=== PATIENT | male | born 1975 | race Caucasian/White ===

== ENCOUNTER 2019-09-05 14:00 | Outpatient (CLI) | payer MEDICARE, MEDICAID, SELFPAY ==
--- NOTE | 2019-09-05 14:24 | ECG_ITS ---
Measurements Intervals Union Rate: 87 P: 68 ME: 148 QRS: 20 QRSD: 96 T: 11 QT: 355 QTc: 428 Interpretive Statements SINUS RHYTHM EARLY PRECORDIAL R/S TRANSITION INFERIOR INFARCT, AGE INDETERMINATE ABNORMAL ECG Electronically Signed On 09-05-2019 15:17:20 COAGULATING OPERATOR by Derek Davis D.O.
[2019-09-05 15:11] LABS: Partial Thromboplastin Time 32.6 SECONDS (22.3-36.8); Prothrombin Time 12.8 Seconds (11.1-14.7)
== END 2019-09-05 14:01 | disposition home or self-care (01) ==
PROVIDERS: PCP Internal Medicine; Visit Provider Urology
DX: Z01.818 Encounter for other preprocedural examination (principal); R94.31 Abnormal electrocardiogram [ECG] [EKG]
CPT/HCPCS: 36415; 85610; 85730; 93005

== ENCOUNTER 2022-03-27 14:52 | Outpatient (CLI) | payer MEDICARE, MEDICAID, SELFPAY ==
--- NOTE | ~2022-03-27 | XR_ITS ---
EXAMINATION: XR abdomen/kub 1V DATE: 03/27/2022 15:30 INDICATION: Bladder stones. TECHNIQUE: A supine view of the abdomen on 3 radiographs was obtained. COMPARISON: CT abdomen and pelvis 03/27/2022 FINDINGS: There are no dilated loops of bowel. There is a large volume of stool in the colon. There a re greater than 20 stones in the bladder measuring up to 5 mm. There is an ostomy in left abdomen. Th e kidneys are obscured by bowel. There are multiple stones in each kidney measuring up to 4 mm on the left. There are stones in the gallbladder. IMPRESSION: 1. Stones in the kidneys and bladder. 2. Cholelithiasis. Reviewed, dictated and finalized at location A.
--- NOTE | ~2022-03-27 | CT_ITS ---
EXAMINATION: CT abdomen pelvis wo con DATE: 03/27/2022 15:22 INDICATION: Bladder stones TECHNIQUE: Computed tomography (CT) of the abdomen and pelvis was performed without intravenous contr ast. Automated exposure control and iterative reconstruction technique were employed. Exam dose: 195 .22 mGy-cm total exam DLP. COMPARISON: 03/27/2022 KUB 11/29/2018 CT abdomen pelvis FINDINGS: Mild discoid atelectasis and/or scarring, right lower lobe. Patchy infiltrate and mild discoid atelectasis//or scarring, left lower lobe. Left lower lobe infiltr ate is new since 11/29/2018. Battery pack is noted in the subcutaneous tissues of the lower left lateral chest wall with lead exte nding cephalad anterior chest wall. Normal heart size. Trace pericardial fluid. No pleural effusions. Multiple gallstones. No gallbladder wall thickening or pericholecystic fluid or fat stranding. No juan a e duct or pancreatic duct dilatation. No hepatic, pancreatic or splenic space-occupying mass lesion. Normal morphology of the adrenal glands. Punctate lower pole right renal nonobstructing calculus. There are calculi in the right renal pelvis, measuring up to 3.5 x 10.2 mm. No right ureteral calculus or right-sided hydroureteronephrosis. Multiple calculi are noted in the left renal pelvis and left lower pole collecting system is staghorn -like appearance. Approximately 2.8 x 5 mm nonobstructing upper pole left renal calculus. No left ureteral calculus is noted. There are numerous calculi within the urinary bladder. There is urinary bladder wall thickening, poss ibly neurogenic. Suprapubic Barr catheter in the urinary bladder. There is a complete loss of subcutaneous tissues beneath the ischial tuberosities since 11/29/2018; th ere is loss of substance and fragmentation of the ischial tuberosities and bone destruction at the po sterior aspect of the iliac bones, sacrum and inferior pubic rami, likely due to osteomyelitis. Left lower quadrant colostomy. There is a prominent amount of fecal material within the colon. No bow el obstruction is evident. Normal appendix. No intraperitoneal free air. There is atherosclerotic calcification but normal caliber of the abdominal aorta and iliac arteries. No intraperitoneal or retroperitoneal or pelvic mass lesion or adenopathy or ascites. IMPRESSION: Prominent bilateral decubitus ulcers with bone destruction/possible osteomyelitis of the posterior iliac bones, sacrum, posterior aspect of the iliac bones, inferior pubic rami an initial t uberosities. Suprapubic Barr catheter Bilateral nephrolithiasis, left greater than right and numerous bladder stones Thickening of the urinary bladder, likely due to neurogenic bladder Left lower quadrant colostomy Cholelithiasis Left lower lobe infiltrate since 11/29/2018 Reviewed, dictated and finalized at Location A. Reviewed, dictated and finalized at location B. IMPRESSION: Prominent bilateral decubitus ulcers with bone destruction/possibl e osteomyelitis of the posterior iliac bones, sacrum, posterior aspect of the i liac bones, inferior pubic rami an initial tuberosities. Suprapubic Barr catheter Bilateral nephrolithiasis, left greater than right and numerous bladder stones Thickening of the urinary bladder, likely due to neurogenic bladder Left lower quadrant colostomy Cholelithiasis Left lower lobe infiltrate since 11/29/2018
== END 2022-03-27 14:53 | disposition home or self-care (01) ==
PROVIDERS: PCP Internal Medicine; Visit Provider Nurse Practitioner Adult Health
DX: N21.0 Calculus in bladder (principal); K80.20 Calculus of gallbladder without cholecystitis without obstruction; N20.0 Calculus of kidney; R91.8 Other nonspecific abnormal finding of lung field
CPT/HCPCS: 74018; 74176

== ENCOUNTER 2022-04-24 00:42 | Day surgery (SDC) | payer MEDICARE, MEDICAID, SELFPAY ==
[2022-04-22 12:11] VITALS: BMI 21.1
--- NOTE | 2022-04-22 12:17 | PC.NURSE ---
Report to the Outpatient Waiting Room, entrance under the green pavilion located off [facility], at time _1000_ on date _[id number]_. OR Time: _1200_. - You and your visitor will be asked to self-screen and do not enter if you have any COVID symptoms. - Only one visitor and NO children visitors are allowed at this time. - The patient visitor is requested to leave or wait in car when not with patient due to restrictions. - A mask is required within the hospital. Patients may have clear liquids (water, carbonated beverages, clear teas, apple juice) until 3 hours prior to surgery with a maximum of 20 ounces. - No food from midnight until time of surgery Hold 9am tube feeding and give no more than 20 oz water with morning medications. Take the following medications with a SIP of water the morning of surgery: ____Baclofen, Gabepentin, and Metoprolol Medications to discontinue per physician ___All vitamins Date to take last dose__Stop today. Please no make-up, nail lithuanian, hairspray, perfume, deodorant, or body powder the day of surgery. No jewelry (including any body piercings) or valuables the day of surgery, leave them at home. Please take a shower or bath the night before, or the morning of, surgery with an antibacterial soap. Wear comfortable, loose fitting clothing. - Jewelry must be removed prior to entering the operating room. Rings and piercings that are not removed may be cut off. - The hospital will not accept responsibility for valuables. - Please leave all valuables, including medications, at home the day of surgery. If you are going home after surgery, a licensed dinkey driver must drive you home. - NO public transportation without another adult. - We recommend that an adult stay with you for 24 hours following discharge. - We also recommend that you do not drive, make important decision, drink alcoholic beverages, or take any drugs that were not prescribed by your health care provider for at least 24 hours after your discharge time. Follow any additional instructions given to you from your surgeon. If you or anyone in your household have experienced Covid symptoms in the past week, please notify your surgeon or the nurse liaison at the phone number below for possible testing. Telephone instructions given to __Domi, Mother_and asked if any additional questions and then verbalized understanding. Patient advised to call surgeon office or pre surgery nurse liaison [phone] if any additional questions.
--- NOTE | 2022-04-23 07:40 | PM.HPGS ---
History of Present Illness History of Present Illness Consent: Risks, benefits, and alternatives have been discussed and questions answered. Patient agrees to proceed with procedure. Chief complaint: Bladder and Kidney Stones Narrative: Masoud Juan is a 46 year old male with a known neurogenic bladder who has a chronic indwelling suprapubic catheter. He was recently scheduled for cystoscopy with extraction of bladder stones. That had to be canceled because of a in a febrile urinary tract infection with sepsis is required admission to an outside hospital. In the interval he has also developed moderate size stones in his left ureter. He presents today for cystoscopy with bladder stone extraction, left ureteroscopy with laser lithotripsy, stone extraction, retrograde pyelogram and possible stent placement. Review of Systems Cardiovascular: Cardiovascular: Denies chest pain, Denies lightheadedness, Denies palpitations and Denies dyspnea Respiratory: Respiratory: Denies dyspnea Gastrointestinal: Gastrointestinal: Denies diarrhea, Denies nausea and Denies vomiting Genitourinary: Genitourinary: Denies hematuria and Denies dysuria Endocrine: Endocrine: Denies palpitations [facility] Past Medical History Medical History (Updated 04/23/22 @ 07:42 by Parminder Wilson MD) CAD (coronary artery disease) Cardiac defibrillator in place CHF (congestive heart failure) Hyperlipidemia Hypertension Multiple sclerosis Paraplegia Social History Social History Smoking packs per day: 0.75 Smoking cigarettes per day: 15.0 Years smoked: 20 Smoking pack-years: 15.00 Smoking status: Current every day smoker Tobacco type: cigarettes Additional smoking assessment comments: 1ppd x 30 years Living arrangements: with family Spiritual care concerns: No Meds Home Medications and Allergies Home Medications Medication Instructions Recorded Confirmed Type ascorbic acid (vitamin C) 1,000 mg 1 g PO DAILY 09/05/19 04/22/22 History tablet (Vitamin C) atorvastatin 40 mg tablet 40 mg PO DAILY 09/05/19 04/22/22 History baclofen 20 mg tablet 20 mg PO TID 09/05/19 04/22/22 History biotin 5 mg tablet 5 mg PO DAILY 09/05/19 04/22/22 History cholecalciferol (vitamin D3) 50 50 mcg PO DAILY 09/05/19 04/22/22 History mcg (2,000 unit) capsule (Vitamin D3) cyanocobalamin (vitamin B-12) 1,000 mcg PO DAILY 09/05/19 04/22/22 History 1,000 mcg tablet (Vitamin B-12) fesoterodine 8 mg tablet,extended 8 mg PO DAILY 09/05/19 04/22/22 History release 24 hr (Toviaz) gabapentin 300 mg capsule 300 mg PO TID 09/05/19 04/22/22 History metoprolol succinate 25 mg 12.5 mg PO DAILY 09/05/19 04/22/22 History tablet,extended release 24 hr mirtazapine 7.5 mg tablet 7.5 mg PO HS 09/05/19 04/22/22 History nitrofurantoin 100 mg PO HS 09/05/19 04/22/22 History monohydrate/macrocrystals 100 mg capsule aspirin 81 mg tablet,delayed 81 mg PO DAILY 04/02/22 04/22/22 History release Allergies Allergy/AdvReac Type Severity Reaction Status Date / Time Penicillins Allergy Unknown UNKNOWN Verified 04/22/22 12:09 REACTION Exam Const: General: no acute distress Resp: Effort & Inspection: normal respiratory effort GI: Inspection: non-distended GI Palp: No abdominal tenderness and No Guarding due to palpation present (GI) Auscultation: normal bowel sounds Assessment and Plan Assessment and plan (1) Bladder stones: Code(s): N21.0 - Calculus in bladder Status: Acute (2) Left ureteral calculus: Code(s): N20.1 - Calculus of ureter Status: Acute Assessment and Plan: Cystoscopy, bladder stone extraction, left ureteroscopy with laser lithotripsy and stone extraction, possible retrograde pyelography and left ureteral stent placement
[2022-04-24] VITALS (7 sets, daily range): BP systolic 103–117; BP diastolic 69–82; PULSE 82–109; RESP 12–18; TEMP 36.1–36.2; O2SAT 97–100
--- NOTE | ~2022-04-24 | XR_ITS ---
EXAMINATION: XR stent kub - surgery DATE: 04/24/2022 11:35 INDICATION: Left internal ureteral stent placement. TECHNIQUE: 2 fluoroscopic images of the abdomen and pelvis were obtained during procedure performed fide Wilson. Radiologist was not present for the imaging or procedure. The amount of fluoroscopy mariella e used during this procedure was 1.1 minutes. COMPARISON: CT and KUB dated 03/27/2022 FINDINGS: Images demonstrate a left internal ureteral stent with loops formed over the expected location of the left kidney and over the bladder. There is retained oral contrast material scattered throughout the colon as well as within the appendix projecting over the right lower quadrant. Lap sponge markers pro ject over the left lower quadrant. Additional catheter likely external to the patient is coiled of th e central abdomen and right upper quadrant. IMPRESSION: 1. Left internal ureteral stent in expected position. See procedure note for further detail. Reviewed, dictated and finalized at location A. IMPRESSION: 1. Left internal ureteral stent in expected position. See procedure note for fu rther detail.
--- NOTE | 2022-04-24 06:44 | WPDHPUPDATE1 ---
History and Physical Update Update Date/Time: 04/24/22 06:44 History and Physical has been reviewed, including an updated exam of the patient. There are NO changes in the patient's condition. Risks, benefits, and alternatives have been discussed and questions answered. Patient agrees to proceed with procedure.
--- NOTE | 2022-04-24 07:47 | WPDANESEPPF ---
Anes - Initial Pre Proc Eval Procedure: Operation Date: 04/24/22 11:00 Proposed Procedures p Cystoscopy, Left Ureteroscopy, Left Stent Placement, Holmium Laser Lithotripsy, Removal of Bladder Stones - Parminder Wilson MD Date/Time: 04/24/22 07:47 Surgeon: Parminder Wilson MD Pre Op Diagnosis: Bladder and Kidney Stones Patient Data Age: 46 Gender: M Height: 1.78 m Weight: 66.8 kg Allergies Allergy/AdvReac Type Severity Reaction Status Date / Time Penicillins Allergy Unknown UNKNOWN Verified 04/24/22 09:40 REACTION Home Medications Medication Instructions Recorded Confirmed Type ascorbic acid (vitamin C) 1,000 mg 1 g PO DAILY 09/05/19 04/22/22 History tablet (Vitamin C) atorvastatin 40 mg tablet 40 mg PO DAILY 09/05/19 04/22/22 History baclofen 20 mg tablet 20 mg PO TID 09/05/19 04/22/22 History biotin 5 mg tablet 5 mg PO DAILY 09/05/19 04/22/22 History cholecalciferol (vitamin D3) 50 50 mcg PO DAILY 09/05/19 04/22/22 History mcg (2,000 unit) capsule (Vitamin D3) cyanocobalamin (vitamin B-12) 1,000 mcg PO DAILY 09/05/19 04/22/22 History 1,000 mcg tablet (Vitamin B-12) fesoterodine 8 mg tablet,extended 8 mg PO DAILY 09/05/19 04/22/22 History release 24 hr (Toviaz) gabapentin 300 mg capsule 300 mg PO TID 09/05/19 04/22/22 History metoprolol succinate 25 mg 12.5 mg PO DAILY 09/05/19 04/22/22 History tablet,extended release 24 hr mirtazapine 7.5 mg tablet 7.5 mg PO HS 09/05/19 04/22/22 History nitrofurantoin 100 mg PO HS 09/05/19 04/22/22 History monohydrate/macrocrystals 100 mg capsule aspirin 81 mg tablet,delayed 81 mg PO DAILY 04/02/22 04/22/22 History release Patient hx anesthesia problems: none Family hx anesthesia problems: none Results Review: All pre-operative results and documents have been reviewed as part of the pre-operative evaluation. [facility] Past Medical History Medical History (Updated 04/23/22 @ 07:42 by Parminder Wilson MD) CAD (coronary artery disease) Cardiac defibrillator in place CHF (congestive heart failure) Hyperlipidemia Hypertension Multiple sclerosis Paraplegia Social History Social History Smoking packs per day: 0.75 Smoking cigarettes per day: 15.0 Years smoked: 20 Smoking pack-years: 15.00 Smoking status: Current every day smoker Tobacco type: cigarettes Additional smoking assessment comments: 1ppd x 30 years Living arrangements: with family Spiritual care concerns: No Anes - Eval Final PreProcedure Day of Procedure 04/24/22 07:47 Patient weight: normal Heart: regular rate and rhythm Lungs: clear to auscultation Airway: Mallampati scale class II Neurological: alert and oriented Last oral intake: >/= 8 hours ASA classification: IV Emergent: no Anesthetic plan: proceed Anesthesia type and monitoring: general LMA and standard monitoring Results Review: All pre-operative results and documents have been reviewed as part of the pre-operative evaluation. Informed Consent: The patient's anesthetic plan and its attendant risks and benefits were discussed with the patient/family/POA. Questions were solicited and answers provided to the satisfaction of the patient/family/POA.
[2022-04-24] MEDS: LACTATED RINGERS 1,000 ML 30 ML IV CONT (09:55)
[2022-04-24] MEDS: ceFAZolin 2 GM/D5W 50 ML 2 GM/50 ML BAG IVPB (10:32)
[2022-04-24] MEDS: LIDOCAINE HCL 2% GEL UROJET 10 ML PKG MUCOUS MEM (10:51)
--- NOTE | 2022-04-24 11:39 | W.PM.PROC2 ---
Procedure Note - Detailed Date of Procedure 04/24/22 Pre-op Diagnosis Bladder stones, left ureteral and renal stones Post-op Diagnosis Same Procedure Performed Cystoscopy, extraction of bladder stones, left ureteral stent removed, left ureteroscopy with laser lithotripsy and stone extraction, left ureteral stent replacement Surgeon Parminder Wilson MD Description of Procedure patient brought to the operative suite was prepped draped in routine sterile fashion while in dorsal lithotomy position after the uneventful induction of a general LMA anesthetic. Cystoscopy was undertaken with a 19F rigid cystoscope. He has either 9 small bladder stones which were evacuated using an [employer] evacuator. Tip of the indwelling stent is grasped brought to the external urethral meatus. A 0.035 in glidewire was advanced in the left renal pelvis. The distal ureter was dilated with an 8 F 10 F dilator and a 12 F / 14 F ureteral access sheath was placed. A 7.5 F flexible ureteral scope was placed in the left ureter. His to moderate size stones are identified. They were irrigated back into the kidney. In addition these 2 stones in his left ureter which measured 8-9 mm he has 2 smaller stones in his left kidney. All stones were fractured into tiny pieces with a 273 micron holmium laser fiber. Larger fragments were extracted with a 1.9 F disposable stone basket. Ureteral scope was removed and a 4.8 F variable length stent is positioned with the proximal coil in renal pelvis and distal coil in the bladder. In withdrawing the ureteral scope were no additional identifiable ureteral stones present. Drains Yes Packing No Pathology Yes Complications No immediate complications Condition Stable Disposition PACU
== END 2022-04-24 13:01 | disposition home or self-care (01) ==
PROVIDERS: PCP Internal Medicine; Visit Provider Urology
PROC: (CPT 52352; principal; 2022-04-24 11:00)
DX: N21.0 Calculus in bladder (principal); N20.2 Calculus of kidney with calculus of ureter; I25.10 Atherosclerotic heart disease of native coronary artery without angina pectoris; E78.5 Hyperlipidemia, unspecified; I11.0 Hypertensive heart disease with heart failure; I50.9 Heart failure, unspecified; G35 Multiple sclerosis; G82.20 Paraplegia, unspecified; Z95.810 Presence of automatic (implantable) cardiac defibrillator; Z79.82 Long term (current) use of aspirin; F17.210 Nicotine dependence, cigarettes, uncomplicated
CPT/HCPCS: 52356; 82365; 88300; A9270; C1769; C2617; J0690; J1100; J2405; J2704; J7120; Q9966

== ENCOUNTER 2022-08-07 00:38 | Day surgery (SDC) | payer MEDICARE, MEDICAID, SELFPAY ==
[2022-08-05 11:05] VITALS: BMI 24.3
--- NOTE | 2022-08-05 11:10 | PC.NURSE ---
Report to the Outpatient Waiting Room, entrance under the green pavilion located off [facility], at time 1130 on date 08/07/22. Planned Procedure Time: 1330. Time changes happen often and if your time is changed the preop area will call you the afternoon before. - You and your visitor will be asked to self-screen and do not enter if you have any COVID symptoms. - Only one visitor is requested with a max of two and NO children visitors are allowed at this time. - The patient visitor may be requested to leave or wait in car when not with patient due to distancing restrictions. - A mask is optional within the hospital. Patients may have clear liquids (water, carbonated beverages, clear teas, apple juice) until 3 hours prior to surgery with a maximum of 20 ounces. - No food from midnight until time of surgery Take the following medications with a SIP of water the morning of surgery: METOPROLOL, GABAPENTIN, BACLOFEN Medications to discontinue per physician: ASPIRIN AND VITAMINS Date to take last dose: NO MORE UNTIL AFTER SURGERY Please no make-up, nail gibraltarian, hairspray, perfume, deodorant, or body powder the day of surgery. No jewelry (including any body piercings) or valuables the day of surgery, leave them at home. Please take a shower or bath the night before, or the morning of, surgery with an antibacterial soap. Wear comfortable, loose fitting clothing. - Jewelry must be removed prior to entering the operating room. Rings and piercings that are not removed may be cut off. - The hospital will not accept responsibility for valuables. - Please leave all valuables, including medications, at home the day of surgery. If you are going home after surgery, a licensed pole truck driver must drive you home. - NO public transportation without another adult if you receive anesthesia. - We recommend that an adult stay with you for 24 hours following discharge. - We also recommend that you do not drive, make important decision, drink alcoholic beverages, or take any drugs that were not prescribed by your health care provider for at least 24 hours after your discharge time. Follow any additional instructions given to you from your surgeon. If you or anyone in your household have experienced Covid symptoms in the past week, please notify your surgeon or the nurse liaison at the phone number below for possible testing. Telephone instructions given to MOM - GANGA and asked if any additional questions and then verbalized understanding. Patient advised to call surgeon office or pre surgery nurse liaison [phone] if any additional questions.
[2022-08-07] VITALS (7 sets, daily range): BP systolic 106–121; BP diastolic 67–84; PULSE 69–93; RESP 12–20; TEMP 36.3–36.8; O2SAT 98–100
--- NOTE | 2022-08-07 06:46 | WPDHPUPDATE1 ---
History and Physical Update Update Date/Time: 08/07/22 06:46 History and Physical has been reviewed, including an updated exam of the patient. There are NO changes in the patient's condition. Risks, benefits, and alternatives have been discussed and questions answered. Patient agrees to proceed with procedure.
--- NOTE | 2022-08-07 10:31 | P.HP_ITS ---
History of Present Illness History of Present Illness Consent: Risks, benefits, and alternatives have been discussed and questions answered. Patient agrees to proceed with procedure. Chief complaint: right renal stones Narrative: Masoud Juan is a 47 year old male who has long history of recurrent urolithiasis. He recently underwent procedures to clear large stone in his left kidney. he is left with a 6-7 mm right renal calculus. After discussion of op tions he elected to preemptively treat this with right ESWL. He is aware the risk including, but not limited to, need for additional procedures, perinephric hematoma and ureteral injury Review of Systems Review of Systems: All systems reviewed & are unremarkable except as noted in HPI and below PMFSH Past Medical History Medical History (Updated 04/23/22 @ 07:42 by Parminder Wilson MD) CAD (coronary artery disease) Cardiac defibrillator in place CHF (congestive heart failure) Hyperlipidemia Hypertension Multiple sclerosis Paraplegia Social History Social History Smoking packs per day: 1 Smoking cigarettes per day: 20.0 Years smoked: 30 Smoking pack-years: 30.00 Smoking status: Current every day smoker Tobacco type: cigarettes Additional smoking assessment comments: 1ppd x 30 years Alcohol intake: never Substance use: never Substance use type: does not use Living arrangements: with family Spiritual care concerns: No Meds Home Medications and Allergies Home Medications Medication Instructions Recorded Confirmed Type ascorbic acid (vitamin C) 1,000 mg 1 g PO DAILY 09/05/19 08/05/22 History tablet (Vitamin C) atorvastatin 40 mg tablet 40 mg PO DAILY 09/05/19 08/05/22 History baclofen 20 mg tablet 20 mg PO TID 09/05/19 08/05/22 History biotin 5 mg tablet 5 mg PO DAILY 09/05/19 08/05/22 History cholecalciferol (vitamin D3) 50 50 mcg PO DAILY 09/05/19 08/05/22 History mcg (2,000 unit) capsule (Vitamin D3) cyanocobalamin (vitamin B-12) 1,000 mcg PO DAILY 09/05/19 08/05/22 History 1,000 mcg tablet (Vitamin B-12) fesoterodine 8 mg tablet,extended 8 mg PO DAILY 09/05/19 08/05/22 History release 24 hr (Toviaz) gabapentin 300 mg capsule 300 mg PO TID 09/05/19 08/05/22 History metoprolol succinate 25 mg 12.5 mg PO DAILY 09/05/19 08/05/22 History tablet,extended release 24 hr mirtazapine 7.5 mg tablet 7.5 mg PO HS 09/05/19 08/05/22 History aspirin 81 mg tablet,delayed 81 mg PO DAILY 04/02/22 08/05/22 History release Allergies Allergy/AdvReac Type Severity Reaction Status Date / Time Penicillins Allergy Unknown UNKNOWN Verified 08/05/22 11:03 REACTION Exam Const: General: no acute distress Resp: Effort & Inspection: normal respiratory effort GI: Inspection: non-distended GI Palp: No abdominal tenderness and No Guarding due to palpation present (GI) Auscultation: normal bowel sounds Assessment and Plan Assessment and plan (1) Right renal stone: Code(s): N20.0 - Calculus of kidney Status: Acute Assessment and Plan: * Right ESWL
--- NOTE | 2022-08-07 12:20 | WPDANESEPPF ---
Anes - Initial Pre Proc Eval Procedure: Operation Date: 08/07/22 13:30 Proposed Procedures p Right Extracorporeal Shock Wave Lithotripsy, - Parminder Wilson MD s Cystoscopy, Right Stent Placement - Parminder Wilson MD Date/Time: 08/07/22 12:20 Surgeon: Parminder Wilson MD Pre Op Diagnosis: right renal stones Patient Data Age: 47 Gender: M Height: 1.78 m Weight: 77.11 kg Allergies Allergy/AdvReac Type Severity Reaction Status Date / Time Penicillins Allergy Unknown UNKNOWN Verified 08/05/22 11:03 REACTION Home Medications Medication Instructions Recorded Confirmed Type ascorbic acid (vitamin C) 1,000 mg 1 g PO DAILY 09/05/19 08/05/22 History tablet (Vitamin C) atorvastatin 40 mg tablet 40 mg PO DAILY 09/05/19 08/05/22 History baclofen 20 mg tablet 20 mg PO TID 09/05/19 08/05/22 History biotin 5 mg tablet 5 mg PO DAILY 09/05/19 08/05/22 History cholecalciferol (vitamin D3) 50 50 mcg PO DAILY 09/05/19 08/05/22 History mcg (2,000 unit) capsule (Vitamin D3) cyanocobalamin (vitamin B-12) 1,000 mcg PO DAILY 09/05/19 08/05/22 History 1,000 mcg tablet (Vitamin B-12) fesoterodine 8 mg tablet,extended 8 mg PO DAILY 09/05/19 08/05/22 History release 24 hr (Toviaz) gabapentin 300 mg capsule 300 mg PO TID 09/05/19 08/05/22 History metoprolol succinate 25 mg 12.5 mg PO DAILY 09/05/19 08/05/22 History tablet,extended release 24 hr mirtazapine 7.5 mg tablet 7.5 mg PO HS 09/05/19 08/05/22 History aspirin 81 mg tablet,delayed 81 mg PO DAILY 04/02/22 08/05/22 History release Patient hx anesthesia problems: none Family hx anesthesia problems: none Results Review: All pre-operative results and documents have been reviewed as part of the pre-operative evaluation. [facility] Past Medical History Medical History CAD (coronary artery disease) Cardiac defibrillator in place CHF (congestive heart failure) Hyperlipidemia Hypertension Multiple sclerosis Paraplegia Social History Social History Smoking packs per day: 1 Smoking cigarettes per day: 20.0 Years smoked: 30 Smoking pack-years: 30.00 Smoking status: Current every day smoker Tobacco type: cigarettes Additional smoking assessment comments: 1ppd x 30 years Alcohol intake: never Substance use: never Substance use type: does not use Living arrangements: with family Spiritual care concerns: No Anes - Eval Final PreProcedure Day of Procedure 08/07/22 12:20 Patient weight: normal Heart: regular rate and rhythm Last oral intake: >/= 8 hours ASA classification: IV Emergent: no Anesthetic plan: proceed Anesthesia type and monitoring: general LMA and standard monitoring Results Review: All pre-operative results and documents have been reviewed as part of the pre-operative evaluation. Informed Consent: The patient's anesthetic plan and its attendant risks and benefits were discussed with the patient/family/POA. Questions were solicited and answers provided to the satisfaction of the patient/family/POA.
[2022-08-07] MEDS: LACTATED RINGERS 1,000 ML 30 ML IV CONT (12:50)
[2022-08-07 13:04] LABS: Appearance Urine Cloudy (Clear); Bilirubin Urine Negative (Negative); Blood Urine 1+ (Negative); Color Urine Yellow (Yellow); Glucose Urine UA Negative (Negative); Ketones Urine Negative (Negative); Leukocyte Esterase Ur 3+ LEU/UL (Negative); Nitrate Urine Positive (Negative); Protein Urine 2+ mg/dL (Negative); Urobilinogen Urine 0.2 mg/dL (<2.0)
[2022-08-07 13:14] LABS: Bacteria Urine 4+ /hpf; Mucus Urine Few /lpf; Renal Epithelial Cells Urine Occasional /hpf (None Seen); WBC Urine >75 /hpf
[2022-08-07 13:16] LABS: Add Urine Microscopic? YES
[2022-08-07 13:20] LABS: INR 1.1; Prothrombin Time 13.6 Seconds (11.1-14.7)
[2022-08-07 13:21] LABS: Partial Thromboplastin Time 31.1 SECONDS (22.3-36.8)
--- NOTE | 2022-08-07 13:58 | W.PM.PROC2 ---
Procedure Note - Detailed Date of Procedure 08/07/22 Pre-op Diagnosis Right renal stone Post-op Diagnosis Same Procedure Performed Right ESWL Surgeon Parminder Wilson MD Anesthesia General Description of Procedure The patient was brought to the operative suite where he was placed in the supine position on the Dornier lithotripsy table. The focal point of the lithotripter was placed at a 7-8mm right renal calculus. A total of 2500 shocks were delivered at a power setting of 4 using shocks gated to his EKG. There appeared to be good fragmentation of the stone. The patient tolerated the procedure well and was taken to the recovery room in good condition. Drains No Packing No Pathology Yes Complications No immediate complications Condition Stable
== END 2022-08-07 16:00 | disposition home or self-care (01) ==
PROVIDERS: PCP Internal Medicine; Visit Provider Urology
PROC: (CPT 50590; principal; 2022-08-07 13:30)
DX: N20.0 Calculus of kidney (principal); I11.0 Hypertensive heart disease with heart failure; I50.9 Heart failure, unspecified; I25.10 Atherosclerotic heart disease of native coronary artery without angina pectoris; E78.5 Hyperlipidemia, unspecified; G35 Multiple sclerosis; G82.20 Paraplegia, unspecified; Z95.810 Presence of automatic (implantable) cardiac defibrillator; F17.210 Nicotine dependence, cigarettes, uncomplicated; Z79.82 Long term (current) use of aspirin
CPT/HCPCS: 50590; 36415; 81001; 85610; 85730; 87077; 87086; 87186; A9270; J0696; J2250; J2405; J2704; J3010; J7120

== ENCOUNTER 2023-02-23 10:21 | Emergency (ER) | payer MEDICARE, MEDICAID, SELFPAY ==
--- NOTE | ~2023-02-23 | XR_ITS ---
CORRECTED REPORT exam description change [facility] 02/26/23 EXAMINATION: XR abdomen NG/feed tube insert This report was recreated on 02/26/23. Original report was DATE: 02/23/2023 11:25 INDICATION: Confirm gastrostomy tube positioning. TECHNIQUE: A single portable AP supine view of the abdomen and pelvis was obtained following injection of 50 mL Omnipaque 350 to the patient's existing percutaneous gastrostomy tube. COMPARISON: None. FINDINGS: Percutaneous gastrostomy tube bulb is outlined by injecting contrast within the lumen of the stomach. No evident extraluminal contrast extravasation. No dilated bowel to suggest obstruction. IMPRESSION: 1. Percutaneous gastrostomy tube in expected position within the body of the stomach. Reviewed, dictated and finalized at location A. MTDD IMPRESSION: 1. Percutaneous gastrostomy tube in expected position within the body of the st omach.
[2023-02-23 10:25] VITALS: BP 119/76; PULSE 80; RESP 16; TEMP 37; O2SAT 100
--- NOTE | 2023-02-23 11:08 | ED.GENADULT ---
HPI - General Adult General Chief complaint: Recheck/Abnormal Lab/Rx Stated complaint: gtube came out, placed three days ago at [place] Time Seen by Provider: 02/23/23 10:59 History of Present Illness HPI narrative: Patient is a 47-year-old male who presents ER with dislodgment of his feeding tube. Patient has chronic debility related to MS. Patient had his feeding tube replaced 3 days ago. No drainage from the site. Patient was moving some bedding when it got caught and pulled out. Patient receives bolus feeding. It was a 20 [place] tube. Related Data Home Medications Medication Instructions Recorded Confirmed ascorbic acid (vitamin C) 1,000 mg 1 g PO DAILY 09/05/19 08/07/22 tablet (Vitamin C) atorvastatin 40 mg tablet 40 mg PO DAILY 09/05/19 08/07/22 baclofen 20 mg tablet 20 mg PO TID 09/05/19 08/07/22 biotin 5 mg tablet 5 mg PO DAILY 09/05/19 08/07/22 cholecalciferol (vitamin D3) 50 50 mcg PO DAILY 09/05/19 08/07/22 mcg (2,000 unit) capsule (Vitamin D3) cyanocobalamin (vitamin B-12) 1,000 mcg PO DAILY 09/05/19 08/07/22 1,000 mcg tablet (Vitamin B-12) fesoterodine 8 mg tablet,extended 8 mg PO DAILY 09/05/19 08/07/22 release 24 hr (Toviaz) gabapentin 300 mg capsule 300 mg PO TID 09/05/19 08/07/22 metoprolol succinate 25 mg 12.5 mg PO DAILY 09/05/19 08/07/22 tablet,extended release 24 hr mirtazapine 7.5 mg tablet 7.5 mg PO HS 09/05/19 08/07/22 aspirin 81 mg tablet,delayed 81 mg PO DAILY 04/02/22 08/07/22 release Allergies Allergy/AdvReac Type Severity Reaction Status Date / Time Penicillins Allergy Unknown UNKNOWN Verified 08/05/22 11:03 REACTION Review of Systems Constitutional: Constitutional: Denies chills and Denies fever(s) Gastrointestinal: Gastrointestinal: Denies abdominal pain, Denies nausea and Denies vomiting Integumentary/Breasts: Skin/Breast: Denies erythema and Denies rash [facility] Past Medical History Medical History (Updated 02/23/23 @ 12:32 by Nicolas Fair MD) CAD (coronary artery disease) Cardiac defibrillator in place CHF (congestive heart failure) History of gastrostomy tube placement Hyperlipidemia Hypertension Multiple sclerosis Paraplegia Suprapubic catheter Social History Social History Smoking packs per day: 1 Smoking cigarettes per day: 20.0 Years smoked: 30 Smoking pack-years: 30.00 Smoking status: Current every day smoker Tobacco type: cigarettes Additional smoking assessment comments: 1ppd x 30 years Alcohol intake: never Substance use: never Substance use type: does not use Living arrangements: with family Spiritual care concerns: No Exam Narrative: GENERAL: Patient with chronic debility but no distress, well-nourished. HEAD: Normocephalic, atraumatic. ENT: Mucous membranes moist. CHEST: Clear to auscultation. No respiratory distress. HEART: Regular rate and rhythm. Normal peripheral pulses. ABDOMEN: Soft, nontender, nondistended. Normal-appearing gastrostomy tube site without bleeding or drainage or skin breakdown but lacking a tube. Normal-appearing suprapubic catheter. SKIN: Warm, dry, no rash. Course Course Emergency Course: Patient resting comfortably. Father and patient informed of imaging results. Discharge home. Vital Signs Vital signs: Vital Signs Temperature 98.6 F 02/23/23 10:25 Pulse Rate 80 02/23/23 10:25 Respiratory Rate 16 02/23/23 10:25 Blood Pressure 119/76 02/23/23 10:25 Pulse Oximetry 100 02/23/23 10:25 Temperature 98.6 F 02/23/23 10:25 Pulse Rate 80 02/23/23 10:25 Respiratory Rate 16 02/23/23 10:25 Blood Pressure 119/76 02/23/23 10:25 Pulse Oximetry 100 02/23/23 10:25 Procedures Feeding Tube Replacement Feeding Tube #1: Feeding Tube Placement Date: 02/23/23 Feeding Tube Placement Time: 11:05 Type of Tube: gastrostomy Insertion Site Prior to Procedur
--- NOTE | 2023-02-23 11:19 | PC.NURSE ---
assumed care. G-tube replaced by Dr. Fair. awaiting xray for confirmation. pt/family has no requests at this time.
== END 2023-02-23 12:50 | disposition home or self-care (01) ==
PROVIDERS: Emergency Provider Emergency Medicine; PCP Internal Medicine
DX: Z43.1 Encounter for attention to gastrostomy (principal); G35 Multiple sclerosis; G82.20 Paraplegia, unspecified; I25.10 Atherosclerotic heart disease of native coronary artery without angina pectoris; I50.9 Heart failure, unspecified; I11.0 Hypertensive heart disease with heart failure; E78.5 Hyperlipidemia, unspecified; F17.210 Nicotine dependence, cigarettes, uncomplicated; Z95.810 Presence of automatic (implantable) cardiac defibrillator; Z79.82 Long term (current) use of aspirin
CPT/HCPCS: 43762; 49450; 99283

== ENCOUNTER 2023-06-19 15:07 | Inpatient (IN) | payer MEDICARE, MEDICAID, SELFPAY ==
[2023-06-19] VITALS (11 sets, daily range): BP systolic 92–139; BP diastolic 69–81; PULSE 94–123; RESP 13–20; TEMP 36.3–39.2; O2SAT 92–99; BMI 23.4
--- NOTE | ~2023-06-19 | CT_ITS ---
EXAMINATION: CT abdomen pelvis wo con DATE: 06/19/2023 17:18 INDICATION: History of renal stones. TECHNIQUE: Computed tomography (CT) of the abdomen and pelvis was performed without intravenous contr ast. The dose-length product was 925.28 mGy-cm. Automated exposure control and iterative reconstructi on technique were employed. COMPARISON: CT dated 03/27/2022 FINDINGS: There is bilateral lower lobe airspace consolidation, left greater than right. Heart size n ormal. No significant pleural or pericardial effusion. There are gallstones. The liver, spleen, pancr eas, adrenal glands are unremarkable. There are bilateral distal ureteral stones with mild bilateral hydronephrosis. There are multiple right renal stones in the renal pelvis. There is nonobstructing le ft renal stone. There is a gastric tube present. Nonobstructive bowel pattern. There is a left lower quadrant colostomy. IMPRESSION: 1. Bilateral distal ureteral stones with mild bilateral hydronephrosis. 2: Bilateral nephrolithiasis. 3: Cholelithiasis. 4: Bilateral lower lobe airspace disease which may represent atelectasis and/or pneumonia. Reviewed, dictated and finalized at location A.
--- NOTE | ~2023-06-19 | XR_ITS ---
EXAMINATION: XR chest 1V portable INDICATION: Shortness of breath. Respiratory infection TECHNIQUE: Portable AP chest at 1648 hours COMPARISON: 05/14/2018 FINDINGS: There are airspace opacities of the left lung base. No pleural effusion or pneumothorax. Th e cardiomediastinal silhouette is normal. An implanted cardiac pacer is present in the left chest wal l. IMPRESSION: 1. Left basilar airspace opacity, consistent with atelectasis versus pneumonia. Reviewed, dictated and finalized at location B.
--- NOTE | ~2023-06-19 | XR_ITS ---
EXAMINATION: XR chest 1V portable DATE: 06/20/2023 07:04 INDICATION: Congestion. TECHNIQUE: A single frontal view of the chest was obtained. COMPARISON: Chest single view 06/19/2023, CT abdomen and pelvis 06/19/2023 FINDINGS: There are airspace opacities in left lower lung zone. A calcified left lung nodule and calc ified left hilar lymph nodes are consistent with old granulomatous disease. No pleural effusion or pn eumothorax. The heart size is normal. A defibrillator overlies left chest. IMPRESSION: 1. Stable airspace opacities in left lower lung zone, consistent with atelectasis versus pneumonia. Reviewed, dictated and finalized at location E. IMPRESSION: 1. Stable airspace opacities in left lower lung zone, consistent with atelectas is versus pneumonia.
--- NOTE | ~2023-06-19 | XR_ITS ---
EXAMINATION: XR stent kub - surgery DATE: 06/19/2023 21:29 INDICATION: Right internal ureteral stent placement TECHNIQUE: Fluoroscopic images from a right internal ureteral stent placement are submitted for lance titus 95 seconds of fluoroscopy time. 8 fluoroscopic images FINDINGS: There is a right double-J internal ureteral stent projecting in expected position, with proximal [place] loop at the level of the renal pelvis and distal loop in the pelvis within the bladder lumen. IMPRESSION: 1. Right internal ureteral stent placement. Please refer to real-time procedural findings for mallorie patiño. Reviewed, dictated and finalized at location A. IMPRESSION: 1. Right internal ureteral stent placement. Please refer to real-time procedu ral findings for details.
[2023-06-19 15:33] LABS: Basophils Percent Auto 0.2 % (0.2-1.2); Hematocrit 43.6 % (42.0-52.0); Hemoglobin 14.2 g/dL (14.0-18.0); Immature Granulocyte Absolute 0.07 K/mm3 (0.00-0.031); Immature Granulocyte Percent A 0.4 % (0-0.5); Immature Platelet Fraction Pct 6.5 % (0.9-11.2); Lymphocytes Absolute Auto 0.92 K/mm3 (0.9-3.2); Lymphocytes Percent Auto 5.5 % (18.3-44.2); Mean Corpuscular HGB Conc 32.6 g/dl (32-36); Mean Corpuscular Volume 89.2 fl (80-100); Mean Platelet Volume 11.8 fl (7.4-10.4); Monocytes Absolute Auto 0.9 K/mm3 (0.1-0.6); Monocytes Percent Auto 5.4 % (2.6-8.5); Neutrophils Absolute Auto 14.9 K/mm3 (1.3-6.7); Neutrophils Percent Auto 88.5 % (45.5-73.1); Platelet Count Result 130 k/mm3 (150-375); Red Blood Count 4.89 M/mm3 (4.6-6.20); Red Cell Distribution Width 13.9 % (11.5-14.5); White Blood Count 16.9 K/mm3 (4.5-10.0)
[2023-06-19 15:41] LABS: Appearance Urine Turbid (Clear); Bacteria Urine 4+ /hpf; Bilirubin Urine Negative (Negative); Blood Urine 3+ (Negative); Color Urine Yellow (Yellow); Glucose Urine UA Negative (Negative); Ketones Urine Negative (Negative); Leukocyte Esterase Ur 3+ LEU/UL (Negative); Need Manual Microscopic Reviewed; Nitrate Urine Negative (Negative); Non Pathogenic Casts >20; Protein Urine 2+ mg/dL (Negative); RBC Urine 21-50 /hpf (0-2); Specific Grav Ur 1.018 (1.001-1.035); Squamous Epithelial Cell Urine Moderate /hpf (Few); Urobilinogen Urine 0.2 mg/dL (<2.0); WBC Urine >100 /hpf; pH Urine 6.5 (5.0-9.0)
[2023-06-19 15:43] LABS: Lactic Acid Reflex 0.9 mmol/L (0.7-2.0)
[2023-06-19 15:44] LABS: Alanine Aminotransferase 25 U/L (6-50); Albumin Level 3.8 g/dL (3.5-5.1); Alkaline Phosphatase 119 U/L (38-126); Anion Gap 8 mmol/L (8-16); Aspartate Amino Transferase 25 U/L (17-59); Bilirubin,Total 0.7 mg/dL (0.2-1.3); Blood Urea Nitrogen 19 mg/dL (9-20); Calcium 8.5 mg/dL (8.4-10.2); Carbon Dioxide 24 mmol/L (22-30); Chloride 100 mmol/L (98-107); Estimated CRCL calculation 80 ml/min; Estimated Glomerular Filt Rate > 60; Glucose 100 mg/dL (65-110); Potassium 4.1 mmol/L (3.4-5.0); Sodium 132 mmol/L (137-145)
[2023-06-19 15:48] LABS: Add Urine Microscopic? YES
--- NOTE | 2023-06-19 17:11 | ED.GENADULT ---
HPI - General Adult General Chief complaint: Fever Stated complaint: fever Time Seen by Provider: 06/19/23 15:59 History of Present Illness HPI narrative: 48-year-old male history of MS presented the ED for evaluation of fever and shortness of breath. Patient does have a suprapubic Barr catheter a G-tube and a colostomy. Patient began developing fever and shortness of breath over the last few days. Patient was hypoxic this morning. Patient also does have a significant history of ureteral calculi and typically follows up with dr Wilson. Related Data Allergies Allergy/AdvReac Type Severity Reaction Status Date / Time Penicillins Allergy Unknown Verified 06/19/23 16:55 Review of Systems Review of Systems: All systems reviewed & are unremarkable except as noted in HPI and below PMFSH Past Medical History Medical History (Updated 06/19/23 @ 18:07 by Columba Jiang PA-C) Multiple sclerosis Social History Social History (Updated 06/19/23 @ 18:08 by Columba Jiang PA-C) Social History: Surrogate medical decision maker: Masoud and Love Juan, parents. Code status: Exam Narrative: APPEARANCE: Ill-appearing HEAD: normocephalic, atraumatic. EYES: PERRLA/EOMI, conjunctivae clear. NOSE: Normal no drainage NECK: Supple. No adenopathy, no masses. RESPIRATORY: Airway patent, respirations nonlabored. Lung congestion bilaterally CARDIOVASCULAR: Regular rate and rhythm without murmurs rubs or gallops. ABDOMINAL: G-tube site well-appearing, colostomy site well-appearing and suprapubic Barr site well-appearing MUSCULOSKELETAL: Moves all extremities. Strength/ROM intact, No edema, No calf tenderness. NEURO: Alert. At his baseline SKIN: Warm, dry. Normal Color Course Course Emergency Course: 48-year-old male with history of MS presented the ED for evaluation of fever and hypoxia. Patient is afebrile in the ED but does have a leukocytosis of 16.9 hemoglobin is 14.2. CMP has no significant abnormalities UA is concerning for urinary tract infection. Patient does have history of kidney stones and patient does have hematuria so a CT scan to rule out kidney stones is being ordered. Chest x-ray was concerning for pneumonia. Patient was started on Levaquin to cover both the UTI and the community-acquired pneumonia. Urine and blood cultures are pending. CT scan did show bilateral ureteral calculi and bilateral hydronephrosis. Case was discussed with urology and they are coming to place ureteral stents. Patient and family were updated the results of the work-up and plan for admission and plan for emergent placement of ureteral stents. All question concerns were addressed Vital Signs Vital signs: Vital Signs Temperature 99.1 F 06/19/23 15:03 Pulse Rate 104 H 06/19/23 15:03 Respiratory Rate 14 06/19/23 15:03 Blood Pressure 95/73 L 06/19/23 15:03 Pulse Oximetry 92 06/19/23 15:03 Oxygen Delivery Room Air 06/19/23 15:03 Temperature 102.5 F H 06/19/23 19:03 Pulse Rate 123 H 06/19/23 19:03 Respiratory Rate 20 06/19/23 19:03 Blood Pressure 117/73 06/19/23 19:03 Pulse Oximetry 94 06/19/23 19:03 Oxygen Delivery Room Air 06/19/23 15:03 Medical Decision Making Differential Diagnosis Differential Diagnosis: COVID, pneumonia, aspiration pneumonia, urinary tract infection, infected stone Vital Signs Vital Signs: Vital Signs Temperature 99.1 F 06/19/23 15:03 Pulse Rate 104 H 06/19/23 15:03 Respiratory Rate 14 06/19/23 15:03 Blood Pressure 95/73 L 06/19/23 15:03 Pulse Oximetry 92 06/19/23 15:03 Oxygen Delivery Room Air 06/19/23 15:03 Temperature 102.5 F H 06/19/23 19:03 Pulse Rate 123 H 06/19/23 19:03 Respiratory Rate 20 06/19/23 19:03 Blood Pressure 117/73 06/19/23 19:03 Pulse Oximetry 94 06/19/23 19:03 Oxygen Delivery Room Air 06/19/23 15:03 Lab Data Lab results reviewed: Yes I reviewed the patient's lab results.
[2023-06-19] MEDS: ACETAMINOPHEN 500 MG TABLET 1000 MG PO (17:44)
--- NOTE | 2023-06-19 17:52 | PM.IMHP ---
H&P: HPI History of Present Illness Date/Time: 06/19/23 18:00 Chief Complaint: Fever. Narrative: This is a 48-year-old male with history of primary progressive multiple sclerosis, kidney stones, MN, and cardiac arrest status post defibrillator insertion who presented to the emergency department via EMS from home for evaluation of a fever. The patient provides the following history; his parents provide additional information with the patient's permission. He was diagnosed with MS around the age of 31 and he has not been able to walk for the past 10 years. He has limited feeling from the chest down and has a colostomy and suprapubic catheter. He also has a gastrostomy tube and does not really take anything in p.o. aside from occasional chocolate milk and according to the parents he seems to do well with that. He has a very weak cough and they have a cough assist device at home. The last 24 hours or so he has developed a cough and they have noticed that he appears short of breath. He has also developed a fever and they brought him in for evaluation. Temperature was as high as 102.5? F in the ED. Blood pressures were initially in the 90 systolic but have improved with IV fluids. He has been in a sinus tachycardia with rates up into the 120s. Labs were significant for a WBC count of 16.9, platelet 130, sodium 132, creatinine 0.90. Urine showed 3+ leukocyte esterase, greater than 100 wbc's, and 4+ bacteria. He tested negative for influenza, RSV, and COVID. Chest x-ray showed left basilar airspace disease consistent with atelectasis versus pneumonia. CT of the abdomen and pelvis showed bilateral distal ureteral stones with mild bilateral hydronephrosis, bilateral nephrolithiasis, cholelithiasis, and bilateral lower lobe airspace disease which may represent atelectasis and/or pneumonia. In the ED he received IV fluid boluses and levofloxacin. He was taken to OR per Urology and is status post bilateral ureteral stent placement. Review of Systems Review of Systems: Twelve systems were reviewed. Cough is not been very productive. Fever as above. No sore throat. No chest pain. He denies abdominal pain. Parents have not noticed any loose stools in his colostomy day. They have not noticed any blood in the urine. Except as documented, all other systems were reviewed and are negative. PMFSH Past Medical History Medical History (Updated 06/19/23 @ 22:50 by Columba Jiang PA-C) Coronary artery disease History of MN x2, 1 in 2018 and another in 2020. Kidney stone Primary chronic progressive multiple sclerosis Patient is wheelchair-bound. Has suprapubic catheter, colostomy, and G-tube. Surgical History Surgical History (Updated 06/19/23 @ 22:50 by Columba Jiang PA-C) History of colostomy History of gastrostomy tube placement History of implantable cardioverter-defibrillator (ICD) insertion For history of cardiac arrest x2. History of oral surgery History of suprapubic catheter History of ureter stent Family History Family History (Updated 06/19/23 @ 22:50 by Columba Jiang PA-C) Other Family history non-contributory Social History Social History (Updated 06/19/23 @ 22:51 by Columba Jiang PA-C) Social History: Surrogate medical decision maker: Masoud and Love Juan, parents. Code status: Full code. Additional living arrangements comments: Lives with parents in [place]. He has 3 grown sons. Meds Home Medications and Allergies Allergies Allergy/AdvReac Type Severity Reaction Status Date / Time Penicillins Allergy Unknown Verified 06/19/23 16:55 Vital Signs Vital Signs - 24 hr 06/19/23 15:03 06/19/23 15:35 06/19/23 17:27 Temperature 99.1 F 101.9 F H Pulse Rate 104 H 100 Respiratory Rate 14 13 Blood Pressure 95/73 L 92/72 L Pulse Oximetry 92 94 Oxygen Delivery Room Air Exam Narrative: General: Moderately ill-appearing male in the semi-Sanches position in bed. Weight: 63.5
[2023-06-19] MEDS: levoFLOXacin 750 MG/D5W 150 ML 750 MG/150 ML BAG 100 MG IVPB (18:01)
[2023-06-19 18:51] LABS: Influenza A QL RT-PCR Negative (Negative); Influenza B QL RT-PCR Negative (Negative); RSV RNA, RT-PCR Negative (Negative); SARS-CoV-2 RNA PCR Negative (Negative)
--- NOTE | 2023-06-19 19:02 | PC.NURSE ---
Patient has a fever of 102. provider made aware and states to put ice packs in armpits and get a fan.
--- NOTE | 2023-06-19 19:45 | WPDANESEPPF ---
Anes - Initial Pre Proc Eval Procedure: cysto, b/l stent placement Date/Time: 06/19/23 19:45 Surgeon: Salvador Gastelum MD Pre Op Diagnosis: sepsis, hydronephrosis Pre Op Diagnosis: fever Patient Data Age: 48 Gender: M Height: 1.83 m Weight: 63.5 kg Last Vital Signs Temp 39.2 C H 06/19/23 19:03 Pulse 123 H 06/19/23 19:03 Resp 20 06/19/23 19:03 BP 117/73 06/19/23 19:03 Pulse Ox 94 06/19/23 19:03 O2 Del Method Room Air 06/19/23 15:03 Allergies Allergy/AdvReac Type Severity Reaction Status Date / Time Penicillins Allergy Unknown Verified 06/19/23 16:55 Laboratory Tests 06/19/23 06/19/23 15:23 18:00 WBC 16.9 H K/mm3 (4.5-10.0) RBC 4.89 M/mm3 (4.6-6.20) Hgb 14.2 g/dL (14.0-18.0) Hct 43.6 % (42.0-52.0) MCV 89.2 fl (80-100) MCH 29.0 pg (26-34) MCHC 32.6 g/dl (32-36) RDW 13.9 % (11.5-14.5) Plt Count 130 L k/mm3 (150-375) MPV 11.8 H fl (7.4-10.4) Immature Gran % (Auto) 0.4 % (0-0.5) Neut % (Auto) 88.5 H % (45.5-73.1) Lymph % (Auto) 5.5 L % (18.3-44.2) [place] % (Auto) 5.4 % (2.6-8.5) Eos % (Auto) 0.0 % (0-4.4) Baso % (Auto) 0.2 % (0.2-1.2) Lymph # (Auto) 0.92 K/mm3 (0.9-3.2) [place] # (Auto) 0.9 H K/mm3 (0.1-0.6) Eos # (Auto) 0.0 K/mm3 (0-0.3) Baso # (Auto) 0.0 K/mm3 (0.0-0.1) Abs Immat Gran (auto) 0.07 H K/mm3 (0.00-0.031) Absolute Neuts (auto) 14.9 H K/mm3 (1.3-6.7) Absolute Nucleated RBC 0.0 K/mm3 (0.0-0.012) Nucleated RBC % 0.0 % (0.0-0.2) % Immature Plt Fraction 6.5 % (0.9-11.2) Sodium 132 L mmol/L (137-145) Potassium 4.1 mmol/L (3.4-5.0) Chloride 100 mmol/L (98-107) Carbon Dioxide 24 mmol/L (22-30) Anion Gap 8 mmol/L (8-16) BUN 19 mg/dL (9-20) Creatinine 0.90 mg/dL (0.7-1.3) Estim Creat Clear Calc 80 ml/min Estimated GFR > 60 (59 - ) Glucose 100 mg/dL (65-110) Lactic Acid 0.9 mmol/L (0.7-2.0) Calcium 8.5 mg/dL (8.4-10.2) Total Bilirubin 0.7 mg/dL (0.2-1.3) AST 25 U/L (17-59) ALT 25 U/L (6-50) Alkaline Phosphatase 119 U/L (38-126) Total Protein 7.0 g/dL (6.3-8.2) Albumin 3.8 g/dL (3.5-5.1) Urine Color Yellow (Yellow) Urine Appearance Turbid H (Clear) Urine pH 6.5 (5.0-9.0) Ur Specific [place] 1.018 (1.001-1.035) Urine Protein 2+ H mg/dL (Negative) Urine Glucose (UA) Negative mg/dL (Negative) Urine Ketones Negative mg/dL (Negative) Ur Blood (Man) 3+ H (Negative) Urine Nitrate Negative (Negative) Urine Bilirubin Negative (Negative) Urine Urobilinogen 0.2 mg/dL (<2.0) Add Ur Microanalysis Reviewed Leukocyte Esterase Rfl 3+ H CIERRA/UL (Negative) Urine RBC 21-50 H /hpf (0-2) Urine WBC >100 H /hpf Ur Squamous Epith Cells Moderate /hpf (Few) Urine Bacteria 4+ H /hpf Urine Casts >20 Influenza A (RT-PCR) Negative (Negative) Influenza B (RT-PCR) Negative (Negative) RSV (RT-PCR) Negative (Negative) SARS-CoV-2 RNA (RT-PCR) Negative (Negative) Patient hx anesthesia problems: none Family hx anesthesia problems: none Results Review: All pre-operative results and documents have been reviewed as part of the pre-operative evaluation. [facility] Past Medical History Medical History (Updated 06/19/23 @ 19:49 by Star Argulelo, ) History of heart attack 1 in 2017 and another in 2019 ICD (implantable cardioverter-defibrillator) in place due to multiple heart attacks Multiple sclerosis wheelchair bound, suprapubic catheter, G-tube, colostomy Sepsis Social History Social History (Updated 06/19/23 @ 18:0
--- NOTE | 2023-06-19 20:08 | PC.NURSE ---
Spoke with Bridgette from OR for report.
--- NOTE | 2023-06-19 20:10 | WPDURCON ---
Assessment and Plan Assessment and plan (1) Bilateral ureteral calculi: Code(s): N20.1 - Calculus of ureter Status: Acute Assessment and Plan: To OR emergently for bilateral ureteral stents - will need definitive stone management in future (2) Acute UTI: Code(s): N39.0 - Urinary tract infection, site not specified Status: Acute Assessment and Plan: - given levaquin in Er, if unstable would broaden (3) Sepsis: Qualifiers: Severe sepsis acute organ dysfunction type: critical illness myopathy Code(s): A41.9 - Sepsis, unspecified organism Status: Acute Urology Consult Note HPI Date Seen: 06/19/23 Requesting Physician: Salvador Gastelum MD Primary Care Provider: Sarah Tirado, Consult Narrative Narrative: Masoud Juan is a 48 year old male with history of MS, kidney stones, chronic SP Tube, G tube presented for fevers and hypoxia. In ER found to have leukocytosis, normal chemistry, Urine with SP with UA concerning for infection. CT obtained demonstrating bilateral distal ureteral stones, Right large UPJ stone, Left hydro, minimal right hydro. IN ER patient febrile and increasingly tachycardic. Review of Systems Review of Systems: ROS unobtainable: Yes unobtainable due to medical condition PMFSH Past Medical History Medical History (Updated 06/19/23 @ 20:18 by Salvador Gastelum MD) History of heart attack 1 in 2018 and another in 2020 ICD (implantable cardioverter-defibrillator) in place due to multiple heart attacks Multiple sclerosis wheelchair bound, suprapubic catheter, G-tube, colostomy Sepsis Social History Social History Social History: Surrogate medical decision maker: Masoud and Love Juan, parents. Code status: Meds Home Medications and Allergies Allergies Allergy/AdvReac Type Severity Reaction Status Date / Time Penicillins Allergy Unknown Verified 06/19/23 16:55 Vital Signs Vital Signs - 24 hr 06/19/23 15:03 06/19/23 15:35 06/19/23 17:27 Temperature 37.3 C 38.8 C H Pulse Rate 104 H 100 Respiratory Rate 14 13 Blood Pressure 95/73 L 92/72 L Pulse Oximetry 92 94 Oxygen Delivery Room Air 06/19/23 19:03 Temperature 39.2 C H Pulse Rate 123 H Respiratory Rate 20 Blood Pressure 117/73 Pulse Oximetry 94 Oxygen Delivery Results Labs 06/19/23 15:23 06/19/23 15:23 Labs: Short CBC 06/19/23 Range/Units 15:23 WBC 16.9 H (4.5-10.0) K/mm3 Hgb 14.2 (14.0-18.0) g/dL Hct 43.6 (42.0-52.0) % Plt Count 130 L (150-375) k/mm3 BMP 06/19/23 15:23 Sodium 132 L Potassium 4.1 Chloride 100 Carbon Dioxide 24 BUN 19 Creatinine 0.90 Glucose 100 Calcium 8.5 Liver Function 06/19/23 Range/Units 15:23 Total Bilirubin 0.7 (0.2-1.3) mg/dL AST 25 (17-59) U/L ALT 25 (6-50) U/L Alkaline Phosphatase 119 (38-126) U/L Albumin 3.8 (3.5-5.1) g/dL Urine 06/19/23 Range/Units 15:23 Urine Color Yellow (Yellow) Urine Appearance Turbid H (Clear) Urine pH 6.5 (5.0-9.0) Ur Specific [place] 1.018 (1.001-1.035) Urine Protein 2+ H (Negative) mg/dL Urine Glucose (UA) Negative (Negative) mg/dL Imaging Radiologist's impression: IMPRESSION: 1. Bilateral distal ureteral stones with mild bilateral hydronephrosis. 2: Bilateral nephrolithiasis. 3: Cholelithiasis. 4: Bilateral lower lobe airspace disease which may represent atelectasis and/or pneumonia.
--- NOTE | 2023-06-19 20:56 | SUR.OPER ---
300mL dark yellow urine with sediment drained from the patient's navarrete at 2039
[2023-06-19] MEDS: LACTATED RINGERS 1,000 ML 30 ML IV CONT (21:28)
--- NOTE | 2023-06-19 21:34 | P.OP_ITS ---
Procedure Note - Detailed Date of Procedure 06/19/23 Pre-op Diagnosis Bilateral ureteral stones Sepsis Urinary tract infection Post-op Diagnosis Same Procedure Performed Cystoscopy Bilateral ureteral stent placement Exchange of suprapubic tube (modifier 22 due to significant increased difficulty procedure due to patient's severe musculoskeletal contractures, irregular anatomy, and sepsis leading to this case taking at least 2 times longer than average) Surgeon Salvador Gastelum MD Anesthesia MAC Description of Procedure After obtaining informed consent we proceeded the operating room. The patient was placed in the supine position. He had been given doses of antibiotics in the emergency department. SCD boots were placed. His suprapubic catheter was removed. He was then prepped and draped in the supine position initially. We began by passing a well lubricated flexible cystoscope per the urethra. We entered the bladder. The bladder was notable for diffuse erythema likely from longstanding catheterization and inflammation. We performed a visual inspection of the entire bladder there was no unexpected foreign objects, tumors, or other concerning findings. We then investigated the bladder trying to identify the ureteral orifices, due to very high bladder neck somewhat altered anatomy we were not initially able to identify the orifices. He was then placed in a modified lithotomy position due to his contractures and redraped. Attempted to pass a 22 [place]ian rigid cystoscope per the urethra able to pass along the length of the urethra however within the prostate was unable to bypass prostate into the bladder due to an extremely elevated and firm bladder neck. Given this the scope was withdrawn. The flexible scope was reintroduced. After careful inspection was able to identify the patient's right ureteral orifice. This was cannulated with a Sensor wire. This was able to be passed along the course of the ureter all the way into an upper pole calyx. Stone was visualized in the distal ureter as well as a large stone in the renal pelvis. Once the wire was in the upper pole. Under final fluoroscopic guidance a 6 [place]ian variable length stent was able to be passed. There was good curl pole calyx distant rhythmic the ureter into the bladder. There was good curl within the bladder. Then re- entered the bladder with the scope. We were able to identify the left ureteral orifice. A similar manner this was cannulated with a Sensor wire which was again able to be passed along the course of the ureter into the renal pelvis and a calyx. Once wire was placed scope was withdrawn. A 6 [place]ian variable length stent was passed on this side as well under fluoroscopic visualization. There was a good curl within the renal pelvis and the bladder. A new suprapubic catheter was placed and balloon inflated. The bladder was drained. This concluded the procedure which the patient tolerated without apparent complication. Implants Six [place]ian variable length stent bilaterally Estimated Blood Loss 10 (mL) Complications No immediate complications Disposition PACU
--- NOTE | 2023-06-19 23:10 | ADMGEN ---
This patient, Masoud Juan, was admitted to IMU Room 211-01. Patient/family oriented to hospital policies and general routines including ID bracelet, bed and alarms, visiting hours, pain management, procedures, bathroom and other care routines, personal items, smoking policy, room service/diet, and visiting hours. Information on how to activate the Rapid Response Team has been discussed. Patient/Family are encouraged to report perceived risks to care and to ask questions if they do not understand what they are told or what they should do.
--- NOTE | 2023-06-19 23:22 | ADMGEN ---
This patient, Masoud Juan, was admitted to IMU Room 211-01 at 2230 Patient/family oriented to hospital policies and general routines including ID bracelet, bed and alarms, visiting hours, pain management, procedures, bathroom and other care routines, personal items, smoking policy, room service/diet, and visiting hours. Information on how to activate the Rapid Response Team has been discussed. Patient/Family are encouraged to report perceived risks to care and to ask questions if they do not understand what they are told or what they should do.
[2023-06-20] VITALS (31 sets, daily range): BP systolic 96–155; BP diastolic 61–74; PULSE 82–135; RESP 18–24; TEMP 36.6–38.6; O2SAT 94–100
[2023-06-20 00:05] LABS: Alanine Aminotransferase 28 U/L (6-50); Albumin Level 4.2 g/dL (3.5-5.1); Alkaline Phosphatase 135 U/L (38-126); Anion Gap 9 mmol/L (8-16); Aspartate Amino Transferase 27 U/L (17-59); Bilirubin,Total 0.8 mg/dL (0.2-1.3); Blood Urea Nitrogen 15 mg/dL (9-20); Calcium 8.9 mg/dL (8.4-10.2); Carbon Dioxide 26 mmol/L (22-30); Chloride 102 mmol/L (98-107); Estimated CRCL calculation 92 ml/min; Estimated Glomerular Filt Rate > 60; Glucose 107 mg/dL (65-110); Potassium 4.2 mmol/L (3.4-5.0); Sodium 137 mmol/L (137-145)
[2023-06-20 00:07] LABS: Hemoglobin 14.8 g/dL (14.0-18.0); Mean Corpuscular HGB Conc 32.2 g/dl (32-36); Mean Corpuscular Hemoglobin 29.8 pg (26-34); Mean Corpuscular Volume 92.6 fl (80-100); Mean Platelet Volume 12.1 fl (7.4-10.4); Platelet Count Result 120 k/mm3 (150-375); Red Blood Count 4.97 M/mm3 (4.6-6.20); White Blood Count 14.9 K/mm3 (4.5-10.0)
[2023-06-20] MEDS: CEFEPIME 2 GM/NS 50 ML 2 GM/50 ML BAG IVPB ×3 (00:56→23:36)
[2023-06-20] MEDS: AZITHROMYCIN 500 MG/NS 250 ML 500 MG/250 ML BAG 250 MG IVPB ×2 (01:37→22:20)
[2023-06-20 01:48] LABS: Magnesium 1.9 mg/dL (1.6-2.3)
[2023-06-20] MEDS: IPRATROPIUM BR 0.02% INH SOLN 0.5 MG/2.5 ML VIAL INHALATION ×4 (02:02→20:30)
[2023-06-20] MEDS: ACETYLCYSTEINE 20% INHAL SOLN 800 MG/4 ML VIAL 200 MG INHALATION ×4 (02:03→20:30)
[2023-06-20] MEDS: LEVALBUTEROL NEB 1.25 MG/3 ML 0.63 MG INHALATION ×4 (02:03→20:30)
[2023-06-20] MEDS: ACETAMINOPHEN ELIXIR 325 MG/10.15 ML UDC 650 MG PO (02:09)
--- NOTE | 2023-06-20 02:31 | PCRCNOTE ---
Placed pt on AIRVO 40L/45% due to increased work of breathing. NT suctioned Pt and gave neb treatment.
[2023-06-20 04:59] LABS: Alveolar/Arterial O2 Gradient 194.6 mmHg; Base Excess ABG -2.1 mEq/l (+/-2.0); Fractional Inspired Oxygen 45 %; HCO3 ABG 21.1 mEq/l (22.0-26.0); Oxygen Content ABG 19.7 %vol (16.0-22.0); Oxygen Saturation ABG 97.2 % (95.0-100.0); Oxyhemoglobin 96.2 % THb (90.0-100.0); PCO2 ABG 31.9 mmHg (35.0-45.0); Total Hemoglobin 14.5 g/dL (12.0-18.0); pH ABG 7.438 (7.350-7.450)
[2023-06-20 05:00] LABS: Device HIGH FLOW THERAPY; Site Drawn RIGHT BRACHIAL
[2023-06-20 05:06] LABS: Basophils Percent Auto 0.2 % (0.2-1.2); Hematocrit 41.4 % (42.0-52.0); Hemoglobin 13.2 g/dL (14.0-18.0); Immature Granulocyte Absolute 0.06 K/mm3 (0.00-0.031); Immature Granulocyte Percent A 0.5 % (0-0.5); Immature Platelet Fraction Pct 6.5 % (0.9-11.2); Lymphocytes Absolute Auto 0.68 K/mm3 (0.9-3.2); Lymphocytes Percent Auto 5.7 % (18.3-44.2); Mean Corpuscular HGB Conc 31.9 g/dl (32-36); Mean Corpuscular Hemoglobin 29.1 pg (26-34); Mean Corpuscular Volume 91.4 fl (80-100); Monocytes Absolute Auto 0.6 K/mm3 (0.1-0.6); Monocytes Percent Auto 4.6 % (2.6-8.5); Neutrophils Absolute Auto 10.6 K/mm3 (1.3-6.7); Platelet Count Result 104 k/mm3 (150-375); Red Blood Count 4.53 M/mm3 (4.6-6.20); Red Cell Distribution Width 13.9 % (11.5-14.5); White Blood Count 11.9 K/mm3 (4.5-10.0)
[2023-06-20 05:22] LABS: Alanine Aminotransferase 24 U/L (6-50); Albumin Level 3.5 g/dL (3.5-5.1); Alkaline Phosphatase 115 U/L (38-126); Anion Gap 10 mmol/L (8-16); Aspartate Amino Transferase 29 U/L (17-59); Bilirubin,Total 0.5 mg/dL (0.2-1.3); Blood Urea Nitrogen 15 mg/dL (9-20); Calcium 8.4 mg/dL (8.4-10.2); Carbon Dioxide 20 mmol/L (22-30); Chloride 107 mmol/L (98-107); Estimated CRCL calculation 483 ml/min; Estimated Glomerular Filt Rate > 60; Glucose 155 mg/dL (65-110); Potassium 3.4 mmol/L (3.4-5.0); Sodium 137 mmol/L (137-145)
[2023-06-20 05:37] LABS: NT Pro B Type Natriuretic Pept 1100 pg/mL (19.9-100)
[2023-06-20] MEDS: DEXTROSE 5%/LACTATED RINGERS 1,000 ML 125 ML IV CONT ×3 (06:04→23:52)
--- NOTE | 2023-06-20 07:48 | PM.IMPN ---
Progress Note: A&P Assessment and Plan (1) Sepsis: Qualifiers: Severe sepsis acute organ dysfunction type: critical illness myopathy Code(s): A41.9 - Sepsis, unspecified organism Status: Acute (2) Urinary tract infection: Code(s): N39.0 - Urinary tract infection, site not specified Status: Acute (3) Bilateral ureteral calculi: Code(s): N20.1 - Calculus of ureter Status: Acute (4) Bilateral hydronephrosis: Code(s): N13.30 - Unspecified hydronephrosis Status: Acute (5) Hypoxia: Code(s): R09.02 - Hypoxemia Status: Acute (6) Left lower lobe pneumonia: Code(s): J18.9 - Pneumonia, unspecified organism Status: Acute (7) Multiple sclerosis: Code(s): G35 - Multiple sclerosis Status: Acute (8) Acute UTI: Code(s): N39.0 - Urinary tract infection, site not specified Status: Acute (9) Pneumonia: Code(s): J18.9 - Pneumonia, unspecified organism Status: Acute Plan (1) Sepsis: ?Code(s): A41.9 - Sepsis, unspecified organism ?Status:?Acute ?Assessment and Plan: SOFA score is 2 (hypotension, thrombocytopenia). Blood pressures have improved with IV fluids. Secondary to urinary tract infection and pneumonia. Blood, urine, and sputum cultures ordered. (2) Urinary tract infection: ?Code(s): N39.0 - Urinary tract infection, site not specified ?Status:?Acute ?Assessment and Plan: Patient received a dose of levofloxacin in the emergency department. Broaden coverage to cefepime, pending cultures. (3) Bilateral ureteral calculi: ?Code(s): N20.1 - Calculus of ureter ?Status:?Acute ?Assessment and Plan: Status post cystoscopy with role stent placement and exchange of suprapubic tube per Dr. Bassett (urology). (4) Bilateral hydronephrosis: ?Code(s): N13.30 - Unspecified hydronephrosis ?Status:?Acute ?Assessment and Plan: Plan as detailed above. (5) Hypoxia: ?Code(s): R09.02 - Hypoxemia ?Status:?Acute ?Assessment and Plan: SpO2 was 88% on room air on EMS arrival and he is currently on 2 L. Likely related to pneumonia. Aspiration and PE seem unlikely. Wean as tolerated. (6) Left lower lobe pneumonia: ?Code(s): J18.9 - Pneumonia, unspecified organism ?Status:?Acute ?Assessment and Plan: Continue cefepime and azithromycin. Attempt sputum for culture.? Check pneumococcal and Legionella urinary antigens as well as mycoplasma IgM. (7) Multiple sclerosis: ?Code(s): G35 - Multiple sclerosis ?Status:?Acute ?Assessment and Plan: Primary progressive. Recently prescribed methotrexate however patient declined due to side effect profile. History of cardiac arrest due to ventricular arrhythmia Status post AICD Denies AICD discharge recently Subjective Date/time seen: 06/20/23 07:48 Interval history: I saw and exam patient today, patient has MS, paralyses lower extremities, has indwelling Barr catheter, dark cloudy urine drained out. Patient also has a cough with scant phlegm. Denies nausea vomiting Exam Narrative: General: Moderately ill-appearing male in the semi-Sanches position in bed. Weight: 63.5 kg. BMI: 19.0. HEENT: PERRL, EOMI. Sclera anicteric. Tacky mucous membranes. Neck: Supple. Respiratory: Mildly tachypneic. Currently on 2 L nasal cannula. Coarse lung sounds at the bases. Cardiovascular: Tachycardic with normal S1-S2. Gastrointestinal: Abdomen is soft, nontender, and nondistended with positive bowel sounds. G-tube and colostomy and suprapubic site are clean and dry. Skin: Warm and dry. No rash or lesions on limited exam. Extremities: No cyanosis, clubbing, or edema. Neurological: Alert. Cranial nerves 2-12 are grossly intact. Minimal movement of the lower extremities. Footdrop. Able to move upper extremities, right greater than left. Psych
[2023-06-20] MEDS: METOPROLOL TARTRATE 12.5 MG TABLET FEED TUBE ×2 (16:33→20:19)
[2023-06-20] MEDS: GABAPENTIN 300 MG CAPSULE FEED TUBE (16:34)
[2023-06-20] MEDS: BACLOFEN 10 MG TABLET 20 MG FEED TUBE (16:34)
[2023-06-20] MEDS: CHOLECALCIFEROL 1,000 UNITS TABLET 1000 UNITS FEED TUBE (16:34)
[2023-06-20] MEDS: ASCORBIC ACID 500 MG TABLET FEED TUBE (20:19)
[2023-06-21] VITALS (29 sets, daily range): BP systolic 102–113; BP diastolic 55–70; PULSE 67–98; RESP 16–20; TEMP 36.3–37.3; O2SAT 96–100
[2023-06-21] MEDS: IPRATROPIUM BR 0.02% INH SOLN 0.5 MG/2.5 ML VIAL INHALATION ×4 (02:00→19:45)
[2023-06-21] MEDS: LEVALBUTEROL NEB 1.25 MG/3 ML 0.63 MG INHALATION ×4 (02:00→19:45)
[2023-06-21] MEDS: ACETYLCYSTEINE 20% INHAL SOLN 800 MG/4 ML VIAL 200 MG INHALATION ×4 (02:00→19:45)
--- NOTE | 2023-06-21 09:07 | PM.IMPN ---
Progress Note: A&P Assessment and Plan (1) Sepsis: Qualifiers: Severe sepsis acute organ dysfunction type: critical illness myopathy Code(s): A41.9 - Sepsis, unspecified organism Status: Acute (2) Urinary tract infection: Code(s): N39.0 - Urinary tract infection, site not specified Status: Acute (3) Bilateral ureteral calculi: Code(s): N20.1 - Calculus of ureter Status: Acute (4) Bilateral hydronephrosis: Code(s): N13.30 - Unspecified hydronephrosis Status: Acute (5) Hypoxia: Code(s): R09.02 - Hypoxemia Status: Acute (6) Left lower lobe pneumonia: Code(s): J18.9 - Pneumonia, unspecified organism Status: Acute (7) Multiple sclerosis: Code(s): G35 - Multiple sclerosis Status: Acute (8) Acute UTI: Code(s): N39.0 - Urinary tract infection, site not specified Status: Acute (9) Pneumonia: Code(s): J18.9 - Pneumonia, unspecified organism Status: Acute Plan (1) Sepsis: ?Code(s): A41.9 - Sepsis, unspecified organism ?Status:?Acute ?Assessment and Plan: SOFA score is 2 (hypotension, thrombocytopenia). Blood pressures have improved with IV fluids. Secondary to urinary tract infection and pneumonia. Blood, urine, and sputum cultures ordered. 06/21, urine culture grows Pseudomonas aeruginosa susceptible to cefepime, blood culture no growth so far, patient has low-grade fever over the night, blood pressure stable. Continue cefepime IV (2) Urinary tract infection: ?Code(s): N39.0 - Urinary tract infection, site not specified ?Status:?Acute ?Assessment and Plan: Patient received a dose of levofloxacin in the emergency department. Broaden coverage to cefepime, urine culture grows Pseudomonas aeruginosa, susceptible to cefepime (3) Bilateral ureteral calculi: ?Code(s): N20.1 - Calculus of ureter ?Status:?Acute ?Assessment and Plan: Status post cystoscopy with role stent placement and exchange of suprapubic tube per Dr. Bassett (urology). (4) Bilateral hydronephrosis: ?Code(s): N13.30 - Unspecified hydronephrosis ?Status:?Acute ?Assessment and Plan: Plan as detailed above. (5) Hypoxia: ?Code(s): R09.02 - Hypoxemia ?Status:?Acute ?Assessment and Plan: SpO2 was 88% on room air on EMS arrival and he is currently on 2 L. Likely related to pneumonia. Aspiration and PE seem unlikely. Wean as tolerated. (6) Left lower lobe pneumonia: ?Code(s): J18.9 - Pneumonia, unspecified organism ?Status:?Acute ?Assessment and Plan: Continue cefepime and azithromycin. Attempt sputum for culture.? Check pneumococcal and Legionella urinary antigens as well as mycoplasma IgM. (7) Multiple sclerosis: ?Code(s): G35 - Multiple sclerosis ?Status:?Acute ?Assessment and Plan: Primary progressive. Recently prescribed methotrexate however patient declined due to side effect profile. History of cardiac arrest due to ventricular arrhythmia Status post AICD Denies AICD discharge recently Subjective Date/time seen: 06/21/23 09:07 Interval history: I saw and exam patient today, patient feels better today, cloudy urine drained out, patient denies shortness breath, chest pain, abdomen pain. Patient above Exam Narrative: General: Moderately ill-appearing male in the semi-Sanches position in bed. Weight: 63.5 kg. BMI: 19.0. HEENT: PERRL, EOMI. Sclera anicteric. Tacky mucous membranes. Neck: Supple. Respiratory: Mildly tachypneic. Currently on 2 L nasal cannula. Coarse lung sounds at the bases. Cardiovascular: Tachycardic with normal S1-S2. Gastrointestinal: Abdomen is soft, nontender, and nondistended with positive bowel sounds. G-tube and colostomy and suprapubic site are clean and dry. Skin: Warm and dry. No rash or lesions on limited exam. Extremities: No cyanosis, clu
[2023-06-21] MEDS: DEXTROSE 5%/LACTATED RINGERS 1,000 ML 125 ML IV CONT ×2 (09:26→18:42)
[2023-06-21] MEDS: MULTIVITAMINS /C LUTEIN (CENTRUM SILVER) TABLET *BKC 1 TAB PO (09:29)
[2023-06-21] MEDS: LORATADINE 10 MG TABLET FEED TUBE (09:29)
[2023-06-21] MEDS: ASPIRIN 81 MG CHEWABLE TABLET FEED TUBE (09:29)
[2023-06-21] MEDS: ATORVASTATIN 40 MG TABLET FEED TUBE (09:29)
[2023-06-21] MEDS: GABAPENTIN 300 MG CAPSULE FEED TUBE ×3 (09:29→18:42)
[2023-06-21] MEDS: MIRTAZAPINE 7.5 MG TABLET FEED TUBE (09:29)
[2023-06-21] MEDS: BACLOFEN 10 MG TABLET 20 MG FEED TUBE ×3 (09:29→18:42)
[2023-06-21] MEDS: FERROUS SULFATE 325 MG TABLET DR BY MOUTH (09:29)
[2023-06-21] MEDS: METOPROLOL TARTRATE 12.5 MG TABLET FEED TUBE ×2 (09:29→20:06)
[2023-06-21] MEDS: ASCORBIC ACID 500 MG TABLET FEED TUBE ×2 (09:29→20:06)
[2023-06-21 09:51] LABS: Basophils Percent Auto 0.1 % (0.2-1.2); Eosinophils Absolute Auto 0.2 K/mm3 (0-0.3); Eosinophils Percent Auto 2.2 % (0-4.4); Hematocrit 38.1 % (42.0-52.0); Immature Granulocyte Absolute 0.02 K/mm3 (0.00-0.031); Immature Granulocyte Percent A 0.3 % (0-0.5); Immature Platelet Fraction Pct 6.9 % (0.9-11.2); Lymphocytes Absolute Auto 1.09 K/mm3 (0.9-3.2); Lymphocytes Percent Auto 16.2 % (18.3-44.2); Mean Corpuscular HGB Conc 31.5 g/dl (32-36); Mean Corpuscular Hemoglobin 29.4 pg (26-34); Mean Corpuscular Volume 93.4 fl (80-100); Mean Platelet Volume 11.5 fl (7.4-10.4); Monocytes Absolute Auto 0.6 K/mm3 (0.1-0.6); Monocytes Percent Auto 8.8 % (2.6-8.5); Neutrophils Absolute Auto 4.9 K/mm3 (1.3-6.7); Neutrophils Percent Auto 72.4 % (45.5-73.1); Platelet Count Result 98 k/mm3 (150-375); Red Blood Count 4.08 M/mm3 (4.6-6.20); Red Cell Distribution Width 14.2 % (11.5-14.5); White Blood Count 6.7 K/mm3 (4.5-10.0)
[2023-06-21 10:01] LABS: Alanine Aminotransferase 27 U/L (6-50); Albumin Level 3.2 g/dL (3.5-5.1); Alkaline Phosphatase 90 U/L (38-126); Anion Gap 6 mmol/L (8-16); Aspartate Amino Transferase 28 U/L (17-59); Bilirubin,Total 0.5 mg/dL (0.2-1.3); Blood Urea Nitrogen 8 mg/dL (9-20); Carbon Dioxide 26 mmol/L (22-30); Chloride 107 mmol/L (98-107); Estimated CRCL calculation 157 ml/min; Estimated Glomerular Filt Rate > 60; Glucose 117 mg/dL (65-110); Potassium 3.1 mmol/L (3.4-5.0); Sodium 139 mmol/L (137-145)
[2023-06-21] MEDS: CEFEPIME 2 GM/NS 50 ML 2 GM/50 ML BAG IVPB (10:01)
--- NOTE | 2023-06-21 10:05 | WPDUROPN2 ---
Progress Note: A&P Assessment and Plan (1) Bilateral ureteral calculi: Code(s): N20.1 - Calculus of ureter Status: Acute Assessment and Plan: s/p bilateral stent 06/19/23 - condition improving -continue abx per primary and tailor to cultures - will need outpatient management of stones with Dr. Wilson after resolution of infection (2) Sepsis: Qualifiers: Severe sepsis acute organ dysfunction type: critical illness myopathy Code(s): A41.9 - Sepsis, unspecified organism Status: Acute Subjective Subjective Date/Time Seen: 06/21/23 10:05 Interval history: no major urologic events. no fevers overnight GNB in urine, bcx ngtd. BP improved Exam Narrative: lying in bed, NDAD Resp: Effort & Inspection: normal respiratory effort Cardio: Rate: regular rate Urinary Catheter: Urinary Catheter: patent and draining (SP Tube) Objective Data Vital Signs Vital Signs: Vital Signs - 24 hr 06/20/23 11:54 06/20/23 12:00 06/20/23 14:30 Temperature 37.2 C Pulse Rate 90 93 90 Respiratory Rate 22 H 20 Blood Pressure 122/70 Pulse Oximetry 100 96 Oxygen Delivery High Flow Therapy with Na Oxygen Flow Rate 40 Fraction of Inspired Oxygen 45 06/20/23 14:30 06/20/23 14:51 06/20/23 15:17 Temperature 36.6 C Pulse Rate 90 89 88 Respiratory Rate 20 20 20 Blood Pressure 130/74 Pulse Oximetry 100 Oxygen Delivery Oxygen Flow Rate Fraction of Inspired Oxygen 06/20/23 16:33 06/20/23 12:00 06/20/23 16:00 Temperature Pulse Rate 88 Respiratory Rate Blood Pressure Pulse Oximetry 95 95 Oxygen Delivery High Flow Therapy with Na High Flow Therapy with Na Oxygen Flow Rate 40 40 Fraction of Inspired Oxygen 45 45 06/20/23 16:00 06/20/23 18:00 06/20/23 20:19 Temperature Pulse Rate 92 88 88 Respiratory Rate Blood Pressure Pulse Oximetry Oxygen Delivery Oxygen Flow Rate Fraction of Inspired Oxygen 06/20/23 20:31 06/20/23 20:00 06/20/23 21:25 Temperature 37.3 C Pulse Rate 85 86 Respiratory Rate 22 H 20 Blood Pressure 113/72 Pulse Oximetry 100 97 Oxygen Delivery High Flow Therapy with Na Oxygen Flow Rate 40 Fraction of Inspired Oxygen 45 06/20/23 21:34 06/20/23 21:41 06/20/23 20:00 Temperature Pulse Rate 86 86 82 Respiratory Rate 20 Blood Pressure Pulse Oximetry 100 Oxygen Delivery High Flow Therapy with Na Oxygen Flow Rate 40 Fraction of Inspired Oxygen 45 06/20/23 22:00 06/20/23 22:38 06/20/23 23:23 Temperature 37.3 C Pulse Rate 86 85 Respiratory Rate 22 H Blood Pressure 108/66 Pulse Oximetry 100 99 Oxygen Delivery High Flow Therapy with Na Oxygen Flow Rate 35 Fraction of Inspired Oxygen 40 06/21/23 00:00 06/20/23 22:10 06/21/23 00:00 Temperature Pulse Rate 89 76 Respiratory Rate Blood Pressure Pulse Oximetry 96 99 Oxygen Delivery High Flow Therapy with Na High Flow Therapy with Na Oxygen Flow Rate 35 35 Fraction of Inspired Oxygen 40 40 06/21/23 02:00 06/21/23 02:00 06/21/23 02:00 Temperature Pulse Rate 70 74 86 Respiratory Rate 20 Blood Pressure Pulse Oximetry 100 Oxygen Delivery High Flow Therapy with Na Oxygen Flow Rate 35 Fraction of Inspired Oxygen 40 06/21/23 02:10 06/21/23 04:00 06/21/23 04:00 Temperature Pulse Rate 81 75 Respiratory Rate 20 Blood Pressure Pulse Oximetry 100 Oxygen Delivery High Flow Therapy with Na Oxygen Flow Rate 35 Fraction of Inspired Oxygen 40 06/21/23 04:28 06/21/23 02:45 06/21/23 06:00 Temperature 37.3 C Pulse Rate 73 84 98 Respiratory Rate 20 Blood Pressure 102/55 L Pulse Oximetry 99 100 Oxygen Delivery High Flow Therapy with Na Oxygen Flow Rate 30 Fraction of Inspired Oxygen 30 06/21/23 08:00 06/21/23 09:25 06/21/23 09:25 Temperature 36.3 C L Pulse Rate 70 83 Respiratory Rate 16 20 Blood Pres
[2023-06-21] MEDS: CHOLECALCIFEROL 1,000 UNITS TABLET 1000 UNITS FEED TUBE (13:14)
[2023-06-21] MEDS: CYANOCOBALAMIN 1,000 MCG TABLET 1000 MCG FEED TUBE (13:14)
[2023-06-21] MEDS: AZITHROMYCIN 500 MG/NS 250 ML 500 MG/250 ML BAG 250 MG IVPB (22:50)
[2023-06-22] VITALS (28 sets, daily range): BP systolic 101–123; BP diastolic 56–73; PULSE 62–84; RESP 16–20; TEMP 36.7–37.1; O2SAT 97–100; BMI 24.0
[2023-06-22] MEDS: CEFEPIME 2 GM/NS 50 ML 2 GM/50 ML BAG IVPB ×3 (00:15→23:18)
[2023-06-22] MEDS: LEVALBUTEROL NEB 1.25 MG/3 ML 0.63 MG INHALATION ×4 (01:30→20:35)
[2023-06-22] MEDS: IPRATROPIUM BR 0.02% INH SOLN 0.5 MG/2.5 ML VIAL INHALATION ×4 (01:30→20:35)
[2023-06-22] MEDS: ACETYLCYSTEINE 20% INHAL SOLN 800 MG/4 ML VIAL 200 MG INHALATION ×4 (01:30→20:35)
[2023-06-22] MEDS: DEXTROSE 5%/LACTATED RINGERS 1,000 ML 125 ML IV CONT (04:37)
[2023-06-22 06:20] LABS: Basophils Percent Auto 0.2 % (0.2-1.2); Eosinophils Absolute Auto 0.2 K/mm3 (0-0.3); Eosinophils Percent Auto 4.7 % (0-4.4); Hematocrit 34.2 % (42.0-52.0); Hemoglobin 10.8 g/dL (14.0-18.0); Immature Granulocyte Absolute 0.01 K/mm3 (0.00-0.031); Immature Granulocyte Percent A 0.2 % (0-0.5); Immature Platelet Fraction Pct 7.1 % (0.9-11.2); Lymphocytes Absolute Auto 1.16 K/mm3 (0.9-3.2); Lymphocytes Percent Auto 22.5 % (18.3-44.2); Mean Corpuscular HGB Conc 31.6 g/dl (32-36); Mean Corpuscular Hemoglobin 29.3 pg (26-34); Mean Corpuscular Volume 92.9 fl (80-100); Mean Platelet Volume 11.8 fl (7.4-10.4); Monocytes Absolute Auto 0.5 K/mm3 (0.1-0.6); Monocytes Percent Auto 8.7 % (2.6-8.5); Neutrophils Absolute Auto 3.3 K/mm3 (1.3-6.7); Neutrophils Percent Auto 63.7 % (45.5-73.1); Platelet Count Result 92 k/mm3 (150-375); Red Blood Count 3.68 M/mm3 (4.6-6.20); White Blood Count 5.2 K/mm3 (4.5-10.0)
[2023-06-22 06:34] LABS: Alanine Aminotransferase 31 U/L (6-50); Albumin Level 2.8 g/dL (3.5-5.1); Alkaline Phosphatase 82 U/L (38-126); Anion Gap 4 mmol/L (8-16); Aspartate Amino Transferase 26 U/L (17-59); Bilirubin,Total 0.5 mg/dL (0.2-1.3); Blood Urea Nitrogen 8 mg/dL (9-20); Calcium 7.7 mg/dL (8.4-10.2); Carbon Dioxide 26 mmol/L (22-30); Chloride 107 mmol/L (98-107); Estimated CRCL calculation 157 ml/min; Estimated Glomerular Filt Rate > 60; Glucose 110 mg/dL (65-110); Potassium 3.2 mmol/L (3.4-5.0); Sodium 137 mmol/L (137-145)
[2023-06-22] MEDS: ATORVASTATIN 40 MG TABLET FEED TUBE (08:14)
[2023-06-22] MEDS: BACLOFEN 10 MG TABLET 20 MG FEED TUBE ×3 (08:14→18:01)
[2023-06-22] MEDS: ASCORBIC ACID 500 MG TABLET FEED TUBE ×2 (08:14→20:54)
[2023-06-22] MEDS: FERROUS SULFATE 325 MG TABLET DR BY MOUTH (08:14)
[2023-06-22] MEDS: ASPIRIN 81 MG CHEWABLE TABLET FEED TUBE (08:14)
[2023-06-22] MEDS: GABAPENTIN 300 MG CAPSULE FEED TUBE ×3 (08:14→18:01)
[2023-06-22] MEDS: MULTIVITAMINS /C LUTEIN (CENTRUM SILVER) TABLET *BKC 1 TAB PO (08:14)
[2023-06-22] MEDS: MIRTAZAPINE 7.5 MG TABLET FEED TUBE (08:15)
[2023-06-22] MEDS: LORATADINE 10 MG TABLET FEED TUBE (08:15)
[2023-06-22] MEDS: METOPROLOL TARTRATE 12.5 MG TABLET FEED TUBE ×2 (08:15→20:54)
[2023-06-22] MEDS: POTASSIUM CHLORIDE INJ 40 MEQ in SODIUM CHLORIDE 0.9% IV 500 ML 130 MEQ IVPB (09:32)
[2023-06-22] MEDS: POTASSIUM CHLORIDE 20 MEQ PACKET (FOR LIQUID) 40 MEQ FEED TUBE (09:33)
--- NOTE | 2023-06-22 10:12 | PM.IMPN ---
Progress Note: A&P Assessment and Plan (1) Sepsis: Qualifiers: Severe sepsis acute organ dysfunction type: critical illness myopathy Code(s): A41.9 - Sepsis, unspecified organism Status: Acute (2) Urinary tract infection: Code(s): N39.0 - Urinary tract infection, site not specified Status: Acute (3) Bilateral ureteral calculi: Code(s): N20.1 - Calculus of ureter Status: Acute (4) Bilateral hydronephrosis: Code(s): N13.30 - Unspecified hydronephrosis Status: Acute (5) Hypoxia: Code(s): R09.02 - Hypoxemia Status: Acute (6) Left lower lobe pneumonia: Code(s): J18.9 - Pneumonia, unspecified organism Status: Acute (7) Multiple sclerosis: Code(s): G35 - Multiple sclerosis Status: Acute (8) Acute UTI: Code(s): N39.0 - Urinary tract infection, site not specified Status: Acute (9) Pneumonia: Code(s): J18.9 - Pneumonia, unspecified organism Status: Acute Plan (1) Sepsis: ?Code(s): A41.9 - Sepsis, unspecified organism ?Status:?Acute ?Assessment and Plan: SOFA score is 2 (hypotension, thrombocytopenia). Blood pressures have improved with IV fluids. Secondary to urinary tract infection and pneumonia. Blood, urine, and sputum cultures ordered. 06/22, urine culture grows Pseudomonas aeruginosa susceptible to cefepime, blood culture no growth so far, patient has no fever over the night, blood pressure stable. Continue cefepime IV (2) Urinary tract infection: ?Code(s): N39.0 - Urinary tract infection, site not specified ?Status:?Acute ?Assessment and Plan: Patient received a dose of levofloxacin in the emergency department. Broaden coverage to cefepime, urine culture grows Pseudomonas aeruginosa, susceptible to cefepime I discussed the case with pharmacist, patient needs at least 10 day cefepime in the case, complicated UTI and sepsi Cefepime was started June 19 (3) Bilateral ureteral calculi: ?Code(s): N20.1 - Calculus of ureter ?Status:?Acute ?Assessment and Plan: Status post cystoscopy with role stent placement and exchange of suprapubic tube per Dr. Bassett (urology). Per Dr. Bassett, he needs outpatient management of stones with Dr. Wilson after resolution of infection (4) Bilateral hydronephrosis: ?Code(s): N13.30 - Unspecified hydronephrosis ?Status:?Acute ?Assessment and Plan: Plan as detailed above. (5) Hypoxia: ?Code(s): R09.02 - Hypoxemia ?Status:?Acute ?Assessment and Plan: SpO2 was 88% on room air on EMS arrival and he is currently on 2 L. Likely related to pneumonia. Aspiration and PE seem unlikely. Wean as tolerated. (6) Left lower lobe pneumonia: ?Code(s): J18.9 - Pneumonia, unspecified organism ?Status:?Acute ?Assessment and Plan: Continue cefepime and azithromycin. Attempt sputum for culture.? Check pneumococcal and Legionella urinary antigens as well as mycoplasma IgM. (7) Multiple sclerosis: ?Code(s): G35 - Multiple sclerosis ?Status:?Acute ?Assessment and Plan: Primary progressive. Recently prescribed methotrexate however patient declined due to side effect profile. History of cardiac arrest due to ventricular arrhythmia Status post AICD Denies AICD discharge recently Subjective Date/time seen: 06/22/23 10:12 Interval history: I saw and exam patient today, patient feels better today, cloudy urine drained out, patient denies shortness breath, chest pain, abdomen pain. Patient above Exam Narrative: General: Moderately ill-appearing male in the semi-Sanches position in bed. Weight: 63.5 kg. BMI: 19.0. HEENT: PERRL, EOMI. Sclera anicteric. Tacky mucous membranes. Neck: Supple. Respiratory: Mildly tachypneic. Currently on 2 L nasal cannula. Coarse lung sounds at the bases. Cardiovascular: Tachycardic with roxie
[2023-06-22] MEDS: CYANOCOBALAMIN 1,000 MCG TABLET 1000 MCG FEED TUBE (12:14)
[2023-06-22] MEDS: CHOLECALCIFEROL 1,000 UNITS TABLET 1000 UNITS FEED TUBE (12:15)
--- NOTE | 2023-06-22 14:09 | PC.NURSE ---
This patient, Masoud Juan, was transferred to [[facility] ] on 06/22/23 at 1357. Personal belongings sent with patient. Report given to [ Nancy]. Appropriate documentation sent with patient.
[2023-06-22] MEDS: LIDOCAINE HCL 1% PF INJ 5 ML VIAL INFILTRATE (14:45)
--- NOTE | 2023-06-22 16:08 | WPDUROPN2 ---
Progress Note: A&P Assessment and Plan (1) Sepsis: Qualifiers: Severe sepsis acute organ dysfunction type: critical illness myopathy Code(s): A41.9 - Sepsis, unspecified organism Status: Acute Assessment and Plan: Urine growing Pseudomonas, blood cultures pending. Continue IV antibiotics. F/u in one week to repeat urine cultures then plan to do Cystoscopy with bilateral ureteral stones and stent exchanges when infection resolves. (2) Bilateral hydronephrosis: Code(s): N13.30 - Unspecified hydronephrosis Status: Acute (3) Bilateral ureteral calculi: Code(s): N20.1 - Calculus of ureter Status: Acute Subjective Subjective Date/Time Seen: 06/22/23 16:08 Post Op day: 3 Interval history: S/P Cystoscopy Bilateral ureteral stent placement Exchange of suprapubic tube. Pt. doing well, afebrile, WBC and creatinine are normal. Pt will need a bilateral stone removal and stent exchange at some point when he is more stable. Review of Systems Cardiovascular: Cardiovascular: Denies chest pain Respiratory: Respiratory: Reports no additional respiratory complaints Genitourinary: Genitourinary: Denies hematuria, Denies genital pain, Denies dysuria, Denies flank pain, Denies urinary frequency, Denies urinary hesitancy, Denies urinary incontinence and Denies urinary urgency Exam Resp: Effort & Inspection: normal respiratory effort Cardio: Rate: regular rate GI: GI Palp: Yes Soft to palpation and No Tenderness to palpation present (GI) : General: Yes no CVA tenderness Urinary Catheter: Urinary Catheter: patent and draining and urine dark Extrem: Right lower extremity: no edema Left lower extremity: no edema Objective Data Vital Signs Vital Signs: Vital Signs - 24 hr 06/21/23 18:00 06/21/23 20:06 06/21/23 20:31 Temperature Pulse Rate 70 76 Respiratory Rate Blood Pressure Pulse Oximetry 100 Oxygen Delivery High Flow Therapy with Na Oxygen Flow Rate 30 Fraction of Inspired Oxygen 30 06/21/23 19:45 06/21/23 20:32 06/21/23 20:35 Temperature 97.9 F Pulse Rate 82 76 76 Respiratory Rate 20 20 20 Blood Pressure 113/63 Pulse Oximetry 100 Oxygen Delivery Oxygen Flow Rate Fraction of Inspired Oxygen 06/21/23 20:00 06/21/23 20:00 06/21/23 22:48 Temperature Pulse Rate 78 Respiratory Rate Blood Pressure Pulse Oximetry 100 100 Oxygen Delivery High Flow Therapy with Na High Flow Therapy with Na Oxygen Flow Rate 30 30 Fraction of Inspired Oxygen 30 30 06/21/23 22:00 06/21/23 23:37 06/22/23 00:00 Temperature 98.2 F Pulse Rate 89 67 66 Respiratory Rate 20 Blood Pressure 106/70 Pulse Oximetry 100 Oxygen Delivery Oxygen Flow Rate Fraction of Inspired Oxygen 06/22/23 00:00 06/22/23 01:30 06/22/23 02:12 Temperature Pulse Rate 74 Respiratory Rate 19 Blood Pressure Pulse Oximetry 100 100 Oxygen Delivery High Flow Therapy with Na High Flow Therapy with Na Oxygen Flow Rate 30 30 Fraction of Inspired Oxygen 30 30 06/22/23 01:55 06/22/23 02:00 06/22/23 03:34 Temperature 98.3 F Pulse Rate 75 65 62 Respiratory Rate 19 18 Blood Pressure 102/66 Pulse Oximetry 98 Oxygen Delivery Oxygen Flow Rate Fraction of Inspired Oxygen 06/22/23 04:47 06/22/23 04:52 06/22/23 07:29 Temperature 98.0 F Pulse Rate 70 72 Respiratory Rate 18 Blood Pressure 108/67 Pulse Oximetry 99 98 Oxygen Delivery High Flow Therapy with Na Oxygen Flow Rate 30 Fraction of Inspired Oxygen 30 06/22/23 08:15 06/22/23 09:05 06/22/23 09:32 Temperature Pulse Rate 72 76 79 Respiratory Rate 18 18 Blood Pressure Pulse Oximetry Oxygen Delivery Oxygen Flow Rate Fraction of Inspired Oxygen 06/22/23 09:32 06/22/23 08:00 06/22/23 10:00 Temperature Pulse Rate 70 77 Respiratory Rate Blood Pressure Pulse Oximetry 99 O
[2023-06-22] MEDS: SALINE LOCK FLUSH 10 ML IV PUSH (20:55)
[2023-06-22] MEDS: ALTEPLASE 2 MG VIAL (CATHFLO) IV PUSH (23:14)
[2023-06-23] VITALS (9 sets, daily range): BP systolic 108–115; BP diastolic 67–76; PULSE 70–82; RESP 16–18; TEMP 36.3–36.9; O2SAT 95–97
[2023-06-23] MEDS: LEVALBUTEROL NEB 1.25 MG/3 ML 0.63 MG INHALATION ×2 (02:34→08:46)
[2023-06-23] MEDS: ACETYLCYSTEINE 20% INHAL SOLN 800 MG/4 ML VIAL 200 MG INHALATION ×2 (02:34→08:47)
[2023-06-23] MEDS: IPRATROPIUM BR 0.02% INH SOLN 0.5 MG/2.5 ML VIAL INHALATION ×2 (02:34→08:47)
[2023-06-23 05:21] LABS: Basophils Percent Auto 0.3 % (0.2-1.2); Eosinophils Absolute Auto 0.3 K/mm3 (0-0.3); Eosinophils Percent Auto 4.5 % (0-4.4); Hematocrit 34.8 % (42.0-52.0); Immature Granulocyte Absolute 0.02 K/mm3 (0.00-0.031); Immature Granulocyte Percent A 0.3 % (0-0.5); Immature Platelet Fraction Pct 5.8 % (0.9-11.2); Lymphocytes Percent Auto 20.1 % (18.3-44.2); Mean Corpuscular HGB Conc 31.6 g/dl (32-36); Mean Corpuscular Hemoglobin 29.3 pg (26-34); Mean Corpuscular Volume 92.8 fl (80-100); Mean Platelet Volume 11.6 fl (7.4-10.4); Monocytes Absolute Auto 0.4 K/mm3 (0.1-0.6); Monocytes Percent Auto 6.2 % (2.6-8.5); Neutrophils Absolute Auto 4.1 K/mm3 (1.3-6.7); Neutrophils Percent Auto 68.6 % (45.5-73.1); Platelet Count Result 110 k/mm3 (150-375); Red Blood Count 3.75 M/mm3 (4.6-6.20); Red Cell Distribution Width 13.7 % (11.5-14.5)
[2023-06-23 05:37] LABS: Alanine Aminotransferase 41 U/L (6-50); Albumin Level 2.9 g/dL (3.5-5.1); Alkaline Phosphatase 94 U/L (38-126); Anion Gap 5 mmol/L (8-16); Aspartate Amino Transferase 30 U/L (17-59); Bilirubin,Total 0.6 mg/dL (0.2-1.3); Blood Urea Nitrogen 8 mg/dL (9-20); Calcium 8.1 mg/dL (8.4-10.2); Carbon Dioxide 26 mmol/L (22-30); Chloride 106 mmol/L (98-107); Estimated CRCL calculation 157 ml/min; Estimated Glomerular Filt Rate > 60; Glucose 96 mg/dL (65-110); Potassium 3.7 mmol/L (3.4-5.0); Sodium 137 mmol/L (137-145)
[2023-06-23] MEDS: SALINE LOCK FLUSH 10 ML IV PUSH (06:15)
--- NOTE | 2023-06-23 08:07 | P.CDI_ITS ---
CDI Query Clarification Request Urine Culture from 06/19 grew > 100,000 pseudomonas aeruginosa. Chronic suprapubic catheter documented. Patient started on Cefepime 2Gm IV Q 12 hours Clarification request - UTI has been documented, chronic suprapubic catheter documented. Please clarify if UTI is: * due to/associated with chronic suprapubic catheter * not due to/associated with chronic suprapubic catheter * unable to determine <Rina Beverly RN - Last Filed: 06/23/23 08:12> Urine Culture from 06/19 grew > 100,000 pseudomonas aeruginosa. Chronic suprapubic catheter documented. Patient started on Cefepime 2Gm IV Q 12 hours Clarification request - UTI has been documented, chronic suprapubic catheter documented. Please clarify if UTI is: * due to/associated with chronic suprapubic catheter * not due to/associated with chronic suprapubic catheter * unable to determine The patient has a complicated UTI, associated with suprapubic catheter and also kidney stone <Alexander Ponce MD - Last Filed: 06/23/23 09:06>
--- NOTE | 2023-06-23 09:06 | PM.IMPN ---
Progress Note: A&P Assessment and Plan (1) Sepsis: Qualifiers: Severe sepsis acute organ dysfunction type: critical illness myopathy Code(s): A41.9 - Sepsis, unspecified organism Status: Acute (2) Urinary tract infection: Code(s): N39.0 - Urinary tract infection, site not specified Status: Acute (3) Bilateral ureteral calculi: Code(s): N20.1 - Calculus of ureter Status: Acute (4) Bilateral hydronephrosis: Code(s): N13.30 - Unspecified hydronephrosis Status: Acute (5) Hypoxia: Code(s): R09.02 - Hypoxemia Status: Acute (6) Left lower lobe pneumonia: Code(s): J18.9 - Pneumonia, unspecified organism Status: Acute (7) Multiple sclerosis: Code(s): G35 - Multiple sclerosis Status: Acute (8) Acute UTI: Code(s): N39.0 - Urinary tract infection, site not specified Status: Acute (9) Pneumonia: Code(s): J18.9 - Pneumonia, unspecified organism Status: Acute Plan (1) Sepsis: ?Code(s): A41.9 - Sepsis, unspecified organism ?Status:?Acute ?Assessment and Plan: SOFA score is 2 (hypotension, thrombocytopenia). Blood pressures have improved with IV fluids. Secondary to urinary tract infection and pneumonia. Blood, urine, and sputum cultures ordered. 06/22, urine culture grows Pseudomonas aeruginosa susceptible to cefepime, blood culture no growth so far, patient has no fever over the night, blood pressure stable. Continue cefepime IV (2) Urinary tract infection: ?Code(s): N39.0 - Urinary tract infection, site not specified ?Status:?Acute ?Assessment and Plan: Patient received a dose of levofloxacin in the emergency department. Broaden coverage to cefepime, urine culture grows Pseudomonas aeruginosa, susceptible to cefepime I discussed the case with pharmacist, patient needs at least 10 day cefepime in the case, complicated UTI and sepsi Cefepime was started June 19, will continue cefepime until next Thursday patient will be discharged home today with home health, and continue IV antibiotics and home, midline is placed. (3) Bilateral ureteral calculi: ?Code(s): N20.1 - Calculus of ureter ?Status:?Acute ?Assessment and Plan: Status post cystoscopy with role stent placement and exchange of suprapubic tube per Dr. Bassett (urology). Per Dr. Bassett, he needs outpatient management of stones with Dr. Wilson after resolution of infection (4) Bilateral hydronephrosis: ?Code(s): N13.30 - Unspecified hydronephrosis ?Status:?Acute ?Assessment and Plan: Plan as detailed above. (5) Hypoxia: ?Code(s): R09.02 - Hypoxemia ?Status:?Acute ?Assessment and Plan: SpO2 was 88% on room air on EMS arrival Likely related to pneumonia. Aspiration and PE seem unlikely. Wean as tolerated. now pox 97 on RA (6) Left lower lobe pneumonia: ?Code(s): J18.9 - Pneumonia, unspecified organism ?Status:?Acute ?Assessment and Plan: Continue cefepime and azithromycin. Attempt sputum for culture.? FLU AND COVID NEGATIVE (7) Multiple sclerosis: ?Code(s): G35 - Multiple sclerosis ?Status:?Acute ?Assessment and Plan: Primary progressive. Recently prescribed methotrexate however patient declined due to side effect profile. 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 Patient denies nausea vomiting, suprapubic pain, patient is afebrile, blood pressure stable, no new issue even over the night. Urine is drained out from suprapubic catheter, urine is clear Exam Narrative: General: Moderately ill-appearing male in the semi-Sanches position in bed. Weight: 63.5 kg. BMI: 19.0. HEENT: PERRL, EOMI. Sclera anicteric. Tacky mucous memb
[2023-06-23] MEDS: MULTIVITAMINS /C LUTEIN (CENTRUM SILVER) TABLET *BKC 1 TAB PO (10:00)
[2023-06-23] MEDS: ASCORBIC ACID 500 MG TABLET FEED TUBE (10:00)
[2023-06-23] MEDS: MIRTAZAPINE 7.5 MG TABLET FEED TUBE (10:00)
[2023-06-23] MEDS: ASPIRIN 81 MG CHEWABLE TABLET FEED TUBE (10:00)
[2023-06-23] MEDS: GABAPENTIN 300 MG CAPSULE FEED TUBE ×2 (10:00→12:52)
[2023-06-23] MEDS: FERROUS SULFATE 325 MG TABLET DR BY MOUTH (10:00)
[2023-06-23] MEDS: ATORVASTATIN 40 MG TABLET FEED TUBE (10:01)
[2023-06-23] MEDS: LORATADINE 10 MG TABLET FEED TUBE (10:01)
[2023-06-23] MEDS: BACLOFEN 10 MG TABLET 20 MG FEED TUBE ×2 (10:01→12:52)
[2023-06-23] MEDS: METOPROLOL TARTRATE 12.5 MG TABLET FEED TUBE (10:01)
--- NOTE | 2023-06-23 10:53 | PCNFU ---
Nutrition Follow-Up Complete: Need for alternative nutrition support as evidenced by tube feeding for sole source of nutrition. Jevity 1.5 240ml bolus QID = 1440kcals, 61g protein total per day Goal:Wt to remain stable Pt current nutrition is Jevity 1.5 240ml QID per home regimen. Nutrition recommendation: continue with current plan of care Last recorded weight is 77.6 kg. Bowel Motility: +BM 06/21 Labs Reviewed: Hgb:11, HCT:34.8, Alb:2.9, BUN:8, Cr:0.5 Meds Noted: Lactated ringers, remeron, zofran Skin: no pressure injuries Additional Notes: Pt continues on a the same tube feeding as home regimen. tolerating well. Monitor tube feeding, tolerance, wt, labs. Follow up every Thursday and Thursday.
[2023-06-23] MEDS: CEFEPIME 2 GM/NS 50 ML 2 GM/50 ML BAG IVPB (11:42)
--- NOTE | 2023-06-23 12:22 | PM.DS ---
DS: Admitting Diagnosis Discharge Date 06/23/23 Admitting Diagnosis (1) Sepsis: ?Qualifiers: ?Severe sepsis acute organ dysfunction type:?critical illness myopathy ?Code(s): A41.9 - Sepsis, unspecified organism ?Status:?Acute (2) Urinary tract infection: ?Code(s): N39.0 - Urinary tract infection, site not specified ?Status:?Acute (3) Bilateral ureteral calculi: ?Code(s): N20.1 - Calculus of ureter ?Status:?Acute (4) Bilateral hydronephrosis: ?Code(s): N13.30 - Unspecified hydronephrosis ?Status:?Acute (5) Hypoxia: ?Code(s): R09.02 - Hypoxemia ?Status:?Acute (6) Left lower lobe pneumonia: ?Code(s): J18.9 - Pneumonia, unspecified organism ?Status:?Acute (7) Multiple sclerosis: ?Code(s): G35 - Multiple sclerosis ?Status:?Acute (8) Acute UTI: ?Code(s): N39.0 - Urinary tract infection, site not specified ?Status:?Acute (9) Pneumonia: ?Code(s): J18.9 - Pneumonia, unspecified organism ?Status:?Acute DS: Discharge Diagnosis Discharge Diagnosis (1) Sepsis: Qualifiers: Severe sepsis acute organ dysfunction type: critical illness myopathy Code(s): A41.9 - Sepsis, unspecified organism Status: Acute (2) Urinary tract infection: Code(s): N39.0 - Urinary tract infection, site not specified Status: Acute (3) Bilateral ureteral calculi: Code(s): N20.1 - Calculus of ureter Status: Acute (4) Bilateral hydronephrosis: Code(s): N13.30 - Unspecified hydronephrosis Status: Acute (5) Hypoxia: Code(s): R09.02 - Hypoxemia Status: Acute (6) Left lower lobe pneumonia: Code(s): J18.9 - Pneumonia, unspecified organism Status: Acute (7) Multiple sclerosis: Code(s): G35 - Multiple sclerosis Status: Acute (8) Acute UTI: Code(s): N39.0 - Urinary tract infection, site not specified Status: Acute (9) Pneumonia: Code(s): J18.9 - Pneumonia, unspecified organism Status: Acute DS: Summary Hospital Course Hospital Course: PER GET'S H&P, this is a 48-year-old male with history of primary progressive multiple sclerosis, kidney stones, MS, and cardiac arrest status post defibrillator insertion who presented to the emergency department via EMS from home for evaluation of a fever. The patient provides the following history; his parents provide additional information with the patient's permission. He was diagnosed with MS around the age of 31 and he has not been able to walk for the past 10 years. He has limited feeling from the chest down and has a colostomy and suprapubic catheter. He also has a gastrostomy tube and does not really take anything in p.o. aside from occasional chocolate milk and according to the parents he seems to do well with that. He has a very weak cough and they have a cough assist device at home. The last 24 hours or so he has developed a cough and they have noticed that he appears short of breath. He has also developed a fever and they brought him in for evaluation. Temperature was as high as 102.5? F in the ED. Blood pressures were initially in the 90 systolic but have improved with IV fluids. He has been in a sinus tachycardia with rates up into the 120s. Labs were significant for a WBC count of 16.9, platelet 130, sodium 132, creatinine 0.90. Urine showed 3+ leukocyte esterase, greater than 100 wbc's, and 4+ bacteria. He tested negative for influenza, RSV, and COVID. Chest x-ray showed left basilar airspace disease consistent with atelectasis versus pneumonia. CT of the abdomen and pelvis showed bilateral distal ureteral stones with mild bilateral hydronephrosis, bilateral nephrolithiasis, cholelithiasis, and bilateral lower lobe airspace disease which may represent atelectasis and/or pneumonia. In the ED he received IV fluid boluses and levofloxacin. He was taken to OR per Urology and is status post b
[2023-06-23] MEDS: ALTEPLASE 2 MG VIAL (CATHFLO) IV PUSH (12:29)
[2023-06-23] MEDS: CYANOCOBALAMIN 1,000 MCG TABLET 1000 MCG FEED TUBE (12:52)
[2023-06-23] MEDS: CHOLECALCIFEROL 1,000 UNITS TABLET 1000 UNITS FEED TUBE (12:52)
[2023-06-23] MEDS: LIDOCAINE HCL 1% PF INJ 5 ML VIAL INFILTRATE (15:15)
== END 2023-06-23 17:25 | disposition home health service (06) | DRG 659 ==
LOC: ANHED 17:03 → ANHSURGERY 18:38 → ANHIMU 22:23 → ANH3MEDSUR 06-23 02:18 → ANHIMU 06-24 10:47
PROVIDERS: Physician Assistant; Urology; Admitting Provider Internal Medicine; Emergency Provider Emergency Medicine; PCP Internal Medicine; Visit Provider Hospitalist
PROC: 0T788DZ Dilation of Bilateral Ureters with Intraluminal Device, Via Natural or Artificial Opening Endoscopic (ICD-10-PCS; CPT 52352; principal; 2023-06-19 20:30)
DX: T83.510A Infection and inflammatory reaction due to cystostomy catheter, initial encounter (principal); A41.9 Sepsis, unspecified organism; J18.9 Pneumonia, unspecified organism; N13.6 Pyonephrosis; B96.5 Pseudomonas (aeruginosa) (mallei) (pseudomallei) as the cause of diseases classified elsewhere; R09.02 Hypoxemia; G35 Multiple sclerosis; I25.10 Atherosclerotic heart disease of native coronary artery without angina pectoris; I25.2 Old myocardial infarction; Z95.810 Presence of automatic (implantable) cardiac defibrillator; Z93.1 Gastrostomy status; Z93.3 Colostomy status; Z99.3 Dependence on wheelchair; Z20.822 Contact with and (suspected) exposure to COVID-19
CPT/HCPCS: 36415; 36569; 36600; 71045; 74176; 80053; 81001; 82805; 83605; 83735; 83880; 85025; 85027; 85055; 87040; 87077; 87086; 87186; 87637; 94640; 96365; 96366; 99285; A9270; C1769; C2617; G0378; J0456; J0692; J1956; J2250; J2405; J2704; J2997; J3010; J3480; J7030; J7040; J7120; J7121

== ENCOUNTER 2023-06-26 16:40 | Emergency (ER) | payer MEDICARE, MEDICAID, SELFPAY ==
--- NOTE | ~2023-06-26 | CT_ITS ---
EXAMINATION: CT abdomen pelvis wo con DATE: 06/26/2023 22:25 INDICATION: Hematuria TECHNIQUE: Computed tomography (CT) of the abdomen and pelvis was performed without intravenous contr ast. The dose-length product (DLP) was 938.29 mGy-cm. Automated exposure control and iterative recons truction technique were employed. COMPARISON: 06/19/2023 FINDINGS: Minimal dependent atelectasis is present in the lung bases. The heart size is normal. The l iver, spleen, pancreas, and adrenal glands are normal. Stones are present in the nondistended gallbla dder. There is a gastrostomy tube in the stomach. Bilateral internal ureteral stents are in expected position. There is a 10 mm stone in the right renal pelvis adjacent to the coiled portion of the sten t. In addition, there is a 6 mm stone of the right renal pelvis. There is a 4 mm stone adjacent to th e distal aspect of the left internal ureteral stent. A suprapubic catheter is noted. A large volume o f colonic stool is present. There is a colostomy of the left lower quadrant. No pathologically enlar ged abdominal or pelvic lymph nodes are identified. No free intraperitoneal gas or evidence of bowel obstruction. There are changes of the sacrum and coccyx resection. IMPRESSION: 1. Bilateral internal ureteral stent in expected position with stones in the right renal pelvis as we ll as adjacent to the distal aspect of the left internal ureteral stent. Reviewed, dictated and finalized at location F. IMPRESSION: 1. Bilateral internal ureteral stent in expected position with stones in the ri ght renal pelvis as well as adjacent to the distal aspect of the left internal ureteral stent.
[2023-06-26 16:54] VITALS: BP 121/69; PULSE 97; RESP 20; TEMP 36.4; O2SAT 99
[2023-06-26 23:16] LABS: Basophils Absolute Auto 0.1 K/mm3 (0.0-0.1); Basophils Percent Auto 0.3 % (0.2-1.2); Eosinophils Absolute Auto 0.7 K/mm3 (0-0.3); Eosinophils Percent Auto 4.4 % (0-4.4); Hematocrit 45.8 % (42.0-52.0); Hemoglobin 14.4 g/dL (14.0-18.0); Immature Granulocyte Absolute 0.11 K/mm3 (0.00-0.031); Immature Granulocyte Percent A 0.7 % (0-0.5); Lymphocytes Absolute Auto 2.15 K/mm3 (0.9-3.2); Lymphocytes Percent Auto 14.2 % (18.3-44.2); Mean Corpuscular HGB Conc 31.4 g/dl (32-36); Mean Corpuscular Volume 92.3 fl (80-100); Monocytes Absolute Auto 0.7 K/mm3 (0.1-0.6); Monocytes Percent Auto 4.6 % (2.6-8.5); Neutrophils Absolute Auto 11.4 K/mm3 (1.3-6.7); Neutrophils Percent Auto 75.8 % (45.5-73.1); Platelet Count Result 264 k/mm3 (150-375); Red Blood Count 4.96 M/mm3 (4.6-6.20); White Blood Count 15.1 K/mm3 (4.5-10.0)
[2023-06-26 23:26] LABS: Alanine Aminotransferase 44 U/L (6-50); Albumin Level 4.3 g/dL (3.5-5.1); Alkaline Phosphatase 134 U/L (38-126); Anion Gap 12 mmol/L (8-16); Aspartate Amino Transferase 27 U/L (17-59); Bilirubin,Total 0.6 mg/dL (0.2-1.3); Blood Urea Nitrogen 24 mg/dL (9-20); Calcium 9.6 mg/dL (8.4-10.2); Carbon Dioxide 22 mmol/L (22-30); Chloride 104 mmol/L (98-107); Estimated CRCL calculation 134 ml/min; Estimated Glomerular Filt Rate > 60; Glucose 115 mg/dL (65-110); Magnesium 2.3 mg/dL (1.6-2.3); Potassium 4.6 mmol/L (3.4-5.0); Sodium 138 mmol/L (137-145)
[2023-06-26 23:27] LABS: Lactic Acid Reflex 0.9 mmol/L (0.7-2.0)
[2023-06-26 23:33] LABS: Prothrombin Time 13.2 Seconds (11.1-14.7)
[2023-06-26 23:34] LABS: Partial Thromboplastin Time 28.5 SECONDS (22.3-36.8)
[2023-06-26 23:40] LABS: Appearance Urine Clear (Clear); Bilirubin Urine 3+ (Negative); Blood Urine 3+ (Negative); Glucose Urine UA Negative (Negative); Ketones Urine 1+ mg/dL (Negative); Leukocyte Esterase Ur 3+ LEU/UL (Negative); Nitrate Urine Negative (Negative); Protein Urine 3+ mg/dL (Negative)
[2023-06-26 23:47] LABS: Color Urine Brown (Yellow)
[2023-06-26 23:48] LABS: Add Urine Microscopic? YES; RBC Urine >100 /hpf (0-2); WBC Urine 21-30 /hpf
[2023-06-26 23:49] LABS: Squamous Epithelial Cell Urine Few /hpf (Few)
--- NOTE | 2023-06-27 00:53 | PC.NURSE ---
Per ERP, navarrete catheter placed to urinary meatus. CBI attached to pt's indwelling suprapubic catheter. CBI started and draining appropriately into 4000ml urine bag.
--- NOTE | 2023-06-27 01:50 | PC.NURSE ---
Per ERP, pause CBI to determine uop color at this time.
--- NOTE | 2023-06-27 01:51 | ED.GENADULT ---
HPI - General Adult General Chief complaint: Urogenital-Male Stated complaint: hematuria Time Seen by Provider: 06/26/23 22:15 History of Present Illness HPI narrative: Patient 38-year-old gentleman who presents the emergency department with chief complaint of hematuria. Patient had recent kidney stones and pyelonephritis Has a PICC line and has a suprapubic catheter patient in the last 24 hours has noticed that he has had hematuria that is approximately 12 dark red. The patient has had no fever reports he has been compliant with his antibiotics does still have a renal stents in place reports no pain Related Data Home Medications Medication Instructions Recorded Confirmed ascorbic acid (vitamin C) 1,000 mg 1 g PO DAILY 09/05/19 08/07/22 tablet (Vitamin C) atorvastatin 40 mg tablet 40 mg PO DAILY 09/05/19 08/07/22 baclofen 20 mg tablet 20 mg PO TID 09/05/19 08/07/22 biotin 5 mg tablet 5 mg PO DAILY 09/05/19 08/07/22 cholecalciferol (vitamin D3) 50 50 mcg PO DAILY 09/05/19 08/07/22 mcg (2,000 unit) capsule (Vitamin D3) cyanocobalamin (vitamin B-12) 1,000 mcg PO DAILY 09/05/19 08/07/22 1,000 mcg tablet (Vitamin B-12) fesoterodine 8 mg tablet,extended 8 mg PO DAILY 09/05/19 08/07/22 release 24 hr (Toviaz) gabapentin 300 mg capsule 300 mg PO TID 09/05/19 08/07/22 metoprolol succinate 25 mg 12.5 mg PO DAILY 09/05/19 08/07/22 tablet,extended release 24 hr mirtazapine 7.5 mg tablet 7.5 mg PO HS 09/05/19 08/07/22 aspirin 81 mg tablet,delayed 81 mg PO DAILY 04/02/22 08/07/22 release ascorbic acid (vitamin C) 500 mg 500 mg feeding tube Q12H 06/20/23 06/20/23 tablet aspirin 81 mg tablet,delayed 81 mg feeding tube DAILY 06/20/23 06/20/23 release atorvastatin 40 mg tablet 40 mg feeding tube DAILY 06/20/23 06/20/23 baclofen 20 mg tablet 20 mg feeding tube TID 06/20/23 06/20/23 biotin 1 mg tablet 1 mg feeding tube QNOON 06/20/23 06/20/23 cetirizine 10 mg tablet (Zyrtec) 10 mg feeding tube DAILY 06/20/23 06/20/23 cholecalciferol (vitamin D3) 25 25 mcg feeding tube QNOON 06/20/23 06/20/23 mcg (1,000 unit) tablet cyanocobalamin (vitamin B-12) 1,000 mcg feeding tube QNOON 06/20/23 06/20/23 1,000 mcg tablet ferrous sulfate 325 mg (65 mg 325 mg feeding tube QNOON 06/20/23 06/20/23 iron) tablet (Iron (ferrous sulfate)) fesoterodine 8 mg tablet,extended 8 mg PO DAILY 06/20/23 06/20/23 release 24 hr gabapentin 250 mg/5 mL oral 900 mg feeding tube TID 06/20/23 06/20/23 solution metoprolol tartrate 25 mg tablet 12.5 mg feeding tube Q12H 06/20/23 06/20/23 mirtazapine 7.5 mg tablet 7.5 mg feeding tube DAILY 06/20/23 06/20/23 multivit with minerals-iron 18 1 tablet PO DAILY 06/20/23 06/20/23 mg-folic ac 400 mcg-vit K 25 mcg tablet (Adults Multivitamin) sulfamethoxazole 800 1 tablet feeding tube BID PRN uti 06/20/23 06/20/23 mg-trimethoprim 160 mg tablet Allergies Allergy/AdvReac Type Severity Reaction Status Date / Time Penicillins Allergy Unknown UNKNOWN Verified 06/24/23 07:46 REACTION tape/adhesive AdvReac irrtation Uncoded 06/24/23 07:46 Review of Systems Review of Systems: A 10 system review of systems was completed on the patient and is negative except for what is stated in the HPI. Nursing and ancillary documentation was reviewed. [facility] Past Medical History Medical History CAD (coronary artery disease) Cardiac defibrillator in place CHF (congestive heart failure) Coronary artery disease History of [place] x2, 1 in 2018 and another in 2019. History of gastrostomy tube placement Hyperlipidemia Hypertension Kidney stone Multiple sclerosis Paraplegia Primary chronic progressive multiple sclerosis Patient is wheelchair-bound. Has suprapubic catheter, colostomy, and G-tube. Suprapubic catheter Surgical History Surgical History History of colostomy Histo
[2023-06-27 01:58] VITALS: BP 133/95; PULSE 90; RESP 16; O2SAT 100
--- NOTE | 2023-06-27 02:18 | PC.NURSE ---
Urine appears yellow/light brown in navarrete bag
--- NOTE | 2023-06-27 02:42 | PC.NURSE ---
Placed new drainage bag on suprapubic catheter.
== END 2023-06-27 02:43 | disposition home or self-care (01) ==
PROVIDERS: Emergency Provider Emergency Medicine; PCP Internal Medicine
DX: R31.9 Hematuria, unspecified (principal); I11.0 Hypertensive heart disease with heart failure; I50.9 Heart failure, unspecified; I25.10 Atherosclerotic heart disease of native coronary artery without angina pectoris; I25.2 Old myocardial infarction; E78.5 Hyperlipidemia, unspecified; G35 Multiple sclerosis; G82.20 Paraplegia, unspecified; Z93.1 Gastrostomy status; Z95.810 Presence of automatic (implantable) cardiac defibrillator; Z93.3 Colostomy status; Z99.3 Dependence on wheelchair; F17.210 Nicotine dependence, cigarettes, uncomplicated; Z96.0 Presence of urogenital implants; Z79.82 Long term (current) use of aspirin; Z79.891 Long term (current) use of opiate analgesic
CPT/HCPCS: 36415; 51700; 74176; 80053; 81001; 83605; 83735; 85025; 85610; 85730; 87086; 99284

== ENCOUNTER 2023-07-16 01:42 | Day surgery (SDC) | payer MEDICARE, MEDICAID, SELFPAY ==
--- NOTE | 2023-07-10 08:26 | PM.HPGS ---
History of Present Illness History of Present Illness Consent: Risks, benefits, and alternatives have been discussed and questions answered. Patient agrees to proceed with procedure. 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 As a result he has a history of recurrent urolithiasis. He was recently admitted with a febrile urinary tract infection and bilateral obstructing distal ureteral calculi. Additionally has a very large right renal pelvic calculus. Ureteral stents have been placed. He now presents for cystoscopy with bilateral ureteroscopy with distal stone extraction. He will need right percutaneous nephrolithotomy for the large stone in his right kidney. Review of Systems Cardiovascular: Cardiovascular: Denies chest pain, Denies lightheadedness, Denies palpitations and Denies dyspnea Respiratory: Respiratory: Denies dyspnea Gastrointestinal: Gastrointestinal: Denies diarrhea, Denies nausea and Denies vomiting Genitourinary: Genitourinary: Denies hematuria and Denies dysuria Endocrine: Endocrine: Denies palpitations PMFSH Past Medical History Medical History CAD (coronary artery disease) Cardiac defibrillator in place CHF (congestive heart failure) Coronary artery disease History of [place] x2, 1 in 2018 and another in 2020. History of gastrostomy tube placement Hyperlipidemia Hypertension Kidney stone Multiple sclerosis Paraplegia Primary chronic progressive multiple sclerosis Patient is wheelchair-bound. Has suprapubic catheter, colostomy, and G-tube. Suprapubic catheter Surgical History Surgical History History of colostomy History of gastrostomy tube placement History of implantable cardioverter-defibrillator (ICD) insertion For history of cardiac arrest x2. History of oral surgery History of suprapubic catheter History of ureter stent Family History Family History Grandparent Acute myocardial infarction Cerebrovascular accident Colon cancer Congestive heart failure Diabetes mellitus Sibling Asthma Diabetes mellitus Son Asthma Mother History of blood clots Leukemia Other Chronic obstructive pulmonary disease Congestive heart failure Father Hypertension Grandparent Hypertension Other Family history non-contributory Social History Social History Social History: Surrogate medical decision maker: Masoud and Love Juan, parents. Code status: Full code. Smoking packs per day: 1 Smoking cigarettes per day: 20.0 Years smoked: 30 Smoking pack-years: 30.00 Smoking status: Heavy tobacco smoker Tobacco type: cigarettes Second hand tobacco smoke exposure: Yes Additional smoking assessment comments: 1ppd x 30 years Alcohol intake: never Substance use: never Substance use type: does not use Lack of Transportation: No Lack of Food: Never True Current Housing: I Have Housing Concerned About Future Housing: No Difficulty Paying Gas/Electric Bills: No Difficulty Paying for Meds: No Currently Unemployed: No Education: Trade/Vocational Certificate Difficulty w/ Childcare or Family Care: No Living arrangements: with family Additional living arrangements comments: Lives with parents in [place]. He has 3 grown sons. Spiritual care concerns: No Meds Home Medications and Allergies Home Medications Medication Instructions Recorded Confirmed Type ascorbic acid (vitamin C) 1,000 mg 1 g PO DAILY 09/05/19 08/07/22 History tablet (Vitamin C) atorvastatin 40 mg tablet 40 mg PO DAILY 09/05/19 08/07/22 History baclofen 20 mg tablet 20 mg PO TID 09/05/19 08/07/22 History biotin
[2023-07-13 09:26] VITALS: BMI 23.3
--- NOTE | 2023-07-13 09:33 | PC.NURSE ---
Report to the Outpatient Waiting Room, entrance under the green pavilion located off [facility], at time 1100 on date 07/16/23. Planned Procedure Time: 1300. Time changes happen often and if your time is changed the preop area will call you the afternoon before. - You and your visitor will be asked to self-screen and do not enter if you have any COVID symptoms. - A mask is optional within the hospital at this time. Patients may have clear liquids (water, carbonated beverages, clear teas, apple juice) until 3 hours prior to surgery with a maximum of 20 ounces. - No food from midnight until time of surgery Take the following medications with a SIP of water the morning of surgery: BACLOFEN, GABAPENTIN, METOPROLOL, MIRTAZAPINE DO NOT STOP ANY OF YOUR OTHER PRESCRIPTION MEDICATIONS PRIOR TO SURGERY ?EXCEPT THE FOLLOWING Medications to discontinue per physician: VITAMINS/SUPPLEMENTS Date to take last dose: NO MORE UNTIL AFTER SURGERY Please no make-up, nail pashto, hairspray, perfume, deodorant, or body powder the day of surgery. No jewelry (including any body piercings) or valuables the day of surgery, leave them at home. Please take a shower or bath the night before, or the morning of, surgery with an antibacterial soap. Wear comfortable, loose fitting clothing. - Jewelry must be removed prior to entering the operating room. Rings and piercings that are not removed may be cut off. - The hospital will not accept responsibility for valuables. - Please leave all valuables, including medications, at home the day of surgery. If you are going home after surgery, a licensed transfer driver must drive you home. - NO public transportation without another adult if you receive anesthesia. - We recommend that an adult stay with you for 24 hours following discharge. - We also recommend that you do not drive, make important decision, drink alcoholic beverages, or take any drugs that were not prescribed by your health care provider for at least 24 hours after your discharge time. Follow any additional instructions given to you from your surgeon. If you or anyone in your household have experienced Covid symptoms in the past week, please notify your surgeon or the nurse liaison at the phone number below for possible testing. Telephone instructions given to PATRICIA SCHULER and asked if any additional questions and then verbalized understanding. Patient advised to call surgeon office or pre surgery nurse liaison [phone] if any additional questions.
[2023-07-16] VITALS (9 sets, daily range): BP systolic 90–117; BP diastolic 58–71; PULSE 62–73; RESP 12–14; TEMP 36.1–36.8; O2SAT 95–100
--- NOTE | ~2023-07-16 | XR_ITS ---
EXAMINATION: XR stent kub - surgery DATE: 07/16/2023 13:41 INDICATION: Bilateral ureteral stent exchange. TECHNIQUE: 2 intraoperative spot fluoroscopic views of the abdomen and pelvis were obtained. I was no t present. Fluoroscopy exposure time was 120 seconds. COMPARISON: CT abdomen and pelvis 06/26/2023 FINDINGS: There are bilateral internal ureteral stents in expected positions. A gastrostomy tube is n oted. There is a 17 mm stone in right renal pelvis. There is a phlebolith in right pelvis. IMPRESSION: 1. Bilateral internal ureteral stents in expected positions. 2. Right kidney stone. Reviewed, dictated and finalized at location E. FINISHER
--- NOTE | 2023-07-16 06:20 | WPDHPUPDATE1 ---
History and Physical Update Update Date/Time: 07/16/23 06:20 History and Physical has been reviewed, including an updated exam of the patient. There are NO changes in the patient's condition. Risks, benefits, and alternatives have been discussed and questions answered. Patient agrees to proceed with procedure.
--- NOTE | 2023-07-16 06:22 | WPDHPUPDATE1 ---
History and Physical Update Update Date/Time: 07/16/23 06:22 History and Physical has been reviewed, including an updated exam of the patient. There are NO changes in the patient's condition. Risks, benefits, and alternatives have been discussed and questions answered. Patient agrees to proceed with procedure.
--- NOTE | 2023-07-16 12:15 | WPDANESEPPF ---
Anes - Initial Pre Proc Eval Procedure: Operation Date: 07/16/23 13:00 Proposed Procedures p Cystoscopy, Bilateral Retrograde Pyelogram, Bilateral Ureteroscopy with Stone Extraction, Possible Holmium Laser Lithotripsy, Possible Bilateral Stent Removal/Exchange - Parminder Wilson MD Date/Time: 07/16/23 12:15 Surgeon: Parminder Wilson MD Pre Op Diagnosis: kidney stones Patient Data Age: 48 Gender: M Height: 1.78 m Weight: 73.95 kg Allergies Allergy/AdvReac Type Severity Reaction Status Date / Time Penicillins Allergy Unknown UNKNOWN Verified 07/13/23 09:22 REACTION tape/adhesive AdvReac irrtation Uncoded 07/13/23 09:22 Home Medications Medication Instructions Recorded Confirmed Type ascorbic acid (vitamin C) 500 mg 500 mg feeding tube Q12H 06/20/23 07/13/23 History tablet aspirin 81 mg tablet,delayed 81 mg feeding tube DAILY 06/20/23 07/13/23 History release atorvastatin 40 mg tablet 40 mg feeding tube DAILY 06/20/23 07/13/23 History baclofen 20 mg tablet 20 mg feeding tube TID 06/20/23 07/13/23 History biotin 1 mg tablet 1 mg feeding tube QNOON 06/20/23 07/13/23 History cetirizine 10 mg tablet (Zyrtec) 10 mg feeding tube DAILY 06/20/23 07/13/23 History cholecalciferol (vitamin D3) 25 25 mcg feeding tube QNOON 06/20/23 07/13/23 History mcg (1,000 unit) tablet cyanocobalamin (vitamin B-12) 1,000 mcg feeding tube QNOON 06/20/23 07/13/23 History 1,000 mcg tablet ferrous sulfate 325 mg (65 mg 325 mg feeding tube QNOON 06/20/23 07/13/23 History iron) tablet (Iron (ferrous sulfate)) fesoterodine 8 mg tablet,extended 8 mg PO DAILY 06/20/23 07/13/23 History release 24 hr gabapentin 250 mg/5 mL oral 900 mg feeding tube TID 06/20/23 07/13/23 History solution metoprolol tartrate 25 mg tablet 12.5 mg feeding tube Q12H 06/20/23 07/13/23 History mirtazapine 7.5 mg tablet 7.5 mg feeding tube DAILY 06/20/23 07/13/23 History Patient hx anesthesia problems: none Family hx anesthesia problems: none Results Review: All pre-operative results and documents have been reviewed as part of the pre-operative evaluation. [facility] Past Medical History Medical History CAD (coronary artery disease) Cardiac defibrillator in place CHF (congestive heart failure) Coronary artery disease History of [place] x2, 1 in 2018 and another in 2019. History of gastrostomy tube placement Hyperlipidemia Hypertension Kidney stone Multiple sclerosis Paraplegia Primary chronic progressive multiple sclerosis Patient is wheelchair-bound. Has suprapubic catheter, colostomy, and G-tube. Suprapubic catheter Surgical History Surgical History History of colostomy History of gastrostomy tube placement History of implantable cardioverter-defibrillator (ICD) insertion For history of cardiac arrest x2. History of oral surgery History of suprapubic catheter History of ureter stent Family History Family History Grandparent Acute myocardial infarction Cerebrovascular accident Colon cancer Congestive heart failure Diabetes mellitus Sibling Asthma Diabetes mellitus Son Asthma Mother History of blood clots Leukemia Other Chronic obstructive pulmonary disease Congestive heart failure Father Hypertension Grandparent Hypertension Other Family history non-contributory Social History Social History Social History: Surrogate medical decision maker: Masoud and Love Juan, parents. Code status: Full code. Smoking packs per day: 1 Smoking cigarettes per day: 20.0 Years smoked: 30 Smoking pack-years: 30.00 Smoking status: Current every day smoker Tobacco type: cigarettes Second hand tobacco smoke exposure: Yes Additional smoking asses
[2023-07-16] MEDS: LACTATED RINGERS 1,000 ML 30 ML IV CONT (12:30)
[2023-07-16] MEDS: ceFAZolin 2 GM/D5W 50 ML 2 GM/50 ML BAG IVPB (12:35)
[2023-07-16] MEDS: LIDOCAINE HCL 2% GEL UROJET 10 ML PKG MUCOUS MEM (12:59)
--- NOTE | 2023-07-16 14:00 | P.OP_ITS ---
Procedure Note - Detailed Date of Procedure 07/16/23 Pre-op Diagnosis 1. Bilateral ureteral stones 2. Large right renal pelvic stone Post-op Diagnosis Same Procedure Performed Cystoscopy bilateral ureteral stent removal, right ureteroscopy with stone extraction, left ureteroscopy with laser lithotripsy and stone extraction, bilateral ureteral stent replacement Surgeon Parminder Wilson MD Anesthesia General Description of Procedure Patient has brought the op suite years he is prepped and draped in routine st erile fashion while in a dorsal lithotomy position. Cystoscopy was undertaken with a 16 F flexible cystoscope. The tip each indwelling ureteral stent is grasped and brought to the external urethral meatus. A 0.035 in glidewire was advanced into each renal pelvis. Bilateral ureteroscopy was not undertaken with a 7.5 F flexible ureteral scope. On the right his distal ureteral stone can be extracted and removed without the need for laser lithotripsy. On the left there was a larger stone which I fractured and fragments less than 2 mm. The larger fragments were irrigated from the ureter. I replaced a 4.8 F variable length stent on each side. Each ureter should now be stone free. A 16 F catheter was placed to drainage Estimated Blood Loss 0 Drains Yes Packing No Pathology None sent Complications No immediate complications
== END 2023-07-16 16:15 | disposition home or self-care (01) ==
PROVIDERS: PCP Internal Medicine; Visit Provider Urology
PROC: (CPT 52352; principal; 2023-07-16 13:00)
DX: N20.2 Calculus of kidney with calculus of ureter (principal); I11.0 Hypertensive heart disease with heart failure; I50.9 Heart failure, unspecified; E78.5 Hyperlipidemia, unspecified; F17.210 Nicotine dependence, cigarettes, uncomplicated; I25.10 Atherosclerotic heart disease of native coronary artery without angina pectoris; I25.2 Old myocardial infarction; G35 Multiple sclerosis; G82.20 Paraplegia, unspecified; Z79.82 Long term (current) use of aspirin; Z79.891 Long term (current) use of opiate analgesic; Z93.1 Gastrostomy status; Z96.0 Presence of urogenital implants; Z86.79 Personal history of other diseases of the circulatory system; Z82.49 Family history of ischemic heart disease and other diseases of the circulatory system; Z95.810 Presence of automatic (implantable) cardiac defibrillator; Z99.3 Dependence on wheelchair; Z93.3 Colostomy status
CPT/HCPCS: 52356; 52332; 52352; 82365; 88300; C1769; C2617; J0690; J1100; J2250; J2405; J2704; J3010; J7120

== ENCOUNTER 2023-07-17 16:49 | Inpatient (IN) | payer MEDICARE, MEDICAID, SELFPAY ==
[2023-07-17] VITALS (35 sets, daily range): BP systolic 91–125; BP diastolic 61–82; PULSE 107–122; RESP 12–22; TEMP 37.3–39.8; O2SAT 95–100; BMI 23.9
--- NOTE | ~2023-07-17 | CT_ITS ---
EXAMINATION: CTA chest PE abdomen pel DATE: 07/18/2023 13:52 INDICATION: intubation TECHNIQUE: Computed tomography angiography (CTA) of the chest was performed with 100 mL Omnipaque-350 intravenous contrast timed to evaluate the pulmonary arteries, followed by portal venous phase imagi ng of the abdomen and pelvis. Coronal maximum intensity projection 3D-reconstructions were created by the technologist. The dose-length product (DLP) was 1902.59 mGy-cm. Automated exposure control and i terative reconstruction technique were employed. COMPARISON: None. FINDINGS: CHEST: Lung parenchyma and airways: Endotracheal tube terminates at the right mainstem bronchus. There is ai rway debris in the lower trachea and bilateral lower lobe bronchi. Peripheral and dependent consolida tion. Pleura: Unremarkable. Thoracic inlet, axillae and chest wall: Unremarkable. Thoracic aorta: Normal. Mediastinum: Normal. Heart and pericardium: Normal. Coronary artery calcifications: Mild. Thoracic bones: No acute osseous finding. Pulmonary arteries: Study quality: Adequate. No pulmonary emboli detected. ABDOMEN/PELVIS: Liver: Normal. Biliary/Gallbladder: Cholelithiasis. No inflammatory changes. No bile duct dilation. Pancreas: No mass or duct dilation. Spleen: Normal. Adrenals:No mass. Kidneys: Bilateral ureteral stents. Large right renal pelvis calcification with multiple additional s maller bilateral nonobstructing calculi. Mild bilateral hydronephrosis with urothelial enhancement. P atchy bilateral renal enhancement including a more well-defined 5.4 cm hypoenhancing area in the righ t upper pole and a focal wedge-shaped low density in the right lower pole likely representing a small infarct. GI tract: G-tube, in good position. No small or large bowel dilation. Appendix not confidently visual ized. Mesentery/Peritoneum: No ascites, mass, or free air. Retroperitoneum: No mass. Pelvis: Suprapubic catheter, in good position. Interval drainage of most of the urinary bladder clot. Soft Tissues: Soft tissues and body wall unremarkable. Abdominopelvic bones: Chronic bilateral ischial and sacral erosions. IMPRESSION: No CT evidence of acute pulmonary embolus. Right mainstem bronchus intubation. Bilateral lower lung aspiration. Bilateral pyelonephritis with new lobar nephronia and a small renal infarct on the right. Reviewed, dictated and finalized at location K. [place] EVENT AND SALES ASSISTANT
--- NOTE | ~2023-07-17 | XR_ITS ---
EXAMINATION: XR chest 1V portable DATE: 07/21/2023 12:28 INDICATION: Lung disease status post bronchoscopy. TECHNIQUE: A single frontal view of the chest was obtained. COMPARISON: Chest single view at 5:31 AM FINDINGS: There are airspace opacities in right lower lung zone. No pleural effusion or pneumothorax. The heart size is normal. The endotracheal tube tip is 5.5 cm above the [place]. A left upper extremi ty peripherally inserted central venous catheter (PICC) is seen with tip in the right atrium. A defib rillator overlies left chest. IMPRESSION: 1. Stable airspace opacities in right lower lung zone, consistent with atelectasis versus pneumonia. Reviewed, dictated and finalized at location A. KBOOKS BOOKKEEPER IMPRESSION: 1. Stable airspace opacities in right lower lung zone, consistent with atelecta sis versus pneumonia.
--- NOTE | ~2023-07-17 | XR_ITS ---
EXAMINATION: XR chest 1V portable DATE: 07/19/2023 05:53 INDICATION: Respiratory failure. Pneumonia. TECHNIQUE: A single frontal view of the chest was obtained. COMPARISON: Chest single view 07/18/2023 FINDINGS: There are mild airspace opacities in right lower lung zone and left midlung zone. No pleura l effusion or pneumothorax. The heart size is normal. The endotracheal tube tip is 6.2 cm above the c beatriz. A left upper extremity peripherally inserted central venous catheter (PICC) is seen with tip a t the superior cavoatrial junction. IMPRESSION: 1. Mild airspace opacities in right lower lung zone and left midlung zone with improvement on the rig ht, consistent with pneumonia. Reviewed, dictated and finalized at location E. BOX OPERATOR IMPRESSION: 1. Mild airspace opacities in right lower lung zone and left midlung zone with improvement on the right, consistent with pneumonia.
--- NOTE | ~2023-07-17 | US_ITS ---
EXAMINATION: US venous doppler [facility] DATE: 07/21/2023 10:37 INDICATION: Lower limb swelling. TECHNIQUE: Grayscale ultrasound images without and with compression and Doppler ultrasound images of the bilateral lower extremity veins were obtained. COMPARISON: Ultrasound 07/18/2023 FINDINGS: The visualized portions of right common femoral vein, profunda (deep) femoral vein, femoral vein, pop liteal vein, peroneal veins, posterior tibial veins, and greater saphenous vein outflow are patent. The visualized portions of left common femoral vein, profunda femoral vein, femoral vein, popliteal v ein, peroneal veins, posterior tibial veins, and greater saphenous vein outflow are patent. IMPRESSION: 1. No deep venous thrombosis. Reviewed, dictated and finalized at location A. FACTURING ASSOCIATE
--- NOTE | ~2023-07-17 | XR_ITS ---
EXAMINATION: XR chest ET placement Exam Date/Time: 07/18/2023 14:10 BUSGIRL HISTORY: intubation Comparison: 07/17/2023; CT 07/18/2023. RESULT: Lines, tubes, and devices: Endotracheal tube, terminating 3.6 cm above the [place]. Left chest pacer/ fibrillator with single partially visualized lead Lungs and pleura: Significant rotation towards the right. Streaky and patchy bibasilar opacities. Cardiomediastinal silhouette: Stable. Other: No acute osseous or upper abdominal finding. IMPRESSION: Endotracheal tube is now in good position. Streaky bibasilar atelectasis/consolidation. Reviewed, dictated and finalized at location K. IRL IMPRESSION: Endotracheal tube is now in good position. Streaky bibasilar atelectasis/consol idation.
--- NOTE | ~2023-07-17 | XR_ITS ---
EXAMINATION: XR chest 1V portable Exam Date/Time: 07/18/2023 14:33 MUSEUM REGISTRAR HISTORY: increasing oxygen demands Comparison: Same date at 2:20 PM. RESULT: Lines, tubes, and devices: Endotracheal tube remains in good position. Lungs and pleura: Less rotation in this examination. Increased segmental and lobar airspace disease in the right lung. Airway debris in the right mainstem bronchus. Cardiomediastinal silhouette: Stable. Other: No acute osseous or upper abdominal finding. IMPRESSION: Worsening mucous plugging of the right lung. Reviewed, dictated and finalized at location K. UM REGISTRAR
--- NOTE | ~2023-07-17 | XR_ITS ---
Portable chest x-ray Comparison: 07/20/2023 Clinical History: Respiratory failure Findings: Endotracheal tube and left-sided PICC line are in satisfactory positions. There is discoid right basilar atelectasis. Left lung clear. Cardiomediastinal silhouette is stable. Bones and soft tissues are unremarkable. Impression: Support tubes, as above. Discoid right basilar atelectasis. Reviewed, dictated and finalized at location . FITTER APPRENTICE Impression: Support tubes, as above. Discoid right basilar atelectasis.
--- NOTE | ~2023-07-17 | XR_ITS ---
Portable chest x-ray Comparison: 07/20/2023 at 5:29 AM Clinical History: Tube placement Findings: Endotracheal tube and left-sided PICC line remain in place. Right-sided PICC line tip is p robably in the right atrium. Small right pleural effusion persists. Left lung clear. Cardiomediastin al silhouette is stable. Bones and soft tissues are unremarkable. Impression: Support tubes, as above. Consider mild retraction of PICC line. Small right pleural effusion. Reviewed, dictated and finalized at location M. EMASON SUPERVISOR Impression: Support tubes, as above. Consider mild retraction of PICC line. Small right pleural effusion.
--- NOTE | ~2023-07-17 | XR_ITS ---
Portable chest x-ray Comparison: 07/21/2023 Clinical History: Respiratory failure Findings: Endotracheal tube and left-sided central venous line are in satisfactory positions. There is minimal residual right basilar atelectatic change. Left lung clear. Cardiomediastinal silhouette is stable. Bones and soft tissues are unremarkable. Impression: Stable support tubes. Minimal residual right basilar atelectatic change. Reviewed, dictated and finalized at location . ING FLOOR MANAGER Impression: Stable support tubes. Minimal residual right basilar atelectatic change.
--- NOTE | ~2023-07-17 | XR_ITS ---
Portable chest x-ray Comparison: 07/19/2023 Clinical History: Respiratory failure Findings: Endotracheal tube and left-sided PICC line are in satisfactory positions. Small right pleu ral effusion is present. Left lung clear. Cardiomediastinal silhouette is stable. Bones and soft tis sues are unremarkable. Impression: Stable support lines. Small right pleural effusion. Reviewed, dictated and finalized at location . RADIATION THERAPIST Impression: Stable support lines. Small right pleural effusion.
--- NOTE | ~2023-07-17 | XR_ITS ---
Portable chest x-ray Comparison: 07/22/2023 Clinical History: Respiratory failure Findings: Left-sided PICC line is in satisfactory position. There is probable minimal bibasilar atel ectatic change. Probable minimal right pleural effusion. Cardiomediastinal silhouette is stable. Bone s and soft tissues are unremarkable. Impression: Minimal bibasilar atelectatic change and minimal right pleural effusion. Left-sided PICC line. Reviewed, dictated and finalized at location M. STANT PROFESSOR OF ARCHAEOLOGY Impression: Minimal bibasilar atelectatic change and minimal right pleural effusion. Left-sided PICC line.
--- NOTE | ~2023-07-17 | CT_ITS ---
EXAMINATION: CT chest abdomen pelvis w con DATE: 07/17/2023 17:56 INDICATION: Sepsis. Fever. Hematuria. TECHNIQUE: Computed tomography (CT) of the chest, abdomen, and pelvis was performed with 100 mL Omnip aque 350 intravenous contrast. Automated exposure control and iterative reconstruction technique were employed. The dose-length product was 1293.71 mGy-cm. COMPARISON: CT abdomen and pelvis 06/26/2023 FINDINGS: CHEST CT: There is mild emphysema. There is mild dependent atelectasis bilaterally. No pleural effusion. The he art size is normal. There are coronary artery calcifications. No pericardial effusion. ABDOMEN/PELVIS CT: The liver is normal. There are gallstones in the gallbladder, which is normal in size. The spleen, pa ncreas, and adrenal glands are normal. There is a 10 mm cyst in right kidney. There is a striated nep hrogram on the right, consistent with pyelonephritis. There are greater than 10 stones in right kidne y measuring up to 18 mm. There is a right internal ureteral stent in expected position. There is mild bilateral hydronephrosis and hydroureter. There is a left internal ureteral stent in expected positi on. There are 4 stones in the bladder measuring up to 3 mm. There is urothelial thickening and enhanc ement in the ureters, consistent with pyelitis. A suprapubic catheter is noted. There is a large volu me of hematoma in the bladder. There is a gastrostomy tube in expected position. There are no dilated loops of bowel. The appendix is normal. There are no pathologically enlarged lymph nodes. Aortic ath erosclerosis is noted. There is no free intraperitoneal fluid. There are chronic erosions of the sacr um and ischia. IMPRESSION: 1. Right-sided pyelonephritis. Left-sided pyelitis. 2. Mild bilateral hydronephrosis and hydroureter. Bilateral internal ureteral stents in expected posi tions. 3. Nonobstructing right kidney stones. Small bladder stones. 4. Large volume of hematoma in the bladder. Reviewed, dictated and finalized at location E. L WORD PROCESSOR IMPRESSION: 1. Right-sided pyelonephritis. Left-sided pyelitis. 2. Mild bilateral hydronephrosis and hydroureter. Bilateral internal ureteral s tents in expected positions. 3. Nonobstructing right kidney stones. Small bladder stones. 4. Large volume of hematoma in the bladder.
--- NOTE | ~2023-07-17 | CT_ITS ---
EXAMINATION: CT brain wo con DATE: 07/18/2023 21:40 INDICATION: unequal pupils . TECHNIQUE: Computed tomography (CT) of the head was performed without intravenous contrast. The mA wa s adjusted according to patient size. Iterative reconstruction technique was employed. The dose-lengt h product was 756.67 mGy-cm. COMPARISON: Same date at 1:36 PM. FINDINGS: No acute intracranial hemorrhage or extra-axial fluid collection. No hydrocephalus, mass, or herniation. No acute ischemic infarct. Unremarkable dural venous sinus attenuation. No acute osseous abnormality. Retention cyst/polyp in the left maxillary sinus, the remaining aerated spaces are clear. Mild atrophy and chronic white matter change. Atherosclerotic intracranial calcification. IMPRESSION: No acute intracranial process. Reviewed, dictated and finalized at location K. ING MACHINE CONTROL BOARD OPERATOR
--- NOTE | ~2023-07-17 | US_ITS ---
EXAMINATION: US arterial ankle brachial ind DATE: 07/19/2023 19:12 INDICATION: Peripheral arterial disease. Absent left lower extremity pulse. TECHNIQUE: Segmental pressures and plethysmographic and Doppler waveforms of the brachial and lower e xtremity arteries were obtained. COMPARISON: None. FINDINGS: Right brachial artery pressure is 99 mm Hg. The left brachial artery pressure was not measured. The right ankle-brachial index (JERMAIN) is 1.00 (normal >= 0.9-1.0). The right great toe-brachial index (TBI) is 0.72 (normal >= 0.65). Arterial Doppler waveforms are at least biphasic at the ankle. The left JERMAIN is 0.93. The left TBI is 0.80. Arterial Doppler waveforms are monophasic at the ankle. IMPRESSION: 1. No significant arterial occlusive disease. Reviewed, dictated and finalized at location A. MACHINE OPERATOR
--- NOTE | ~2023-07-17 | US_ITS ---
EXAMINATION: US venous doppler [facility] DATE: 07/18/2023 17:15 INDICATION: Rule out DVT . TECHNIQUE: Grayscale images without and with compression and Doppler images of the bilateral lower ex tremity veins were obtained. COMPARISON: None FINDINGS: The right common femoral vein, profunda (deep) femoral vein, femoral vein, greater saphenous vein are patent. Right popliteal, posterior tibial, and peroneal veins were not visualized. The left common femoral vein, profunda (deep) femoral vein, femoral vein, and greater saphenous vein are patent. The left popliteal, posterior tibial, and peroneal veins not visualized. IMPRESSION: Limited examination. Bilateral popliteal veins, posterior tibial veins and peroneal veins were not ad equately. No evidence of deep venous thrombosis in the more proximal visualized veins. Reviewed, dictated and finalized at location K. E REPAIRER IMPRESSION: Limited examination. Bilateral popliteal veins, posterior tibial veins and isaak erica veins were not adequately. No evidence of deep venous thrombosis in the more proximal visualized veins.
--- NOTE | ~2023-07-17 | XR_ITS ---
EXAMINATION: XR chest 1V portable DATE: 07/17/2023 17:15 INDICATION: Fever. TECHNIQUE: A single frontal view of the chest was obtained. COMPARISON: Chest single view 06/20/2023 FINDINGS: There is mild atelectasis in left midlung zone. No pleural effusion or pneumothorax. The he art size is normal. A defibrillator wire overlies the left chest. A right ureteral stent is noted. Th ere is a stone in right kidney. IMPRESSION: 1. Mild atelectasis in left midlung zone. Reviewed, dictated and finalized at location E. ICE SPECIALIST
--- NOTE | ~2023-07-17 | CT_ITS ---
EXAMINATION: CT brain wo con DATE: 07/18/2023 13:51 INDICATION: Altered mental status. TECHNIQUE: Computed tomography (CT) of the head was performed without intravenous contrast. The mA wa s adjusted according to patient size. Iterative reconstruction technique was employed. The dose-lengt h product was 681.00 mGy-cm. COMPARISON: None FINDINGS: There are scattered areas of low attenuation in the cerebral white matter. There are old in farcts in the temporal parietal regions bilaterally. There is no intracranial hemorrhage, acute infar ction, or abnormal intracranial mass lesion. The ventricles are normal in size. The orbits are normal . There is mild mucosal thickening in the paranasal sinuses. The mastoid air cells are normal. IMPRESSION: 1. 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 Reviewed, dictated and finalized at location A. O SERVICE SUPERVISOR
--- NOTE | 2023-07-17 17:04 | ECG_ITS ---
Measurements Intervals [place] Rate: 115 P: 46 RI: 128 QRS: -1 QRSD: 93 T: 64 QT: 300 QTc: 416 Interpretive Statements SINUS TACHYCARDIA CONSIDER INFERIOR INFARCT, AGE INDETERMINATE ABNORMAL ECG COMPARED TO ECG 09/05/2019 14:35:04 SINUS TACHYCARDIA NOW PRESENT Electronically Signed On 07-17-2023 19:21:31 SELF PAY COLLECTOR by Derek Davis D.O.
[2023-07-17] MEDS: SODIUM CHLORIDE 0.9% IV 1,000 ML 999 ML ×2 (17:08→17:16)
[2023-07-17 17:20] LABS: Basophils Percent Auto 0.2 % (0.2-1.2); Eosinophils Percent Auto 0.2 % (0-4.4); Hematocrit 40.6 % (42.0-52.0); Hemoglobin 12.9 g/dL (14.0-18.0); Immature Granulocyte Absolute 0.07 K/mm3 (0.00-0.031); Immature Granulocyte Percent A 0.4 % (0-0.5); Lymphocytes Absolute Auto 0.58 K/mm3 (0.9-3.2); Lymphocytes Percent Auto 3.3 % (18.3-44.2); Mean Corpuscular HGB Conc 31.8 g/dl (32-36); Mean Corpuscular Hemoglobin 28.5 pg (26-34); Mean Corpuscular Volume 89.8 fl (80-100); Mean Platelet Volume 12.3 fl (7.4-10.4); Monocytes Percent Auto 5.6 % (2.6-8.5); Neutrophils Absolute Auto 15.9 K/mm3 (1.3-6.7); Neutrophils Percent Auto 90.3 % (45.5-73.1); Platelet Count Result 112 k/mm3 (150-375); Red Blood Count 4.52 M/mm3 (4.6-6.20); Red Cell Distribution Width 14.2 % (11.5-14.5); White Blood Count 17.6 K/mm3 (4.5-10.0)
--- NOTE | 2023-07-17 17:20 | ECG_ITS ---
Measurements Intervals [place] Rate: 83 P: 36 GA: 171 QRS: 6 QRSD: 113 T: 94 QT: 409 QTc: 482 Interpretive Statements SINUS RHYTHM POSSIBLE RIGHT ATRIAL ENLARGEMENT POSSIBLE LEFT ATRIAL ENLARGEMENT INCOMPLETE RIGHT BUNDLE BRANCH BLOCK LEFT VENTRICULAR HYPERTROPHY AND ST-T CHANGE BORDERLINE ECG COMPARED TO ECG 07/17/2023 17:07:21 SINUS RHYTHM NOW PRESENT INCOMPLETE RIGHT BUNDLE-BRANCH BLOCK NOW PRESENT LEFT VENTRICULAR HYPERTROPHY NOW PRESENT Electronically Signed On 07-19-2023 11:58:47 DATASTAGE CONSULTANT by Derek Davis D.O.
[2023-07-17 17:33] LABS: Lactic Acid Reflex 1.8 mmol/L (0.7-2.0)
[2023-07-17 17:35] LABS: INR 1.1; Prothrombin Time 14.7 Seconds (11.1-14.7)
[2023-07-17 17:36] LABS: Partial Thromboplastin Time 31.4 SECONDS (22.3-36.8)
[2023-07-17 17:39] LABS: Alanine Aminotransferase 19 U/L (6-50); Albumin Level 3.9 g/dL (3.5-5.1); Alkaline Phosphatase 107 U/L (38-126); Anion Gap 9 mmol/L (8-16); Aspartate Amino Transferase 27 U/L (17-59); Bilirubin,Total 0.6 mg/dL (0.2-1.3); Blood Urea Nitrogen 21 mg/dL (9-20); CRP 5.9 mg/dL (<1.0); Calcium 8.5 mg/dL (8.4-10.2); Carbon Dioxide 24 mmol/L (22-30); Chloride 103 mmol/L (98-107); Estimated CRCL calculation 116 ml/min; Estimated Glomerular Filt Rate > 60; Glucose 128 mg/dL (65-110); Lipase 56 U/L (23-300); Potassium 4.5 mmol/L (3.4-5.0); Sodium 136 mmol/L (137-145)
--- NOTE | 2023-07-17 17:39 | ED.FEVER ---
HPI - Fever General Chief Complaint: Fever Stated Complaint: fever Time Seen by Provider: 07/17/23 17:29 History of Present Illness HPI Narrative: Patient is a 48-year-old male with a history of MS presenting with fever. Patient's family is at bedside and helps with the history. He recently had some urologic procedures to have stents removed and replaced. This was yesterday or the day before. Today he woke up with a fever around 101. He was complaining of general malaise. This afternoon his fever was 104 so they brought him in for evaluation. Patient complains of generalized weakness and malaise but no focal pain. No nausea or vomiting. No further complaints. Related Data Home Medications Medication Instructions Recorded Confirmed ascorbic acid (vitamin C) 500 mg 500 mg feeding tube Q12H 06/20/23 07/17/23 tablet aspirin 81 mg tablet,delayed 81 mg feeding tube DAILY 06/20/23 07/17/23 release atorvastatin 40 mg tablet 40 mg feeding tube DAILY 06/20/23 07/17/23 baclofen 20 mg tablet 20 mg feeding tube TID 06/20/23 07/17/23 biotin 1 mg tablet 1 mg feeding tube QNOON 06/20/23 07/17/23 cetirizine 10 mg tablet (Zyrtec) 10 mg feeding tube DAILY 06/20/23 07/17/23 cholecalciferol (vitamin D3) 25 25 mcg feeding tube QNOON 06/20/23 07/17/23 mcg (1,000 unit) tablet cyanocobalamin (vitamin B-12) 1,000 mcg feeding tube QNOON 06/20/23 07/17/23 1,000 mcg tablet ferrous sulfate 325 mg (65 mg 325 mg feeding tube QNOON 06/20/23 07/17/23 iron) tablet (Iron (ferrous sulfate)) fesoterodine 8 mg tablet,extended 8 mg PO DAILY 06/20/23 07/17/23 release 24 hr gabapentin 250 mg/5 mL oral 1,500 mg feeding tube TID 06/20/23 07/17/23 solution metoprolol tartrate 25 mg tablet 12.5 mg feeding tube Q12H 06/20/23 07/17/23 mirtazapine 7.5 mg tablet 7.5 mg feeding tube DAILY 06/20/23 07/17/23 Allergies Allergy/AdvReac Type Severity Reaction Status Date / Time Penicillins Allergy Unknown UNKNOWN Verified 07/16/23 12:53 REACTION tape/adhesive AdvReac irrtation Uncoded 07/16/23 12:53 Review of Systems Review of Systems: All systems reviewed & are unremarkable except as noted in HPI and below PMFSH Past Medical History Medical History (Updated 07/19/23 @ 15:49 by Arianna Grace MD) Cardiac defibrillator in place CHF (congestive heart failure) Coronary artery disease History of [place] x2, 1 in 2018 and another in 2019. Hyperlipidemia Hypertension Kidney stone Multiple sclerosis Paraplegia Primary chronic progressive multiple sclerosis Patient is wheelchair-bound. Has suprapubic catheter, colostomy, and G-tube. Suprapubic catheter Surgical History Surgical History History of colostomy History of gastrostomy tube placement History of implantable cardioverter-defibrillator (ICD) insertion For history of cardiac arrest x2. History of oral surgery History of suprapubic catheter History of ureter stent Family History Family History Grandparent Acute myocardial infarction Cerebrovascular accident Colon cancer Congestive heart failure Diabetes mellitus Sibling Asthma Diabetes mellitus Son Asthma Mother History of blood clots Leukemia Other Chronic obstructive pulmonary disease Congestive heart failure Father Hypertension Grandparent Hypertension Other Family history non-contributory Social History Social History Social History: Surrogate medical decision maker: Masoud and Love Juan, parents. Code status: Full code. Smoking packs per day: 1 Smoking cigarettes per day: 20.0 Years smoked: 30 Smoking pack-years: 30.00 Smoking status: Smoker, status unknown Tobacco type: cigarettes Second hand tobacco smoke exposure: No Additional smoking assessment comments: 1ppd x 30 years Alcohol intake:
[2023-07-17 17:42] LABS: Troponin I < 0.012 ng/mL (0.000-0.034)
[2023-07-17] MEDS: SODIUM CHLORIDE 0.9% IV 200 ML 999 ML (17:43)
--- NOTE | 2023-07-17 19:31 | PM.IMHP ---
H&P: HPI History of Present Illness Date/Time: 07/17/23 19:30 Chief Complaint: Fever. Narrative: This is a 48-year-old male with history of primary progressive multiple sclerosis, kidney stones, MT, and cardiac arrest status post defibrillator insertion who presented to the emergency department via EMS from home for evaluation of a fever. A majority of the following history is obtained from his parents as the patient feels unwell and is sleeping. He is known to myself and the hospitalist service from a recent admission last month at which time he was admitted under similar circumstances with sepsis, urinary tract infection, and bilateral ureteral calculi. He underwent cystoscopy and stent placement and he was discharged home on cefepime with a midline for Pseudomonas aeruginosa UTI. He had been doing better and yesterday he was scheduled for an elective outpatient procedure per Dr. Wilson. He underwent cystoscopy with bilateral ureteral stent removal, right ureteroscopy with stone extraction, left ureteroscopy with laser lithotripsy and stone extraction, and bilateral ureteral stent replacement. He seemed to be doing okay after the procedure albeit was a bit groggy. He has had some blood in his Barr catheter which is not unusual for him following urologic procedures. This morning he seemed in his usual state of health however within a couple of hours he spiked a fever for which he received acetaminophen. Within a couple of hours his temperature was back up to 104.5? F and he was brought in for evaluation. The patient himself has no complaints however parents report that he rarely complaints. In the ED: His vital signs on arrival include a pressure 91/61, pulse 116, respiratory rate 12, pulse ox 96% room air, temperature 103.2?. Labs were significant for a WBC count of 17.6, hemoglobin 12.9, platelets 112, creatinine 0.70, lactic acid 1.8, CRP 5.9. Urine was grossly bloody with 2+ leukocyte esterase, greater than 100 RBC, 51 to 100 WBC, and 1+ bacteria. CT of the chest, abdomen, and pelvis showed right-sided pyelonephritis and left-sided pyelitis, mild bilateral hydronephrosis and hydroureter with bilateral stents in expected position, nonobstructing right kidney stones, small bladder stones, large volume of hematoma in the bladder. ED physician spoke with the on-call urologist who advises antibiotics and they will see the patient in the morning. He received a 30 mL/kg bolus of normal saline and 2 g cefepime and he is being admitted in this setting for further treatment. Review of Systems Review of Systems: Reviewed and negative except for as per HPI. [facility] Past Medical History Medical History (Updated 07/17/23 @ 22:14 by Columba Jiang PA-C) Cardiac defibrillator in place CHF (congestive heart failure) Coronary artery disease History of MT x2, 1 in 2018 and another in 2019. Hyperlipidemia Hypertension Kidney stone Multiple sclerosis Paraplegia Primary chronic progressive multiple sclerosis Patient is wheelchair-bound. Has suprapubic catheter, colostomy, and G-tube. Suprapubic catheter Surgical History Surgical History History of colostomy History of gastrostomy tube placement History of implantable cardioverter-defibrillator (ICD) insertion For history of cardiac arrest x2. History of oral surgery History of suprapubic catheter History of ureter stent Family History Family History Grandparent Acute myocardial infarction Cerebrovascular accident Colon cancer Congestive heart failure Diabetes mellitus Sibling Asthma Diabetes mellitus Son Asthma Mother History of blood clots Leukemia Other Chronic obstructive pulmonary disease Congestive heart failure Father Hypertension Grandparent Hypertension Other Family history non-contributory Social History Social History (Reviewed 07/17/23
--- NOTE | 2023-07-17 19:35 | PC.NURSE ---
This RN took patient report from KATHI Morales. This RN assumed care of patient.
[2023-07-17 20:00] LABS: Appearance Urine Clear (Clear); Bacteria Urine 1+ /hpf; Bilirubin Urine Negative (Negative); Blood Urine 3+ (Negative); Glucose Urine UA Negative (Negative); Ketones Urine Negative (Negative); Leukocyte Esterase Ur 2+ LEU/UL (Negative); Need Manual Microscopic Reviewed; Nitrate Urine Negative (Negative); Non Pathogenic Casts 0-2; Protein Urine 3+ mg/dL (Negative); Squamous Epithelial Cell Urine Moderate /hpf (Few); Urobilinogen Urine 0.2 mg/dL (<2.0); WBC Urine 51-100 /hpf
[2023-07-17 20:01] LABS: Color Urine Red (Yellow); RBC Urine >100 /hpf (0-2); Specific Grav Ur 1.038 (1.001-1.035)
[2023-07-17 20:02] LABS: Add Urine Microscopic? YES
[2023-07-17] MEDS: CEFEPIME 2 GM/NS 50 ML 2 GM/50 ML BAG IVPB (20:49)
[2023-07-17] MEDS: ACETAMINOPHEN 500 MG TABLET 1000 MG FEED TUBE (21:27)
[2023-07-17] MEDS: LACTATED RINGERS 1,000 ML 100 ML IV CONT (23:12)
--- NOTE | 2023-07-17 23:12 | ADMGEN ---
This patient, Masoud Juan, was admitted to IMU Room 201-01 @[id number] Patient/family oriented to hospital policies and general routines including ID bracelet, bed and alarms, visiting hours, pain management, procedures, bathroom and other care routines, personal items, smoking policy, room service/diet, and visiting hours. Information on how to activate the Rapid Response Team has been discussed. Patient/Family are encouraged to report perceived risks to care and to ask questions if they do not understand what they are told or what they should do.
[2023-07-18] VITALS (38 sets, daily range): BP systolic 83–154; BP diastolic 60–83; PULSE 93–156; RESP 12–40; TEMP 37.2–39.7; O2SAT 76–100
[2023-07-18] MEDS: ACETAMINOPHEN 325 MG TABLET 650 MG PO ×2 (02:48→12:40)
[2023-07-18 04:32] LABS: Basophils Absolute Auto 0.1 K/mm3 (0.0-0.1); Basophils Percent Auto 0.4 % (0.2-1.2); Eosinophils Absolute Auto 0.1 K/mm3 (0-0.3); Eosinophils Percent Auto 0.5 % (0-4.4); Hematocrit 39.1 % (42.0-52.0); Immature Granulocyte Percent A 0.8 % (0-0.5); Lymphocytes Absolute Auto 0.72 K/mm3 (0.9-3.2); Lymphocytes Percent Auto 2.8 % (18.3-44.2); Mean Corpuscular HGB Conc 30.7 g/dl (32-36); Mean Corpuscular Hemoglobin 28.6 pg (26-34); Mean Corpuscular Volume 93.1 fl (80-100); Mean Platelet Volume 12.3 fl (7.4-10.4); Monocytes Absolute Auto 1.4 K/mm3 (0.1-0.6); Monocytes Percent Auto 5.4 % (2.6-8.5); Neutrophils Absolute Auto 22.9 K/mm3 (1.3-6.7); Neutrophils Percent Auto 90.1 % (45.5-73.1); Platelet Count Result 104 k/mm3 (150-375); Red Cell Distribution Width 14.4 % (11.5-14.5); White Blood Count 25.4 K/mm3 (4.5-10.0)
[2023-07-18 04:52] LABS: Anion Gap 9 mmol/L (8-16); Blood Urea Nitrogen 13 mg/dL (9-20); Calcium 8.1 mg/dL (8.4-10.2); Carbon Dioxide 23 mmol/L (22-30); Chloride 104 mmol/L (98-107); Estimated CRCL calculation 103 ml/min; Estimated Glomerular Filt Rate > 60; Glucose 132 mg/dL (65-110); Magnesium 1.5 mg/dL (1.6-2.3); Potassium 4.2 mmol/L (3.4-5.0); Sodium 136 mmol/L (137-145)
[2023-07-18] MEDS: CEFEPIME 2 GM/NS 50 ML 2 GM/50 ML BAG IVPB ×3 (05:45→20:21)
[2023-07-18] MEDS: MAGNESIUM SULF 2 GM/WATER 50ML 2 GM/50 ML BAG IVPB (08:59)
--- NOTE | 2023-07-18 10:51 | WPDURCON ---
Assessment and Plan Assessment and plan (1) Pyelonephritis of right kidney: Code(s): N12 - Tubulo-interstitial nephritis, not specified as acute or chronic Status: Acute Assessment and Plan: Continue broad spectrum antibiotics (2) Acute UTI: Code(s): N39.0 - Urinary tract infection, site not specified Status: Acute Assessment and Plan: Stents are in place. SPT is draining. I flushed SPT (3) Sepsis: Qualifiers: Severe sepsis acute organ dysfunction type: critical illness myopathy Code(s): A41.9 - Sepsis, unspecified organism Status: Acute Assessment and Plan: Continue broad spectrum antibiotics. Urology Consult Note HPI Date Seen: 07/18/23 Requesting Physician: Evangelist Peters MD Primary Care Provider: Sarah TiradoMD Consult Narrative Narrative: Masoud Juan is a 48 year old male who had bilateral ureteroscopy by Dr. Wilson on . Bilateral stents were left in place. He had both an SPT and a Barr after surgery. Barr catheter was removed yesterday, and the patient developed fevers. He came to the ER for further assessment and pyelonephritis was found. He was admitted and started on antibiotics. I reviewed his CT scan. Stone fragments are still present. Both stents are in place. Clot was noted in the bladder. The SPT continues to drain. There is evidence of old blood in the urine. Review of Systems Review of Systems: ROS unobtainable: Yes unobtainable due to mental status PMFSH Past Medical History Medical History (Updated 07/17/23 @ 22:14 by Columba Jiang PA-C) Cardiac defibrillator in place CHF (congestive heart failure) Coronary artery disease History of AL x2, 1 in 2018 and another in 2020. Hyperlipidemia Hypertension Kidney stone Multiple sclerosis Paraplegia Primary chronic progressive multiple sclerosis Patient is wheelchair-bound. Has suprapubic catheter, colostomy, and G-tube. Suprapubic catheter Surgical History Surgical History History of colostomy History of gastrostomy tube placement History of implantable cardioverter-defibrillator (ICD) insertion For history of cardiac arrest x2. History of oral surgery History of suprapubic catheter History of ureter stent Family History Family History Grandparent Acute myocardial infarction Cerebrovascular accident Colon cancer Congestive heart failure Diabetes mellitus Sibling Asthma Diabetes mellitus Son Asthma Mother History of blood clots Leukemia Other Chronic obstructive pulmonary disease Congestive heart failure Father Hypertension Grandparent Hypertension Other Family history non-contributory Social History Social History Social History: Surrogate medical decision maker: Masoud and Love Juan, parents. Code status: Full code. Smoking packs per day: 1 Smoking cigarettes per day: 20.0 Years smoked: 30 Smoking pack-years: 30.00 Smoking status: Smoker, status unknown Tobacco type: cigarettes Second hand tobacco smoke exposure: No Additional smoking assessment comments: 1ppd x 30 years Alcohol intake: never Substance use: never Substance use type: does not use Lack of Transportation: No Lack of Food: Never True Current Housing: I Have Housing Concerned About Future Housing: No Difficulty Paying Gas/Electric Bills: No Difficulty Paying for Meds: No Currently Unemployed: No Education: High School Diploma/GED Difficulty w/ Childcare or Family Care: No Living arrangements: with family Additional living arrangements comments: Lives with parents in [place]. He has 3 grown sons. Spiritual care concerns: No Meds Home Medications and Allergies Home Medications Medication Instructions Rec
--- NOTE | 2023-07-18 11:12 | PM.IMPN ---
Progress Note: A&P Assessment and Plan (1) Sepsis: Qualifiers: Severe sepsis acute organ dysfunction type: critical illness myopathy Code(s): A41.9 - Sepsis, unspecified organism Status: Acute Assessment and Plan: The patient presents with high fever, tachycardia and leukocytosis. Hx of pseudomonas UTI BP soft at 90/58 in ED. His blood pressure improved after 30 mL/kg IV fluid bolus. BCx collected. UA showing mostly gross hematuria but can not exclude UTI. CT Chest/Abd/Pelvis showing right sided pyelonephritis, left sided pyelitis and mild bilateral hydronephrosis and hydroureter. Stents in expected position. Large volume of hematoma in the bladder. Mild atelectasis and emphysema but no evidence of PNA. WBC up to 25K Started on cefepime and Vanco. Follow up on cultures. Continue IV abx. Resume IV fluids and hold off on TF until he is more awake and alert. Monitor close since he does have hx of CHF. (2) Pyelonephritis of right kidney: Code(s): N12 - Tubulo-interstitial nephritis, not specified as acute or chronic Status: Acute Assessment and Plan: CT Abd/Pelvis showing right sided pyelonephritis, left sided pyelitis and mild bilateral hydronephrosis and hydroureter. Stents in expected position. Large volume of hematoma in the bladder. Suspected this is the source of his sepsis. As above (3) Altered mental status: Code(s): R41.82 - Altered mental status, unspecified Status: Acute Assessment and Plan: Patient is altered and poorly responsive. He normally talks and is coherent. [place] related to above. Proceed with further evaluation if he does not improve as expected. (4) Right renal stone: Code(s): N20.0 - Calculus of kidney Status: Acute Assessment and Plan: Patient was hospitalized here in June for sepsis and found to have pseudomonas UTI and bilateral ureteral stones. He underwent cystoscopy and bilateral ureteral stent placement on 06/19/23. Home with IV Cefepime. He returned to Urology clinic on 07/16 and had cystoscopy with bilateral ureteral stent removal, right ureteroscopy with stone extraction, left ureteroscopy with laser lithotripsy and stone extraction, and bilateral ureteral stent replacement. He had both an SPT and a Barr after surgery. Barr catheter was removed yesterday. Bladder stones noted. Urology consulted and they are at bedside and flushing SP. (5) Bilateral hydronephrosis: Code(s): N13.30 - Unspecified hydronephrosis Status: Acute Assessment and Plan: Related to above (6) Multiple sclerosis: Code(s): G35 - Multiple sclerosis Status: Acute Assessment and Plan: Patient with chronic progressive MS. He is wheel-chair bound. He has PEG, suprapubic cath and colostomy. Discussed code status with family in the room and they wish to keep him a full code. Hold TF until he is more awake (7) Bladder stones: Code(s): N21.0 - Calculus in bladder Status: Acute Assessment and Plan: As above Plan DVT Prophylaxis - SCDs Code status - Full. Subjective Date/time seen: 07/18/23 11:13 Interval history: 48yo male with MS, CAD, CHF, kidney stones with recent right ureteroscopy with stone extraction, left ureteroscopy with laser lithotripsy and stone extraction on 07/16 here for fevers. Patient awake but moaning with mumbled speech so hx unable to be obtained. Exam Narrative: Tm 103.6 99.9 122/64 115 16 100% ra Gen - chronically ill appearing male in NARD but occasionally moaning Chest - few rhonchi in the flanks, clear anteriroly. nml RR CV - tachycardic, regular Abd - soft, GTube site clean, dry and intact. Colostomy bag noted left abdomen. SP catheter secured with dark red urine in bag Ext - No pedal edema. Neuro - awake with eyes opened but obtunded. garbled speech. exam limited Psych - unable to assess Skin - cool and dry
[2023-07-18] MEDS: SODIUM CHLORIDE 0.9% IV 1,000 ML 60 ML IV CONT (12:43)
[2023-07-18] MEDS: ROCURONIUM BROMIDE 50 MG/5 ML VIAL IV PUSH ×2 (14:15→14:59)
[2023-07-18] MEDS: ETOMIDATE 20 MG/10 ML AMPUL IV PUSH (14:15)
[2023-07-18] MEDS: MIDAZOLAM HCL (*CRX) 2 MG/2 ML VIAL IV PUSH (14:16)
[2023-07-18] MEDS: PROPOFOL IV EMULSION 100 ML 2.27 MG IV CONT (14:34)
[2023-07-18 14:55] LABS: Alveolar/Arterial O2 Gradient 599.3 mmHg; Base Excess ABG -4.6 mEq/l (+/-2.0); Carboxyhemoglobin 0.3 % THb (0-2.0); Fractional Inspired Oxygen 100 %; HCO3 ABG 20.6 mEq/l (22.0-26.0); Methemoglobin ABG 0.4 %THb (0-1.5); Oxygen Content ABG 17.6 %vol (16.0-22.0); Oxygen Saturation ABG 94.5 % (95.0-100.0); Oxyhemoglobin 93.9 % THb (90.0-100.0); PCO2 ABG 38.6 mmHg (35.0-45.0); PO2 ABG 75.1 mmHg (80.0-100.0); PO2 FiO2 Ratio Arterial Blood 0.75 %; Reduced Hemoglobin 5.4 %THb (0-5.0); Total Hemoglobin 13.3 g/dL (12.0-18.0); pH ABG 7.346 (7.350-7.450)
[2023-07-18 14:56] LABS: Device VENTILATOR; Modified Allen's Test Pass; Site Drawn RIGHT RADIAL
[2023-07-18 14:58] LABS: Arterial Blood Gas PEEP 14 cmH2O; Arterial Blood Gas Tidal Volume 450 ml; Arterial Blood Gas Vent Mode CMV; Arterial Blood Gas Ventilator rate 20 /MIN
[2023-07-18] MEDS: METOPROLOL TARTRATE INJ 5 MG/5 ML VIAL 2.5 MG IV PUSH (15:00)
[2023-07-18 15:09] LABS: Triglycerides 97 mg/dL (<150)
--- NOTE | 2023-07-18 15:11 | P.PCNBED_ITS ---
Procedures Intubation Intubation Date: 07/18/23 Intubation Time: 14:28 Consent: Consent was obtained from the mother, Domi Juan who is the POA, who consented to intubation and mechanical ventilation A pre-procedural Time-Out was completed immediately before starting the procedure and confirmed: Patient Identification, Site, Procedure, Patient Position and the Availability of Requisite Equipment: Yes Sedative: etomidate Paralytic: rocuronium Laryngoscope: fiber optic video scope Assist device used: fiber optic device ET tube size: 8 Tube secured depth (cm): 23 Tube secured location: lips Tube placement confirmation: visualized tube passing through cords, equal breath sounds bilaterally, no breath sounds over epigastrium and confirmation by capnometry Patient tolerated procedure: well and no complications Intubation complications: none Additional comments: I placed the 1st ETT, without any difficulty, sats were 98-99% on 100% FiO2. Patient started having cuff leak, will start getting his volumes, I switched the ETT over a bougie. Thereafter patient's O2 sats would dropped,, status chest x- ray showed worsening of mucus plugging on the right side, airway debris in the right mainstem bronchus. Patient was brought with significant suction of secretions and thick mucus with improvement in O2 sats.
--- NOTE | 2023-07-18 15:17 | WPDCNINT ---
Assessment and Plan Assessment and plan (1) Acute respiratory failure: Qualifiers: Respiratory failure complication: hypoxia and hypercapnia Qualified Code(s): J96.01 - Acute respiratory failure with hypoxia; J96.02 - Acute respiratory failure with hypercapnia Code(s): J96.00 - Acute respiratory failure, unspecified whether with hypoxia or hypercapnia Status: Acute Assessment and Plan: 07/18/2023: I was called to see the patient intermediate Unit, patient was obtunded, hypoxic, with agonal breathing, I decided to intubate the patient in the intermediate Unit. -patient was talking cardiac solid thought was that he could have a pulmonary embolism, pneumonia, mucus plugging as he had decreased right-sided breath sounds - Intubation was uneventful, 1st ETT at a cuff leak so had to be intubated the patient using a bougie. After the 2nd ETT was inserted patient had decreased O2 sats, so stat chest x-ray showed mucus plugging in the right mainstem, patient was placed back on the ventilator with a PEEP of 14, quickly suction him with some saline lavage, and I quickly bronch the patient, has significant thick mucus plugging in the right mainstem which was suctioned out, also had mild to thick in the left mainstem which was also suctioned out. His O2 sats improved to greater than 95%. -will start Pulmozyme, Mucomyst nebulizer -also started Xopenex and Atrovent bronchodilator treatments -ETT was withdrawn 3 cm, repeat chest x-ray showed ETT in good position but patient had worsening mucus plugging of the right lung Sedated with propofol, maintain RASS of 0 to -2 07/18/2023: CTA chest abdomen and pelvis IMPRESSION: No CT evidence of acute pulmonary embolus. Right mainstem bronchus intubation. Bilateral lower lung aspiration. Bilateral pyelonephritis with new lobar nephronia and a small renal infarct on the right. (2) Sepsis: Qualifiers: Severe sepsis acute organ dysfunction type: encephalopathy Sepsis type: sepsis due to unspecified organism Code(s): A41.9 - Sepsis, unspecified organism Status: Acute Assessment and Plan: 07/17/2023: Patient presented with fevers, low blood pressures which responded well to IV fluid bolus Off note: Patient was admitted to [facility] June for sepsis and was found to have Pseudomonas UTI and bilateral ureteral stones. He underwent a cystoscopy and bilateral ureteral stents were placed on 06/19/2023. Was sent home on home health with IV cefepime. 07/16/2023 D10 to the urology clinic and had a cystoscopy with bilateral ureteral stent removal, right ureteroscopy with stone extraction, left ureteroscopy with laser lithotripsy and stone extraction, and bilateral ureteral stent placement. He had both and SBT and a Barr after is the 1st procedure, and Barr was removed on 07/16/2023. Sepsis secondary to bilateral pyelonephritis as mentioned the CT scan above -patient was started on vancomycin and cefepime (07/17) -urine output has been adequate, renal function has been within normal limits -07/17 blood cultures: Obtained and pending -07/17 urine cultures: Obtained and pending Urine cultures on 06/19/2023 grew Pseudomonas (resistant to fluoroquinolones) (3) Pyelonephritis of right kidney: Code(s): N12 - Tubulo-interstitial nephritis, not specified as acute or chronic Status: Acute Assessment and Plan: Continue antibiotics as above, blood in urine cultures are pending 07/17/2023: CT scan of the chest, abdomen and pelvis on admission IMPRESSION: 1. Right-sided pyelonephritis. Left-sided pyelitis. 2. Mild bilateral hydronephrosis and hydroureter. Bilateral internal ureteral stents in expected positions. 3. Nonobstructing right kidney stones. Small bladder stones. 4. Large volume of hematoma in the bladder. (4) Altered mental status: Code(s): R41.82 - Altered mental status, unspecified Status: Acute Assessment and Pl
[2023-07-18] MEDS: PANTOPRAZOLE SODIUM IV 40 MG VIAL IV PUSH (15:22)
[2023-07-18] MEDS: IPRATROPIUM BR 0.02% INH SOLN 0.5 MG/2.5 ML VIAL INHALATION ×2 (15:23→20:28)
[2023-07-18] MEDS: LEVALBUTEROL NEB 1.25 MG/3 ML INHALATION ×2 (15:23→20:28)
[2023-07-18] MEDS: DORNASE ALFA INH SOLN 1 MG/ML 2.5 ML AMP 2.5 MG INHALATION ×2 (15:23→20:28)
[2023-07-18] MEDS: ACETYLCYSTEINE 20% INHAL SOLN 800 MG/4 ML VIAL 200 MG INHALATION ×2 (15:24→20:28)
[2023-07-18] MEDS: LIDOCAINE HCL 1% PF INJ 5 ML VIAL INFILTRATE (15:45)
--- NOTE | 2023-07-18 15:58 | PC.NURSE ---
Patient transferred to ICU from 201. Patient intubated and sedated. Received report from KATHI Little. Dr. Stark to bedside, ETT exchange per MD. Bronchoscopy done with success due to desaturation. Mucous plug noted in second chest Xray. No sign of distress noted throughout procedure. Family updated by Dr. Stark and Mykel Guzmán RN Joint Cleaning Machine Operator. Mother and father at bedside with RN reviewing plan of care, PICC line consent and visitor policy.
[2023-07-18] MEDS: LACTATED RINGERS 1,000 ML 999 ML IV CONT (16:31)
[2023-07-18] MEDS: LACTATED RINGERS 1,000 ML 100 ML IV CONT (16:31)
[2023-07-18 16:32] LABS: Hematocrit 36.6 % (42.0-52.0); Hemoglobin 11.4 g/dL (14.0-18.0); Immature Platelet Fraction Pct 6.3 % (0.9-11.2); Mean Corpuscular HGB Conc 31.1 g/dl (32-36); Mean Corpuscular Hemoglobin 28.4 pg (26-34); Mean Corpuscular Volume 91.3 fl (80-100); Mean Platelet Volume 11.7 fl (7.4-10.4); Platelet Count Result 100 k/mm3 (150-375); Red Blood Count 4.01 M/mm3 (4.6-6.20); Red Cell Distribution Width 14.4 % (11.5-14.5); White Blood Count 26.1 K/mm3 (4.5-10.0)
[2023-07-18 16:41] LABS: Alanine Aminotransferase 23 U/L (6-50); Albumin Level 3.1 g/dL (3.5-5.1); Alkaline Phosphatase 94 U/L (38-126); Ammonia < 9 umol/L (9-30); Anion Gap 7 mmol/L (8-16); Aspartate Amino Transferase 49 U/L (17-59); Bilirubin,Total 0.7 mg/dL (0.2-1.3); Blood Urea Nitrogen 13 mg/dL (9-20); Calcium 7.7 mg/dL (8.4-10.2); Carbon Dioxide 26 mmol/L (22-30); Chloride 102 mmol/L (98-107); Estimated CRCL calculation 92 ml/min; Estimated Glomerular Filt Rate > 60; Glucose 144 mg/dL (65-110); Lactic Acid Reflex 1.4 mmol/L (0.7-2.0); Magnesium 2.2 mg/dL (1.6-2.3); Phosphorus 3.7 mg/dL (2.5-4.5); Potassium 3.5 mmol/L (3.4-5.0); Sodium 135 mmol/L (137-145)
[2023-07-18 17:00] LABS: Band Neutrophils Percent 18 % (0-6); Lymphocytes Absolute Manual 1.04 K/mm3 (1.1-4.5); Monocytes Absolute Manual 0.78 K/mm3 (0.1-0.90); Monocytes Percent Manual 3 % (3-9); Neutrophils Absolute Manual 24.27 K/mm3 (1.3-6.7); Neutrophils Percent Manual 75 % (46-73); Platelet Estimate Decreased (Adequate); Total Cells Counted 100
[2023-07-18 17:01] LABS: Schistocytes None Seen (NORMAL)
[2023-07-18 17:02] LABS: Hypochromasia 1+ (NORMAL)
[2023-07-18 17:56] LABS: Glucose Point of Care 127 mg/dl (65-105)
[2023-07-18] MEDS: POTASSIUM CHLORIDE 20 MEQ PACKET (FOR LIQUID) 40 MEQ FEED TUBE (18:05)
[2023-07-18] MEDS: NOREPINEPHRINE 8 MG/D5W 250 ML 8 MG/250 ML BAG 9.38 MG IV CONT (18:10)
[2023-07-18] MEDS: MINERAL OIL/WHITE PETROLATUM OINTMENT 1 APPLIC EACH EYE (20:17)
[2023-07-18] MEDS: CENTRAL LINE FLUSH 10 ML IV PUSH (21:50)
[2023-07-19] VITALS (66 sets, daily range): BP systolic 83–123; BP diastolic 53–76; PULSE 84–135; RESP 14–95; TEMP 37–39.3; O2SAT 20–99
[2023-07-19] MEDS: PROPOFOL IV EMULSION 100 ML 13.63 MG IV CONT (00:07)
[2023-07-19 00:16] LABS: Glucose Point of Care 107 mg/dl (65-105)
[2023-07-19] MEDS: ACETAMINOPHEN 325 MG TABLET 650 MG PO ×3 (00:24→16:34)
[2023-07-19] MEDS: LEVALBUTEROL NEB 1.25 MG/3 ML INHALATION ×4 (02:37→20:21)
[2023-07-19] MEDS: ACETYLCYSTEINE 20% INHAL SOLN 800 MG/4 ML VIAL 200 MG INHALATION ×4 (02:37→20:22)
[2023-07-19] MEDS: IPRATROPIUM BR 0.02% INH SOLN 0.5 MG/2.5 ML VIAL INHALATION ×4 (02:37→20:21)
[2023-07-19 05:24] LABS: Alveolar/Arterial O2 Gradient 311.4 mmHg; Base Excess ABG -1.1 mEq/l (+/-2.0); Carboxyhemoglobin 0.3 % THb (0-2.0); Fractional Inspired Oxygen 70 %; HCO3 ABG 23.2 mEq/l (22.0-26.0); Methemoglobin ABG 0.5 %THb (0-1.5); Oxygen Saturation ABG 98.9 % (95.0-100.0); Oxyhemoglobin 97.6 % THb (90.0-100.0); PCO2 ABG 37.3 mmHg (35.0-45.0); PO2 ABG 147.6 mmHg (80.0-100.0); PO2 FiO2 Ratio Arterial Blood 2.11 %; Reduced Hemoglobin 1.6 %THb (0-5.0); Total Hemoglobin 12.2 g/dL (12.0-18.0); pH ABG 7.411 (7.350-7.450)
[2023-07-19] MEDS: CENTRAL LINE FLUSH 10 ML IV PUSH ×3 (05:26→21:32)
[2023-07-19] MEDS: CEFEPIME 2 GM/NS 50 ML 2 GM/50 ML BAG IVPB ×3 (05:26→21:33)
[2023-07-19 05:29] LABS: Basophils Absolute Auto 0.1 K/mm3 (0.0-0.1); Basophils Percent Auto 0.3 % (0.2-1.2); Eosinophils Percent Auto 0.2 % (0-4.4); Hemoglobin 10.5 g/dL (14.0-18.0); Immature Granulocyte Absolute 0.18 K/mm3 (0.00-0.031); Immature Granulocyte Percent A 0.9 % (0-0.5); Immature Platelet Fraction Pct 6.2 % (0.9-11.2); Lymphocytes Absolute Auto 0.97 K/mm3 (0.9-3.2); Lymphocytes Percent Auto 5.1 % (18.3-44.2); Mean Corpuscular HGB Conc 30.9 g/dl (32-36); Mean Corpuscular Hemoglobin 28.5 pg (26-34); Mean Corpuscular Volume 92.1 fl (80-100); Mean Platelet Volume 11.7 fl (7.4-10.4); Monocytes Absolute Auto 0.8 K/mm3 (0.1-0.6); Monocytes Percent Auto 4.2 % (2.6-8.5); Neutrophils Absolute Auto 17.1 K/mm3 (1.3-6.7); Neutrophils Percent Auto 89.3 % (45.5-73.1); Platelet Count Result 90 k/mm3 (150-375); Red Blood Count 3.69 M/mm3 (4.6-6.20); Red Cell Distribution Width 14.5 % (11.5-14.5); White Blood Count 19.2 K/mm3 (4.5-10.0)
[2023-07-19 05:52] LABS: Lactic Acid Reflex 1.4 mmol/L (0.7-2.0)
[2023-07-19 05:57] LABS: Anisocytosis 1+ (NORMAL); Microcytosis 1+ (NORMAL); Platelet Estimate Decreased (Adequate); Schistocytes None Seen (NORMAL)
[2023-07-19] MEDS: LACTATED RINGERS 1,000 ML 100 ML IV CONT (05:58)
[2023-07-19] MEDS: NOREPINEPHRINE 8 MG/D5W 250 ML 8 MG/250 ML BAG 24.38 MG IV CONT (06:00)
[2023-07-19 06:13] LABS: Vancomycin Trough 12.6 ug/mL (10.0-20.0)
--- NOTE | 2023-07-19 06:21 | PCRCNOTE ---
the mother refused use of the vest due to cardiac defibrillator
[2023-07-19] MEDS: PROPOFOL IV EMULSION 100 ML 11.36 MG IV CONT (06:22)
[2023-07-19 06:36] LABS: Device VENTILATOR; Modified Allen's Test Pass; Site Drawn LEFT RADIAL
[2023-07-19 06:37] LABS: Arterial Blood Gas PEEP 10 cmH2O; Arterial Blood Gas Tidal Volume 450 ml; Arterial Blood Gas Vent Mode CMV; Arterial Blood Gas Ventilator rate 20 /MIN
[2023-07-19] MEDS: DORNASE ALFA INH SOLN 1 MG/ML 2.5 ML AMP 2.5 MG INHALATION ×2 (07:58→20:22)
[2023-07-19] MEDS: ATORVASTATIN 40 MG TABLET FEED TUBE (08:02)
[2023-07-19] MEDS: PANTOPRAZOLE SODIUM IV 40 MG VIAL IV PUSH (08:02)
--- NOTE | 2023-07-19 08:23 | WPDINTPN ---
Progress Note: A&P Assessment and Plan (1) Acute respiratory failure: Qualifiers: Respiratory failure complication: hypoxia and hypercapnia Qualified Code(s): J96.01 - Acute respiratory failure with hypoxia; J96.02 - Acute respiratory failure with hypercapnia Code(s): J96.00 - Acute respiratory failure, unspecified whether with hypoxia or hypercapnia Status: Acute Assessment and Plan: 07/18/2023: I was called to see the patient intermediate Unit, patient was obtunded, hypoxic, with agonal breathing, I decided to intubate the patient in the intermediate Unit. -patient was talking cardiac solid thought was that he could have a pulmonary embolism, pneumonia, mucus plugging as he had decreased right-sided breath sounds - Intubation was uneventful, 1st ETT at a cuff leak so had to be intubated the patient using a bougie. After the 2nd ETT was inserted patient had decreased O2 sats, so stat chest x-ray showed mucus plugging in the right mainstem, patient was placed back on the ventilator with a PEEP of 14, quickly suction him with some saline lavage, and I quickly bronch the patient, has significant thick mucus plugging in the right mainstem which was suctioned out, also had mild to thick in the left mainstem which was also suctioned out. His O2 sats improved to greater than 95%. -will start Pulmozyme, Mucomyst nebulizer -also started Xopenex and Atrovent bronchodilator treatments -07/18: ETT was withdrawn 3 cm, repeat chest x-ray showed ETT in good position but patient had worsening mucus plugging of the right lung Sedated with propofol, maintain RASS of 0 to -2 -chest x-ray this morning: Mild airspace opacities in right lower lung zone and left midlung zone with improvement on the right, consistent with pneumonia -ABGs reviewed, ventilator adjusted 07/18/2023: CTA chest abdomen and pelvis IMPRESSION: No CT evidence of acute pulmonary embolus. Right mainstem bronchus intubation. Bilateral lower lung aspiration. Bilateral pyelonephritis with new lobar nephronia and a small renal infarct on the right. (2) Sepsis: Qualifiers: Sepsis type: sepsis due to unspecified organism Severe sepsis acute organ dysfunction type: encephalopathy Code(s): A41.9 - Sepsis, unspecified organism Status: Acute Assessment and Plan: 07/17/2023: Patient presented with fevers, low blood pressures which responded well to IV fluid bolus Off note: Patient was admitted to [facility] for sepsis and was found to have Pseudomonas UTI and bilateral ureteral stones. He underwent a cystoscopy and bilateral ureteral stents were placed on 06/19/2023. Was sent home on home health with IV cefepime. 07/16/2023 D10 to the urology clinic and had a cystoscopy with bilateral ureteral stent removal, right ureteroscopy with stone extraction, left ureteroscopy with laser lithotripsy and stone extraction, and bilateral ureteral stent placement. He had both and SBT and a Barr after is the 1st procedure, and Barr was removed on 07/16/2023. Sepsis secondary to bilateral pyelonephritis as mentioned the CT scan above -patient was started on vancomycin and cefepime (07/17) -urine output has been adequate, renal function has been within normal limits -07/17 blood cultures: Pseudomonas 1 of 2 bottles, await sensitivities -07/17 urine cultures: Gram-negative bacilli -continues to be febrile, WBC trending down -07/18/2023: Venous Dopplers were negative for DVT Urine cultures on 06/19/2023 grew Pseudomonas (pansensitive except resistant to fluoroquinolones) (3) Pyelonephritis of right kidney: Code(s): N12 - Tubulo-interstitial nephritis, not specified as acute or chronic Status: Acute Assessment and Plan: Continue antibiotics as above, blood in urine cultures are pending 07/17/2023: CT scan of the chest, abdomen and pelvis on admission IMPRESSION: 1. Right-sided pyelonephritis. Left-sided pyelitis. 2
[2023-07-19 08:32] LABS: Alanine Aminotransferase 26 U/L (6-50); Albumin Level 2.5 g/dL (3.5-5.1); Alkaline Phosphatase 93 U/L (38-126); Anion Gap 5 mmol/L (8-16); Aspartate Amino Transferase 46 U/L (17-59); Bilirubin,Total 0.7 mg/dL (0.2-1.3); Blood Urea Nitrogen 13 mg/dL (9-20); Calcium 8.1 mg/dL (8.4-10.2); Carbon Dioxide 26 mmol/L (22-30); Chloride 105 mmol/L (98-107); Estimated CRCL calculation 103 ml/min; Estimated Glomerular Filt Rate > 60; Glucose 133 mg/dL (65-110); Magnesium 2.1 mg/dL (1.6-2.3); Potassium 3.9 mmol/L (3.4-5.0); Sodium 136 mmol/L (137-145)
--- NOTE | 2023-07-19 08:54 | P.PCNBED_ITS ---
Procedures Other Procedures Procedure 1: Other Procedure: Date: 07/18/2023 Procedure: Bronchoscopy Consent: Emergent Indication: airway surveillance, secretion clearance Monitoring: EKG, blood pressure, pulse oximetry Anesthesia: Patient has already been sedated with propofol Physician: Shelley Stark MD Equipment: [place] scope with bronchoscope attachment Complications: none Entry: A bronchoscope was lubricated and introduced through the indwelling ETT, in the standard fashion. Specimens: none Findings: ? Larynx: unable to assess (intubated) ? Tube: ETT at thick secretions which was suctioned ? Trachea: Trachea with thick clear secretions which was suctioned ? R mainstem: Right mainstem had mucus plugging, lavaged with saline and suctioned out thick mucus secretions, erythema over the right mainstem dudley ? RUL: Thick secretions seen ? RML: Thick secretions suctioned out ? RLL: Was not able to go with the bronchoscope that deep ? L mainstem: thick mucus secretions were suctioned and lavaged ? KOMAL: no secretions ? LLL: no secretions ? Lingula: no secretions
[2023-07-19 08:55] LABS: CRP 41.5 mg/dL (<1.0)
--- NOTE | 2023-07-19 09:08 | PCRCNOTE ---
Dr. Stark spoke with RT this morning to discuss CPT, pt's family refused the vest due to defibrillator on left side. RT spoke with family about hand held percussor to be performed on the right side away from defibillator, family agreed for this CPT to be performed instead.
[2023-07-19] MEDS: BACLOFEN 10 MG TABLET 20 MG FEED TUBE ×3 (09:19→16:34)
[2023-07-19] MEDS: MIRTAZAPINE 7.5 MG TABLET FEED TUBE (09:19)
[2023-07-19] MEDS: POTASSIUM/PHOSPHORUS/SODIUM 1.5 GM PACKET 1 PACKET PO (09:19)
[2023-07-19] MEDS: MINERAL OIL/WHITE PETROLATUM OINTMENT 1 APPLIC EACH EYE ×2 (09:20→21:32)
--- NOTE | 2023-07-19 10:15 | PC.NURSE ---
Family requested to bring in Gabapentin 1500mg doses per PEG and Fosoterodine 8 mg doeses per PEG. [facility] unable to provide staff analyst with these medications per PEG route.
--- NOTE | 2023-07-19 10:31 | PC.NURSE ---
Dr. Casas updated Propofol and Levophed rates, sedation switched to Fentanyl and Versed.
[2023-07-19] MEDS: FENTANYL 2,500MCG/NS250ML(*CRX 2,500 MCG/250 ML BAG IV CONT (10:42)
[2023-07-19] MEDS: MIDAZOLAM 100MG/NS 100ML(*CRX) 100 MG/100 ML BAG IV CONT (10:42)
--- NOTE | 2023-07-19 11:11 | PM.IMPN ---
Progress Note: A&P Assessment and Plan (1) Acute respiratory failure: Qualifiers: Respiratory failure complication: hypoxia and hypercapnia Qualified Code(s): J96.01 - Acute respiratory failure with hypoxia; J96.02 - Acute respiratory failure with hypercapnia Code(s): J96.00 - Acute respiratory failure, unspecified whether with hypoxia or hypercapnia Status: Acute Assessment and Plan: Patient developed acute respiratory failure 07/18 probably related to poor respiratory effort, weakness made worse from his MS and mucous plugging. Land Manager consulted and patient intubated in the room before being moved to ICU. In the ICU, he initially was stable before again becoming hypoxic. CXR showing right lung collapse and required fire control system installer to bronch patient to help remove secretions. Patient recovered with stable respiratory status. CTA showing no PE. Greatly apprecaite fire control system installer input Continue nebulizer treatments, Mucomyst and Pulmozyme. Continue abx (2) Septic shock: Code(s): A41.9 - Sepsis, unspecified organism; R65.21 - Severe sepsis with septic shock Status: Acute Assessment and Plan: The patient presents with high fever, tachycardia and leukocytosis. Hx of pseudomonas UTI BP soft at 90/58 in ED. His blood pressure improved after 30 mL/kg IV fluid bolus. BCx growing pseudomonas UCx growing GNB CT Chest/Abd/Pelvis showing right sided pyelonephritis, left sided pyelitis and mild bilateral hydronephrosis and hydroureter. Stents in expected position. Large volume of hematoma in the bladder. Mild atelectasis and emphysema but no evidence of PNA. Became hypotensive again requiring Levophed to be started on 07/18 WBC was up to 25K but better today Started on cefepime and Vanco. Continue IV abx. Wean Levophed as BP tolerates Resume TF when okay with fire control system installer. Monitor close since he does have hx of CHF. (3) Pyelonephritis of right kidney: Code(s): N12 - Tubulo-interstitial nephritis, not specified as acute or chronic Status: Acute Assessment and Plan: CT Abd/Pelvis showing right sided pyelonephritis, left sided pyelitis and mild bilateral hydronephrosis and hydroureter. Stents in expected position. Large volume of hematoma in the bladder. Suspect this is the source of his sepsis. As above (4) Altered mental status: Code(s): R41.82 - Altered mental status, unspecified Status: Acute Assessment and Plan: Patient was altered and poorly responsive prior to decompensation. Suspect metabolic encephalopathy due to sepsis. CT brain showing no acute findings. Monitor closely and consider repeating CT brain if he does not respond normally (5) Right renal stone: Code(s): N20.0 - Calculus of kidney Status: Acute Assessment and Plan: Patient was hospitalized here in June for sepsis and found to have pseudomonas UTI and bilateral ureteral stones. He underwent cystoscopy and bilateral ureteral stent placement on 06/19/23. Home with IV Cefepime. He returned to Urology clinic on 07/16 and had cystoscopy with bilateral ureteral stent removal, right ureteroscopy with stone extraction, left ureteroscopy with laser lithotripsy and stone extraction, and bilateral ureteral stent replacement. He had both an SPT and a Barr after surgery. Barr catheter was removed yesterday. Bladder stones noted. Urology consulted and they flushed the bladder due to the bladder hematoma (6) Bilateral hydronephrosis: Code(s): N13.30 - Unspecified hydronephrosis Status: Acute Assessment and Plan: Related to above (7) Multiple sclerosis: Code(s): G35 - Multiple sclerosis Status: Acute Assessment and Plan: Patient with chronic progressive MS. He is wheel-chair bound. He has PEG, suprapubic cath and colostomy. Patient is a full code. (8) Bladder stones: Code(s): N21.0 - Calculus in bladder St
--- NOTE | 2023-07-19 11:55 | PC.NURSE ---
Dr. Gonsalez at bedside. Notified of intermittent leaking at suprapubic catheter site. Will continue to monitor. updated family on plan of care and Microbiology results.
--- NOTE | 2023-07-19 12:08 | WPDUROPN2 ---
Progress Note: A&P Assessment and Plan (1) Septic shock: Code(s): A41.9 - Sepsis, unspecified organism; R65.21 - Severe sepsis with septic shock Status: Acute Assessment and Plan: pseudomonas growing from blood culture. UC with gram negative bacteria. Prior culture in June also had pseudomonas. Cefepime sensitive at that time. Continue antibiotics and supportive care. Stents are in place. Urine is draining. Creatinine is stable. (2) Pyelonephritis of right kidney: Code(s): N12 - Tubulo-interstitial nephritis, not specified as acute or chronic Status: Acute Assessment and Plan: Urine is clearing. No indication for surgical intervention at this time. Subjective Subjective Date/Time Seen: 07/19/23 12:08 Interval history: Mr. Juan was intubated and transferred to the ICU. He has continues to have intermittent fevers. His urine has cleared. He is having some drainage around the SPT, but continues to have excellent urine output. Exam Narrative: intubated in ICU : Other: no suprapubic distention Urinary Catheter: Urinary Catheter: patent and draining and urine clear Objective Data Vital Signs Vital Signs: Vital Signs - 24 hr 07/18/23 13:40 07/18/23 14:34 07/18/23 15:00 Temperature Pulse Rate 150 H 132 H 156 H Respiratory Rate 12 40 H Blood Pressure Pulse Oximetry 100 Oxygen Delivery Mechanical Ventilation Fraction of Inspired Oxygen 07/18/23 15:35 07/18/23 16:00 07/18/23 15:36 Temperature 37.2 C Pulse Rate 121 H 113 H Respiratory Rate 20 21 H Blood Pressure 83/60 L Pulse Oximetry 100 Oxygen Delivery Fraction of Inspired Oxygen 100 07/18/23 15:00 07/18/23 14:15 07/18/23 14:50 Temperature 37.5 C Pulse Rate 124 H 142 H Respiratory Rate 40 H Blood Pressure Pulse Oximetry 95 Oxygen Delivery Mechanical Ventilation Fraction of Inspired Oxygen 100 07/18/23 16:10 07/18/23 17:00 07/18/23 18:10 Temperature Pulse Rate 122 H 105 H 102 H Respiratory Rate 20 Blood Pressure 89/60 L Pulse Oximetry 100 Oxygen Delivery Mechanical Ventilation Fraction of Inspired Oxygen 100 07/18/23 14:15 07/18/23 18:00 07/18/23 14:15 Temperature 37.5 C Pulse Rate 136 H 101 H 136 H Respiratory Rate 19 16 Blood Pressure 139/72 89/60 L Pulse Oximetry 97 100 Oxygen Delivery Fraction of Inspired Oxygen 07/18/23 16:00 07/18/23 16:00 07/18/23 16:00 Temperature Pulse Rate 120 H Respiratory Rate Blood Pressure Pulse Oximetry 100 Oxygen Delivery Mechanical Ventilation Fraction of Inspired Oxygen 100 100 07/18/23 18:00 07/18/23 14:25 07/18/23 19:15 Temperature Pulse Rate 101 H 150 H 93 Respiratory Rate 32 H Blood Pressure 107/74 95/70 L Pulse Oximetry 76 L Oxygen Delivery Fraction of Inspired Oxygen 07/18/23 19:47 07/18/23 20:42 07/18/23 20:40 Temperature Pulse Rate 93 102 H 102 H Respiratory Rate 25 H Blood Pressure 96/67 L Pulse Oximetry 100 Oxygen Delivery Mechanical Ventilation Fraction of Inspired Oxygen 100 07/18/23 20:41 07/18/23 20:55 07/18/23 21:00 Temperature Pulse Rate 106 H 105 H 106 H Respiratory Rate 21 H 22 H 22 H Blood Pressure Pulse Oximetry Oxygen Delivery Fraction of Inspired Oxygen 07/18/23 20:00 07/18/23 20:00 07/18/23 20:00 Temperature Pulse Rate 95 Respiratory Rate Blood Pressure Pulse Oximetry 100 Oxygen Delivery Mechanical Ventilation Fraction of Inspired Oxygen 100 100 07/18/23 20:00 07/18/23 22:00 07/18/23 22:00 Temperature 37.5 C Pulse Rate 95 109 H 109 H Respiratory Rate 15 16 Blood Pressure 101/78 102/66 Pulse Oximetry 100 99 Oxygen Delivery Fraction of Inspired Oxygen 07/18/23 22:33 07/18/23 22:00 07/19/23 00:07 Temperature Pulse Rate 103 H 109 H 107 H Respiratory Rate 25 H 25 H Blood Pressure 102/66 Pulse Oximetry Ox
[2023-07-19] MEDS: CHOLECALCIFEROL 1,000 UNITS TABLET 1000 UNITS FEED TUBE (12:20)
[2023-07-19] MEDS: CYANOCOBALAMIN 1,000 MCG TABLET 1000 MCG FEED TUBE (12:20)
[2023-07-19] MEDS: FERROUS SULFATE LIQUID 325 MG/7.4 ML ELIXIR FEED TUBE (13:27)
[2023-07-19] MEDS: NOREPINEPHRINE 8 MG/D5W 250 ML 8 MG/250 ML BAG 35.63 MG IV CONT (14:05)
--- NOTE | 2023-07-19 17:05 | PC.NURSE ---
Dr. Stark notified of absent left pedal pulse, STAT JERMAIN ordered. MD also aware of temperature of 102.8F.
--- NOTE | 2023-07-19 17:40 | PHAR ---
Gabapentin Micromedex Product ID GABAPENTIN Ingredients Active Ingredients Gabapentin - 250 MG/5 ML Search similar products Excipients Acesulfame Carboxymethylcellulose Sodium Flavoring Aid (Peppermint and [place]ise) Show more (4) Overview Company [employer] Country [place] Regulatory Status RX Container Size Bottle of 1 473 ML Physical Description Form Oral Solution Color Clear Pale Yellow to Yellow Registry [id number] ([facility]) Company Contacts Contacts [employer]
--- NOTE | 2023-07-19 17:46 | PHAR ---
DRUG NAME: FESOTERODINE FUMARATE INGREDIENTS: FESOTERODINE FUMARATE -- 8 MG RELATED DOCUMENTS: DRUGDEX EVALUATIONS - FESOTERODINE COLOR: BLUE SHAPE: OVAL IMPRINT: FT IMPRINT CODE DESCRIPTION: DEBOSSED WITH LOGO ON ONE SIDE AND 'FT' ON THE OTHER SIDE. FORM: ORAL TABLET, EXTENDED RELEASE
[2023-07-19] MEDS: NOREPINEPHRINE 8 MG/D5W 250 ML 8 MG/250 ML BAG 28.13 MG IV CONT (22:25)
--- NOTE | 2023-07-19 23:51 | PC.NURSE ---
Vent alarming with technical code, high peak pressures, and exhalation blockage. Oxygen saturation 100%, Patient showing no signs of distress. Arleen ALICIA changed filters and reusable exhalation valve. Alarms resolved.
[2023-07-20] VITALS (56 sets, daily range): BP systolic 92–142; BP diastolic 60–86; PULSE 88–134; RESP 16–25; TEMP 36.4–39.3; O2SAT 96–98; BMI 24.5
[2023-07-20] MEDS: ACETAMINOPHEN 325 MG TABLET 650 MG PO ×2 (00:32→10:30)
[2023-07-20] MEDS: LEVALBUTEROL NEB 1.25 MG/3 ML INHALATION ×4 (01:45→20:46)
[2023-07-20] MEDS: ACETYLCYSTEINE 20% INHAL SOLN 800 MG/4 ML VIAL 200 MG INHALATION ×4 (01:45→20:44)
[2023-07-20] MEDS: IPRATROPIUM BR 0.02% INH SOLN 0.5 MG/2.5 ML VIAL INHALATION ×4 (01:46→20:45)
[2023-07-20] MEDS: CEFEPIME 2 GM/NS 50 ML 2 GM/50 ML BAG IVPB ×3 (04:05→21:38)
[2023-07-20 04:11] LABS: Basophils Percent Auto 0.3 % (0.2-1.2); Eosinophils Absolute Auto 0.2 K/mm3 (0-0.3); Eosinophils Percent Auto 1.6 % (0-4.4); Hematocrit 31.3 % (42.0-52.0); Hemoglobin 9.8 g/dL (14.0-18.0); Immature Granulocyte Absolute 0.18 K/mm3 (0.00-0.031); Immature Granulocyte Percent A 1.2 % (0-0.5); Immature Platelet Fraction Pct 6.9 % (0.9-11.2); Lymphocytes Absolute Auto 0.94 K/mm3 (0.9-3.2); Lymphocytes Percent Auto 6.3 % (18.3-44.2); Mean Corpuscular HGB Conc 31.3 g/dl (32-36); Mean Corpuscular Hemoglobin 28.7 pg (26-34); Mean Corpuscular Volume 91.8 fl (80-100); Mean Platelet Volume 11.7 fl (7.4-10.4); Monocytes Absolute Auto 0.7 K/mm3 (0.1-0.6); Monocytes Percent Auto 4.9 % (2.6-8.5); Neutrophils Absolute Auto 12.8 K/mm3 (1.3-6.7); Neutrophils Percent Auto 85.7 % (45.5-73.1); Platelet Count Result 91 k/mm3 (150-375); Red Blood Count 3.41 M/mm3 (4.6-6.20); Red Cell Distribution Width 14.6 % (11.5-14.5)
[2023-07-20 04:22] LABS: Alanine Aminotransferase 26 U/L (6-50); Albumin Level 2.7 g/dL (3.5-5.1); Alkaline Phosphatase 118 U/L (38-126); Anion Gap 5 mmol/L (8-16); Aspartate Amino Transferase 34 U/L (17-59); Bilirubin,Total 0.7 mg/dL (0.2-1.3); Blood Urea Nitrogen 9 mg/dL (9-20); Calcium 7.6 mg/dL (8.4-10.2); Carbon Dioxide 25 mmol/L (22-30); Chloride 104 mmol/L (98-107); Estimated CRCL calculation 116 ml/min; Estimated Glomerular Filt Rate > 60; Glucose 210 mg/dL (65-110); Magnesium 1.9 mg/dL (1.6-2.3); Phosphorus 2.1 mg/dL (2.5-4.5); Potassium 3.4 mmol/L (3.4-5.0); Sodium 134 mmol/L (137-145); Triglycerides 118 mg/dL (<150)
[2023-07-20 04:48] LABS: Platelet Estimate Decreased (Adequate)
[2023-07-20 04:51] LABS: Anisocytosis 1+ (NORMAL); Burr Cells 1+ (NORMAL); Large Platelets Present; Microcytosis 1+ (NORMAL); Schistocytes None Seen (NORMAL)
[2023-07-20 05:46] LABS: Alveolar/Arterial O2 Gradient 116.5 mmHg; Base Excess ABG -1.8 mEq/l (+/-2.0); Carboxyhemoglobin 0.2 % THb (0-2.0); Device VENTILATOR; Fractional Inspired Oxygen 35 %; HCO3 ABG 22.3 mEq/l (22.0-26.0); Methemoglobin ABG 0.4 %THb (0-1.5); Modified Allen's Test Unable to perform; Oxygen Content ABG 15.1 %vol (16.0-22.0); Oxygen Saturation ABG 97.2 % (95.0-100.0); Oxyhemoglobin 96.2 % THb (90.0-100.0); PCO2 ABG 35.4 mmHg (35.0-45.0); PO2 ABG 91.9 mmHg (80.0-100.0); PO2 FiO2 Ratio Arterial Blood 2.63 %; Reduced Hemoglobin 3.2 %THb (0-5.0); Site Drawn RIGHT RADIAL; Total Hemoglobin 11.1 g/dL (12.0-18.0); pH ABG 7.417 (7.350-7.450)
[2023-07-20 05:47] LABS: Arterial Blood Gas PEEP 10 cmH2O; Arterial Blood Gas Tidal Volume 450 ml; Arterial Blood Gas Vent Mode CMV; Arterial Blood Gas Ventilator rate 20 /MIN
[2023-07-20] MEDS: CENTRAL LINE FLUSH 10 ML IV PUSH ×3 (06:34→21:43)
[2023-07-20] MEDS: DORNASE ALFA INH SOLN 1 MG/ML 2.5 ML AMP 2.5 MG INHALATION ×2 (08:24→20:46)
[2023-07-20] MEDS: MIDAZOLAM HCL (*CRX) 2 MG/2 ML VIAL IV PUSH (08:35)
--- NOTE | 2023-07-20 08:40 | PCRCNOTE ---
RT notified Dr. Stark that during her assessment ETT cuff doesn't seem to be holding air and patient isn't getting their appropriate Vt. Patient was re-intubated with a size 7.5 ETT at 23 cm at lip; CO2 detector detected color change, Bilat BS heard, CXR ordered to confirm ETT placement. RT secured ETT at 23 cm at lip with ETT dougherty. Patient placed back on vent on current settings per Dr. Stark.
--- NOTE | 2023-07-20 08:56 | PC.NURSE ---
At 0830, This RN and Respiratory therapist at bedside when audible air leak of patients endotracheal cuff was noted. Respiratory assisted with reinflation of patients endotracheal cuff. Leak still present after several instillations of air. Patient stable at this time with oxygen saturations of 98%. MD made aware of cuff leak and determined cuff was popped on assessment. MD at bedside. Verbal order to grab reintubation kit and sedate patient with 2 mg of IV push versed. 2 mg IV push versed administered at 0835, patient reintubated with 7.5 ET tube at 23 at lip at 0839. Color change noted on CO2 detecter per Ambu bag, bilateral breath sounds present, stat chest X-ray obtained. Patient reconnected to ventilator with previous settings. All vital signs remain stable at this time. RN to continue to monitor patient.
[2023-07-20] MEDS: MIRTAZAPINE 7.5 MG TABLET FEED TUBE (09:03)
[2023-07-20] MEDS: MINERAL OIL/WHITE PETROLATUM OINTMENT 1 APPLIC EACH EYE ×2 (09:03→21:43)
[2023-07-20] MEDS: BACLOFEN 10 MG TABLET 20 MG FEED TUBE ×3 (09:03→17:50)
[2023-07-20] MEDS: PANTOPRAZOLE SODIUM IV 40 MG VIAL IV PUSH (09:03)
[2023-07-20] MEDS: POTASSIUM CHLORIDE 20 MEQ PACKET (FOR LIQUID) 40 MEQ FEED TUBE (09:03)
[2023-07-20] MEDS: ATORVASTATIN 40 MG TABLET FEED TUBE (09:04)
[2023-07-20] MEDS: MAGNESIUM SULF 2 GM/WATER 50ML 2 GM/50 ML BAG IVPB (11:57)
[2023-07-20] MEDS: FERROUS SULFATE LIQUID 325 MG/7.4 ML ELIXIR FEED TUBE (11:59)
[2023-07-20] MEDS: CYANOCOBALAMIN 1,000 MCG TABLET 1000 MCG FEED TUBE (12:00)
[2023-07-20] MEDS: POTASSIUM PHOS/SODIUM PHOS 250 MG TABLET PO (12:00)
[2023-07-20] MEDS: CHOLECALCIFEROL 1,000 UNITS TABLET 1000 UNITS FEED TUBE (12:00)
--- NOTE | 2023-07-20 12:07 | WPDPROCEDUR ---
Procedures Intubation Intubation Date: 07/20/23 Intubation Time: 08:36 Consent: Discussed with patient's mother Domi, who is the POA. I explained to her that patient had a cuff leak of his ET tube, and that I would have to switch it out with a new ET tube. She is agreeable and consented to the procedure A pre-procedural Time-Out was completed immediately before starting the procedure and confirmed: Patient Identification, Site, Procedure, Patient Position and the Availability of Requisite Equipment: Yes Sedative: versed Mg given: 2 Laryngoscope: fiber optic video scope Assist device used: fiber optic device ET tube size: 7.5 Tube secured depth (cm): 23 Tube secured location: lips Tube placement confirmation: visualized tube passing through cords, equal breath sounds bilaterally, no breath sounds over epigastrium and confirmation by capnometry Patient tolerated procedure: well Intubation complications: none
--- NOTE | 2023-07-20 12:10 | WPDINTPN ---
Progress Note: A&P Assessment and Plan (1) Acute respiratory failure: Qualifiers: Respiratory failure complication: hypoxia and hypercapnia Qualified Code(s): J96.01 - Acute respiratory failure with hypoxia; J96.02 - Acute respiratory failure with hypercapnia Code(s): J96.00 - Acute respiratory failure, unspecified whether with hypoxia or hypercapnia Status: Acute Assessment and Plan: 07/18/2023: I was called to see the patient intermediate Unit, patient was obtunded, hypoxic, with agonal breathing, I decided to intubate the patient in the intermediate Unit. -patient was talking cardiac solid thought was that he could have a pulmonary embolism, pneumonia, mucus plugging as he had decreased right-sided breath sounds - Intubation was uneventful, 1st ETT at a cuff leak so had to be intubated the patient using a bougie. After the 2nd ETT was inserted patient had decreased O2 sats, so stat chest x-ray showed mucus plugging in the right mainstem, patient was placed back on the ventilator with a PEEP of 14, quickly suction him with some saline lavage, and I quickly bronch the patient, has significant thick mucus plugging in the right mainstem which was suctioned out, also had mild to thick in the left mainstem which was also suctioned out. His O2 sats improved to greater than 95%. -continue Pulmozyme, Mucomyst nebulizer -continue Xopenex and Atrovent bronchodilator treatments -07/18: ETT was withdrawn 3 cm, repeat chest x-ray showed ETT in good position but patient had worsening mucus plugging of the right lung -07/18: Bronchoscopy was performed for mucus plugging on the right side with atelectasis and collapse of the right lung. The right lung open up after bronchoscopy with good O2 sats. Bronchoscopy note in the chart -07/20: ETT had a cuff leak, new ETT using a bougie and glide scope was placed without any difficulty Chest x-ray this morning: Small right pleural effusion persists, left lung is clear Off all sedation 07/18/2023: CTA chest abdomen and pelvis IMPRESSION: No CT evidence of acute pulmonary embolus. Right mainstem bronchus intubation. Bilateral lower lung aspiration. Bilateral pyelonephritis with new lobar nephronia and a small renal infarct on the right. (2) Sepsis: Code(s): A41.9 - Sepsis, unspecified organism Status: Acute Assessment and Plan: 07/17/2023: Patient presented with fevers, low blood pressures which responded well to IV fluid bolus Off note: Patient was admitted to [facility] June for sepsis and was found to have Pseudomonas UTI and bilateral ureteral stones. He underwent a cystoscopy and bilateral ureteral stents were placed on 06/19/2023. Was sent home on home health with IV cefepime. 07/16/2023 patient went to the urology clinic and had a cystoscopy with bilateral ureteral stent removal, right ureteroscopy with stone extraction, left ureteroscopy with laser lithotripsy and stone extraction, and bilateral ureteral stent placement. He had both and SBT and a Barr after is the 1st procedure, and Barr was removed on 07/16/2023. Sepsis secondary to bilateral pyelonephritis as mentioned the CT scan above -patient was started on vancomycin and cefepime (07/17) -urine output has been adequate, renal function has been within normal limits -07/17 blood cultures: Pseudomonas , pansensitive except for fluoroquinolones -07/17 urine cultures: Pseudomonas pansensitive except soon fluoroquinolones, intermediate to imipenem -07/19: Sputum cultures pending -07/20: Repeat blood cultures -continues to be febrile, WBC trending down -07/18/2023: Venous Dopplers were negative for DVT 07/20: JERMAIN -no significant arterial occlusive disease Urine cultures on 06/19/2023 grew Pseudomonas (pansensitive except resistant to fluoroquinolones) (3) Pyelonephritis of right kidney: Code(s): N12 - Tubulo-interstitial nephritis, not specified as acute or chronic Stat
[2023-07-20] MEDS: NOREPINEPHRINE 8 MG/D5W 250 ML 8 MG/250 ML BAG 9.38 MG IV CONT (12:32)
[2023-07-20 13:46] LABS: Glucose Point of Care 171 mg/dl (65-105)
[2023-07-20] MEDS: dexmedeTOMIDine 400 MCG/100 ML 400 MCG/100 ML BAG IV CONT (15:05)
[2023-07-20 18:03] LABS: Glucose Point of Care 125 mg/dl (65-105)
--- NOTE | 2023-07-20 18:26 | PM.IMPN ---
Progress Note: A&P Assessment and Plan (1) Acute respiratory failure: Qualifiers: Respiratory failure complication: hypoxia and hypercapnia Qualified Code(s): J96.01 - Acute respiratory failure with hypoxia; J96.02 - Acute respiratory failure with hypercapnia Code(s): J96.00 - Acute respiratory failure, unspecified whether with hypoxia or hypercapnia Status: Acute Assessment and Plan: Patient developed acute respiratory failure 07/18 probably related to poor respiratory effort, weakness made worse from his MS and mucous plugging. Sap Pp Consultant consulted and patient intubated in the room before being moved to ICU. In the ICU, he initially was stable before again becoming hypoxic. CXR showing right lung collapse and required package delivery room service runner to bronch patient to help remove secretions. Patient recovered with stable respiratory status. CTA showing no PE. ABG normal on CMV 20, 450 TV, PEEP 10 and FiO2 35%. ETT changed out today due to air leak. CXR today reviewed showing small right pleural effusion and clear left lung Sputum growing yeast. Probably colonization but patient still with fevers. Greatly appreciate package delivery room service runner input Continue nebulizer treatments, Mucomyst and Pulmozyme. Continue abx (2) Septic shock: Code(s): A41.9 - Sepsis, unspecified organism; R65.21 - Severe sepsis with septic shock Status: Acute Assessment and Plan: The patient presents with high fever, tachycardia and leukocytosis. Hx of pseudomonas UTI BP soft at 90/58 in ED. His blood pressure improved after 30 mL/kg IV fluid bolus. BCx growing Pseudomonas resistant to fluoroquinolones UCx growing Pseudomonas with similar resistant pattern CT Chest/Abd/Pelvis showing right sided pyelonephritis, left sided pyelitis and mild bilateral hydronephrosis and hydroureter. Stents in expected position. Large volume of hematoma in the bladder. Mild atelectasis and emphysema but no evidence of PNA. Became hypotensive again requiring Levophed to be started on 07/18 WBC was up to 25K but better today Started on cefepime and Vanco. Able to wean Levophed. Patient with fevers still so re-cultured. Continue IV abx. Wean Levophed as BP tolerates (3) Pyelonephritis of right kidney: Code(s): N12 - Tubulo-interstitial nephritis, not specified as acute or chronic Status: Acute Assessment and Plan: CT Abd/Pelvis showing right sided pyelonephritis, left sided pyelitis and mild bilateral hydronephrosis and hydroureter. Stents in expected position. Large volume of hematoma in the bladder. Bladder irrigated at bedside. Suspect this is the source of his sepsis. Hematoma resolved now with clear urine As above (4) Altered mental status: Code(s): R41.82 - Altered mental status, unspecified Status: Acute Assessment and Plan: Patient was altered and poorly responsive prior to decompensation. Suspect metabolic encephalopathy due to sepsis and from MS. CT brain showing old infarcts in the temporal parietal regions bilaterally but no acute findings. Monitor closely and consider repeating CT brain if he does not respond normally. (5) Right renal stone: Code(s): N20.0 - Calculus of kidney Status: Acute Assessment and Plan: Patient was hospitalized here in June for sepsis and found to have pseudomonas UTI and bilateral ureteral stones. He underwent cystoscopy and bilateral ureteral stent placement on 06/19/23. Home with IV Cefepime. He returned to Urology clinic on 07/16 and had cystoscopy with bilateral ureteral stent removal, right ureteroscopy with stone extraction, left ureteroscopy with laser lithotripsy and stone extraction, and bilateral ureteral stent replacement. He had both an SP and a Barr after surgery. Bladder stones noted. He became febrile and was admitted on 07/18 Urology consulted and they flushed the bladder due to the bladder hematoma (6) Bilateral hydronephrosis: Cod
[2023-07-20 18:45] LABS: Vancomycin Trough 15.9 ug/mL (10.0-20.0)
[2023-07-20 21:51] LABS: Glucose Point of Care 176 mg/dl (65-105)
[2023-07-20 23:44] LABS: Glucose Point of Care 157 mg/dl (65-105)
[2023-07-21] VITALS (34 sets, daily range): BP systolic 85–117; BP diastolic 58–96; PULSE 106–134; RESP 16–24; TEMP 36.7–38.6; O2SAT 95–99
--- NOTE | 2023-07-21 | ECHO_ITS ---
Patient Info Name: Masoud Juan Age: 48 years : 1975 Gender: Male Ht: 70 in Wt: 179 lbs BSA: 2.01 m2 HR: 108 bpm BP: 117 / 72 mmHg Heart Rhythm: Tachycardia Technical Quality: Fair Exam Date: 07/21/2023 1:31 PM Exam Location: Echo Lab Patient Status: Inpatient Admit Date: 07/18/2023 Staff Ordering Physician: Wilner Galindo MD Applied Statistician: Marily Portillo RDCS Attending Provider: Evangelist Peters MD Exam Type: CA echo dop color flow w con Study Info Indications - Resp Failure Complete two-dimensional, color flow and Doppler transthoracic echocardiogram is performed. Summary 1. Complete two-dimensional, color flow and Doppler transthoracic echocardiogram is performed. 2. Normal left ventricular size with mild concentric hypertrophy. Good systolic function of all segments with ejection fraction of 60 to-65%. Normal diastolic function. 3. Left atrial chamber dimension is mildly enlarged. 4. There is trivial to mild anterior pericardial effusion. No tamponade. 5. No significant valve disease. 6. Sinus tachycardia. 7. Technically difficult study as the patient was on a ventilator. Left Ventricle Left ventricular chamber dimension is normal. Left ventricular systolic function is normal, estimated at 65-70%. There is mildly increased left ventricular wall thickness. Left ventricular septal wall motion is normal. The left ventricular diastolic function is normal. Right Ventricle Right ventricular chamber dimension is normal. Right ventricular systolic function is normal. Left Atria Left atrial chamber dimension is mildly enlarged. Right Atria Right atrial chamber dimension is normal. Aortic Valve The aortic valve is trileaflet. There is mild aortic valve sclerosis. There is no aortic valve stenosis. There is no aortic valve regurgitation. Pulmonic Valve The pulmonic valve is normal. There is no pulmonic valve stenosis. There is no pulmonic regurgitation. Mitral Valve The mitral valve has normal leaflets. There is no mitral valve stenosis. There is no mitral valve regurgitation. Tricuspid Valve The tricuspid valve leaflets are normal. There is no significant tricuspid valve stenosis. There is trace tricuspid valve regurgitation. No pulmonary hypertension, estimated pulmonary arterial systolic pressure is 32 mmHg. Pericardium/Pleural The pericardium appears normal. There is trivial to mild anterior pericardial effusion. No tamponade. Inferior Vena Cava Normal inferior vena cava with >50% collapse upon inspiration consistent with Empty right atrial pressure, 10 mmHg. Aorta The aortic root size at the sinus of Valsalva is normal. The prox ascending aorta size is normal. Left Ventricular Outflow Tract Name Value Normal LVOT 2D LVOT Diameter 1.99 cm LVOT Doppler LVOT Peak Gradient 3 mmHg LVOT Mean Gradient 1 mmHg LVOT VTI 11.98 cm LVOT VTI/AV VTI Ratio 0.48 LVOT Stroke Volume 37.38 ml LVOT CO 3.87 l/min LVOT CI 1.92 L/min/m2 Pulmonic Valve -----
[2023-07-21] MEDS: IPRATROPIUM BR 0.02% INH SOLN 0.5 MG/2.5 ML VIAL INHALATION ×4 (02:55→19:53)
[2023-07-21] MEDS: LEVALBUTEROL NEB 1.25 MG/3 ML INHALATION ×4 (02:55→19:53)
[2023-07-21] MEDS: ACETYLCYSTEINE 20% INHAL SOLN 800 MG/4 ML VIAL 200 MG INHALATION ×4 (02:56→19:53)
[2023-07-21] MEDS: CEFEPIME 2 GM/NS 50 ML 2 GM/50 ML BAG IVPB (04:41)
[2023-07-21 05:14] LABS: Glucose Point of Care 152 mg/dl (65-105)
[2023-07-21 05:35] LABS: Basophils Percent Auto 0.4 % (0.2-1.2); Eosinophils Absolute Auto 0.3 K/mm3 (0-0.3); Eosinophils Percent Auto 2.3 % (0-4.4); Hematocrit 29.5 % (42.0-52.0); Hemoglobin 9.2 g/dL (14.0-18.0); Immature Granulocyte Absolute 0.06 K/mm3 (0.00-0.031); Immature Granulocyte Percent A 0.5 % (0-0.5); Immature Platelet Fraction Pct 7.2 % (0.9-11.2); Lymphocytes Percent Auto 7.3 % (18.3-44.2); Mean Corpuscular HGB Conc 31.2 g/dl (32-36); Mean Corpuscular Hemoglobin 28.5 pg (26-34); Mean Corpuscular Volume 91.3 fl (80-100); Mean Platelet Volume 12.6 fl (7.4-10.4); Monocytes Absolute Auto 0.6 K/mm3 (0.1-0.6); Neutrophils Absolute Auto 9.3 K/mm3 (1.3-6.7); Neutrophils Percent Auto 84.5 % (45.5-73.1); Platelet Count Result 74 k/mm3 (150-375); Red Blood Count 3.23 M/mm3 (4.6-6.20); Red Cell Distribution Width 14.8 % (11.5-14.5)
[2023-07-21 05:51] LABS: Alveolar/Arterial O2 Gradient 117.9 mmHg; Base Excess ABG 2.4 mEq/l (+/-2.0); Carboxyhemoglobin 0.5 % THb (0-2.0); Fractional Inspired Oxygen 35 %; HCO3 ABG 25.7 mEq/l (22.0-26.0); Methemoglobin ABG 0.3 %THb (0-1.5); Oxygen Content ABG 19.2 %vol (16.0-22.0); Oxygen Saturation ABG 97.4 % (95.0-100.0); Oxyhemoglobin 96.5 % THb (90.0-100.0); PO2 ABG 89.8 mmHg (80.0-100.0); PO2 FiO2 Ratio Arterial Blood 2.57 %; Reduced Hemoglobin 2.7 %THb (0-5.0); Total Hemoglobin 14.1 g/dL (12.0-18.0); pH ABG 7.472 (7.350-7.450)
[2023-07-21 05:52] LABS: Device VENTILATOR; Modified Allen's Test Pass; Site Drawn LEFT RADIAL
[2023-07-21 05:53] LABS: Arterial Blood Gas PEEP 10 cmH2O; Arterial Blood Gas Vent Mode CMV; Arterial Blood Gas Ventilator rate 20 /MIN
[2023-07-21 05:54] LABS: Arterial Blood Gas Tidal Volume 450 ml
[2023-07-21] MEDS: CENTRAL LINE FLUSH 10 ML IV PUSH ×3 (06:06→20:34)
[2023-07-21 06:20] LABS: Alanine Aminotransferase 33 U/L (6-50); Albumin Level 2.7 g/dL (3.5-5.1); Alkaline Phosphatase 135 U/L (38-126); Anion Gap 6 mmol/L (8-16); Aspartate Amino Transferase 33 U/L (17-59); Bilirubin,Total 0.7 mg/dL (0.2-1.3); Blood Urea Nitrogen 12 mg/dL (9-20); Calcium 7.8 mg/dL (8.4-10.2); Carbon Dioxide 26 mmol/L (22-30); Chloride 101 mmol/L (98-107); Estimated CRCL calculation 116 ml/min; Estimated Glomerular Filt Rate > 60; Glucose 149 mg/dL (65-110); Magnesium 1.9 mg/dL (1.6-2.3); Phosphorus 1.4 mg/dL (2.5-4.5); Potassium 3.9 mmol/L (3.4-5.0); Sodium 133 mmol/L (137-145)
[2023-07-21 06:24] LABS: Burr Cells 1+ (NORMAL); Hypochromasia 1+ (NORMAL); Platelet Estimate Decreased (Adequate); Poikilocytosis 1+ (NORMAL); Schistocytes None Seen (NORMAL)
[2023-07-21] MEDS: DORNASE ALFA INH SOLN 1 MG/ML 2.5 ML AMP 2.5 MG INHALATION ×2 (08:01→19:53)
[2023-07-21] MEDS: BACLOFEN 10 MG TABLET 20 MG FEED TUBE ×3 (09:05→16:10)
[2023-07-21] MEDS: ATORVASTATIN 40 MG TABLET FEED TUBE (09:05)
[2023-07-21] MEDS: MIRTAZAPINE 7.5 MG TABLET FEED TUBE (09:06)
[2023-07-21] MEDS: PANTOPRAZOLE SODIUM IV 40 MG VIAL IV PUSH (09:06)
[2023-07-21] MEDS: ACETAMINOPHEN 325 MG TABLET 650 MG PO ×2 (09:12→20:42)
[2023-07-21] MEDS: SODIUM PHOSPHATE 20 MM in DEXTROSE 5% IN WATER 250 ML 50 MM IVPB (09:13)
--- NOTE | 2023-07-21 09:14 | WPDINTPN ---
Progress Note: A&P Assessment and Plan (1) Acute respiratory failure: Qualifiers: Respiratory failure complication: hypoxia and hypercapnia Qualified Code(s): J96.01 - Acute respiratory failure with hypoxia; J96.02 - Acute respiratory failure with hypercapnia Code(s): J96.00 - Acute respiratory failure, unspecified whether with hypoxia or hypercapnia Status: Acute Assessment and Plan: 07/18/2023: Patient was seen in intermediate Unit, patient was obtunded, hypoxic, with agonal breathing, patient was intubated and placed on mechanical ventilation -patient was talking cardiac solid thought was that he could have a pulmonary embolism, pneumonia, mucus plugging as he had decreased right-sided breath sounds - Intubation was uneventful, 1st ETT at a cuff leak so ETT was replaced. Post intubation patient had decreased O2 sats, so stat chest x-ray showed mucus plugging in the right mainstem, patient was placed back on the ventilator with a PEEP of 14, quickly suction him with some saline lavage, and bronchoscopy was done. Patient had significant thick mucus plugging in the right mainstem which was suctioned out, also had mild to thick in the left mainstem which was also suctioned out. His O2 sats improved to greater than 95%. 07/18/2023: CTA chest abdomen and pelvis IMPRESSION: No CT evidence of acute pulmonary embolus. Right mainstem bronchus intubation. Bilateral lower lung aspiration. Bilateral pyelonephritis with new lobar nephronia and a small renal infarct on the right. -07/18: ETT was withdrawn 3 cm, repeat chest x-ray showed ETT in good position but patient had worsening mucus plugging of the right lung -07/18: Bronchoscopy was performed for mucus plugging on the right side with atelectasis and collapse of the right lung. The right lung open up after bronchoscopy with good O2 sats. Bronchoscopy note in the chart -07/20: ETT had a cuff leak, new ETT using a bougie and glide scope was placed without any difficulty Chest x-ray this morning: Small right pleural effusion persists, left lung is clear ABG reviewed -decrease PEEP to 8 and rate to 16 Off all sedation Will request pulmonology to evaluate for for repeat bronchoscopy -continue Pulmozyme, Mucomyst nebulizer -continue Xopenex and Atrovent bronchodilator treatments (2) Sepsis: Code(s): A41.9 - Sepsis, unspecified organism Status: Acute Assessment and Plan: 07/17/2023: Patient presented with fevers, low blood pressures which responded well to IV fluid bolus Off note: Patient was admitted to [facility] for sepsis and was found to have Pseudomonas UTI and bilateral ureteral stones. He underwent a cystoscopy and bilateral ureteral stents were placed on 06/19/2023. Was sent home on home health with IV cefepime. 07/16/2023 patient went to the urology clinic and had a cystoscopy with bilateral ureteral stent removal, right ureteroscopy with stone extraction, left ureteroscopy with laser lithotripsy and stone extraction, and bilateral ureteral stent placement. He had both and SBT and a Barr after is the 1st procedure, and Barr was removed on 07/16/2023. Sepsis secondary to bilateral pyelonephritis as mentioned the CT scan above and pneumonia -patient was started on vancomycin and cefepime (07/17). 07/21 switch cefepime to meropenem for better Pseudomonas coverage and to cover anaerobes. -continue Levophed titration as needed. Currently off -07/17 blood cultures: Pseudomonas , pansensitive except for fluoroquinolones -07/17 urine cultures: Pseudomonas pansensitive except soon fluoroquinolones, intermediate to imipenem -07/19: Sputum cultures pending -07/20: Repeat blood cultures -continues to be febrile, WBC trending down -07/18/2023: Venous Dopplers were negative for DVT 07/20: JERMAIN -no significant arterial occlusive disease 07/21 check MRSA screen Urine cultures on 06/19/2023 grew Pseudomonas (pansensitive except resist
[2023-07-21] MEDS: MINERAL OIL/WHITE PETROLATUM OINTMENT 1 APPLIC EACH EYE ×2 (09:21→20:32)
[2023-07-21 09:32] LABS: Creatine Kinase 36 U/L (55-170)
--- NOTE | 2023-07-21 10:02 | PM.CNPUL ---
Assessment and Plan Assessment and plan (1) Mucus plug in respiratory tract: Code(s): T17.998A - Other foreign object in respiratory tract, part unspecified causing other injury, initial encounter Status: Acute Assessment and Plan: Patient with advanced multiple sclerosis requiring Yankauer suctioning over the last year. Patient had mucus plugging earlier this hospitalization requiring a bedside bronchoscopy on 07/18 for a large right mainstem mucus plug. Patient continues with right lower lobe atelectasis versus mucus plugging and will proceed with bronchoscopy in order to optimize his chances of a successful extubation. Sputum earlier in the hospitalization demonstrated normal or angio alexis, scant growth of yeast. I talked to the mother at the bedside and plate and explained the benefits and risks of the procedure. Risks described were bleeding, infection and pneumothorax. She wishes to proceed with the procedure. Discussed with Dr. Galindo History of Present Illness History of Present Illness Consult date: 07/21/23 Chief complaint: Sepsis Narrative: 07/21/2023: This is a new pulmonary consult for bronchoscopy 48-year-old with multiple sclerosis, bed-bound for 5 years, cardiac defibrillator in place, CHF, coronary artery disease, hyperlipidemia, hypertension, suprapubic catheter, colostomy, requiring Yankauer suction orally over the last 1 year presented on 07/18 with septic shock and right lung collapse. Patient had respiratory failure and was intubated. Patient underwent a bedside bronchoscopy on 07/18 with removal of a right mainstem mucus plug. 07/21/2023: The patient remains intubated on 35% FiO2 and 8 of PEEP. Chest x-ray demonstrates minimal right lower lobe atelectasis versus mucus plugging. Bronchoscopy request made to remove secretions in order to optimize him for an extubation trial. DATA Portable chest x-ray Comparison: 07/20/2023 Clinical History: Respiratory failure Findings:? Endotracheal tube and left-sided PICC line are in satisfactory positions. There is discoid right basilar atelectasis. Left lung clear.? Cardiomediastinal silhouette is stable. Bones and soft tissues are unremarkable. ? Impression: ? Support tubes, as above. Discoid right basilar atelectasis. Review of Systems Review of Systems: ROS unobtainable: Yes unobtainable due to endotracheal tube and unobtainable due to medical condition [facility] Past Medical History Medical History (Updated 07/21/23 @ 10:07 by Sebas Mclaughlin MD) Cardiac defibrillator in place CHF (congestive heart failure) Coronary artery disease History of [place] x2, 1 in 2018 and another in 2020. Hyperlipidemia Hypertension Kidney stone Multiple sclerosis Paraplegia Primary chronic progressive multiple sclerosis Patient is wheelchair-bound. Has suprapubic catheter, colostomy, and G-tube. Suprapubic catheter Surgical History Surgical History History of colostomy History of gastrostomy tube placement History of implantable cardioverter-defibrillator (ICD) insertion For history of cardiac arrest x2. History of oral surgery History of suprapubic catheter History of ureter stent Family History Family History Grandparent Acute myocardial infarction Cerebrovascular accident Colon cancer Congestive heart failure Diabetes mellitus Sibling Asthma Diabetes mellitus Son Asthma Mother History of blood clots Leukemia Other Chronic obstructive pulmonary disease Congestive heart failure Father Hypertension Grandparent Hypertension Other Family history non-contributory Social History Social History Social History: Surrogate medical decision maker: Masoud and Love Juan, parents. Code status: Full code. Smoking packs per day: 1
--- NOTE | 2023-07-21 10:59 | PCNFU ---
Nutrition Follow-Up Complete: Increased protein energy needs related to sepsis, mechanical ventilation as evidenced by need for full tube feeding goal: Meet estimated protein energy needs patient is progressing towards goal. We will continue current goal. Pt current nutrition is Triny AF 1.2 at 55 ml/hr. Last recorded weight is 81.4 kg, 77.4 kg on admit. Bowel Motility: +BM reported 07/20 Labs Reviewed:Glu 149, Na 133, Alb 2.7,Hct 29.5,Hgb 9.2 Meds Noted:Remeron, Lipitor, Vit D Skin: WNL Additional Notes: Patient remains on tube feedings of Vital AF 1.2 at 55 ml/hr-1452 kcals/91 gms protein/981 ml water. Plans for Broch today. No Sedation at this time. Tube feedings remain appropriate at this time. Flush 30 ml q 4 hours. Agree with diet orders. Monitoring tolerance, medications, labs, weights, plan of care Follow daily in rounds, reassess every Thursday and Thursday
[2023-07-21 11:49] LABS: Glucose Point of Care 164 mg/dl (65-105)
--- NOTE | 2023-07-21 12:01 | PM.IMPN ---
Progress Note: A&P Assessment and Plan (1) Acute respiratory failure: Qualifiers: Respiratory failure complication: hypoxia and hypercapnia Qualified Code(s): J96.01 - Acute respiratory failure with hypoxia; J96.02 - Acute respiratory failure with hypercapnia Code(s): J96.00 - Acute respiratory failure, unspecified whether with hypoxia or hypercapnia Status: Acute Assessment and Plan: Patient developed acute respiratory failure 07/18 probably related to poor respiratory effort, weakness made worse from his MS and mucous plugging. Strategy Manager consulted and patient intubated in the room before being moved to ICU. In the ICU, he initially was stable before again becoming hypoxic. CXR showing right lung collapse and required neurology nurse to bronch patient to help remove secretions. Patient recovered with stable respiratory status. CTA showing no PE. ABG normal on CMV 20, 450 TV, PEEP 10 and FiO2 35%. ETT changed out 07/20 due to air leak. CXR today reviewed showing right basilar atelectasis o/w clear Sputum growing yeast. Probably colonization but patient still with fevers. Greatly appreciate neurology nurse input Bronch planned today and appreciate Pulm input and expertise Continue nebulizer treatments, Mucomyst and Pulmozyme. Continue abx as below (2) Septic shock: Code(s): A41.9 - Sepsis, unspecified organism; R65.21 - Severe sepsis with septic shock Status: Acute Assessment and Plan: The patient presents with high fever, tachycardia and leukocytosis. Hx of pseudomonas UTI BP soft at 90/58 in ED. His blood pressure improved after 30 mL/kg IV fluid bolus. BCx growing Pseudomonas resistant to fluoroquinolones UCx growing Pseudomonas with similar resistant pattern (except intermdiate against Imipenem) CT Chest/Abd/Pelvis showing right sided pyelonephritis, left sided pyelitis and mild bilateral hydronephrosis and hydroureter. Stents in expected position. Large volume of hematoma in the bladder. Mild atelectasis and emphysema but no evidence of PNA. Became hypotensive again requiring Levophed started on 07/18; weaned off 07/20 WBC was up to 25K but better today Started on cefepime and Vanco. Still having fevers. Related to fungal? Related to abx/drug fever? Poor pseudomonal coverage (NAVEED 2,4 for Cefepime)? --Doppler negative for DVT 07/18, 07/21. Abx changed to Vanco and Meropenem but urine intermediate for imipenem. Consider double pseudomonal coverage Continue IV abx. (3) Pyelonephritis of right kidney: Code(s): N12 - Tubulo-interstitial nephritis, not specified as acute or chronic Status: Acute Assessment and Plan: CT Abd/Pelvis showing right sided pyelonephritis, left sided pyelitis and mild bilateral hydronephrosis and hydroureter. Stents in expected position. Large volume of hematoma in the bladder. Bladder was irrigated at bedside by urology. Suspect this is the source of his sepsis. Bladder hematoma probably resolved now with clear urine As above (4) Altered mental status: Code(s): R41.82 - Altered mental status, unspecified Status: Acute Assessment and Plan: Patient was altered and poorly responsive prior to decompensation. Suspect metabolic encephalopathy due to sepsis and from MS. CT brain showing old infarcts in the temporal parietal regions bilaterally but no acute findings. Responding some now that he is off sedation. Monitor closely and consider repeating CT brain if he does not respond normally. (5) Right renal stone: Code(s): N20.0 - Calculus of kidney Status: Acute Assessment and Plan: Patient was hospitalized here in June for sepsis and found to have pseudomonas UTI and bilateral ureteral stones. He underwent cystoscopy and bilateral ureteral stent placement on 06/19/23. Home with IV Cefepime. He returned to Urology clinic on 07/16 and had cystoscopy with bilateral ureteral stent removal, right ureteroscopy wi
[2023-07-21] MEDS: LIDOCAINE HCL 2% LOCAL INJ 20 ML VIAL 4 ML INFILTRATE (12:16)
--- NOTE | 2023-07-21 12:27 | SUR.OPER ---
See ICU vital documentation for vital signs and sedation medications.
[2023-07-21] MEDS: MIDAZOLAM HCL (*CRX) 2 MG/2 ML VIAL IV PUSH (12:30)
--- NOTE | 2023-07-21 12:32 | PM.OP ---
Procedure Note - Brief Procedure Note - Brief Date of procedure: 07/21/23 mucous plug Procedure performed: Bronchoscopy Surgeon: Sebas Mclaughlin MD Description of procedure: After informed consent and a time-out 2 mL of 1% lidocaine was applied through the existing ET tube. The bronchoscope was advanced through the existing ET tube and 2 mL of lidocaine was administered to the main [place] and then to the right mainstem. Patient exhibited coughing and 2 mg of Versed was pushed. Inspection of the right was performed there was minimal clear white secretions in the left lower lobe that were aspirated. All segments open following aspiration. there were no endobronchial lesions. The mucosa appeared normal. The left lung was inspected and there were trace secretions in the left lower lobe that were aspirated. All segments were open following aspiration and there were no endobronchial lesions. Approximately 10 mL of bronchial washing was obtained Bronchial washings were sent for bacterial stain and culture Chest x-ray demonstrated no pneumothorax and persistent RLL atelectasis vs distal mucous. Will sign off, call with questions.
[2023-07-21] MEDS: FERROUS SULFATE LIQUID 325 MG/7.4 ML ELIXIR FEED TUBE (12:33)
[2023-07-21] MEDS: CHOLECALCIFEROL 1,000 UNITS TABLET 1000 UNITS FEED TUBE (12:33)
[2023-07-21] MEDS: CYANOCOBALAMIN 1,000 MCG TABLET 1000 MCG FEED TUBE (12:33)
[2023-07-21] MEDS: MEROPENEM 1 GM/NS 100 ML 1 GM/100 ML BAG IVPB ×2 (12:33→20:33)
--- NOTE | 2023-07-21 12:56 | SUR.OPER ---
1243 Bronchoscopy specimen brought down to lab and handed to chemical laboratory scientist.
[2023-07-21] MEDS: PERFLUTREN LIPID MICROSPHERES 1.5 ML VIAL DILUTED TO 10 ML TOTAL VOLUME IV PUSH (14:02)
--- NOTE | 2023-07-21 17:09 | IVDEFINITY ---
Prior to administration of IV Definity the patient was educated on the risks and benefits of the imaging enhancing agent including potential adverse side effects. The patient verbalized understanding. Allergies were verified. No exclusion criteria were identified and at least one of the following inclusion criteria were met: 1) physician request, 2) patient technically difficult to image (per the [place] [employer] guidelines of two or more segments not discernable within the apical view), or 3) questionable left ventricular function. ?
[2023-07-21 18:40] LABS: Glucose Point of Care 184 mg/dl (65-105)
[2023-07-21 20:31] LABS: Glucose Point of Care 231 mg/dl (65-105)
[2023-07-21] MEDS: INSULIN ASPART (*BKC) 100 UNITS/ML SUB-Q (20:32)
[2023-07-22] VITALS (23 sets, daily range): BP systolic 96–118; BP diastolic 63–84; PULSE 101–122; RESP 12–22; TEMP 36.6–37.7; O2SAT 94–100
[2023-07-22] LABS: Glucose Point of Care 160 mg/dl (65-105)
[2023-07-22] MEDS: LEVALBUTEROL NEB 1.25 MG/3 ML INHALATION ×2 (01:33→07:42)
[2023-07-22] MEDS: ACETYLCYSTEINE 20% INHAL SOLN 800 MG/4 ML VIAL 200 MG INHALATION ×2 (01:33→07:42)
[2023-07-22] MEDS: IPRATROPIUM BR 0.02% INH SOLN 0.5 MG/2.5 ML VIAL INHALATION ×2 (01:33→07:42)
[2023-07-22] MEDS: MEROPENEM 1 GM/NS 100 ML 1 GM/100 ML BAG IVPB ×3 (05:30→21:29)
[2023-07-22 05:37] LABS: Basophils Percent Auto 0.3 % (0.2-1.2); Eosinophils Absolute Auto 0.2 K/mm3 (0-0.3); Hematocrit 28.3 % (42.0-52.0); Hemoglobin 8.7 g/dL (14.0-18.0); Immature Granulocyte Absolute 0.11 K/mm3 (0.00-0.031); Immature Platelet Fraction Pct 5.6 % (0.9-11.2); Lymphocytes Percent Auto 5.4 % (18.3-44.2); Mean Corpuscular HGB Conc 30.7 g/dl (32-36); Mean Corpuscular Hemoglobin 28.3 pg (26-34); Mean Corpuscular Volume 92.2 fl (80-100); Mean Platelet Volume 11.1 fl (7.4-10.4); Monocytes Absolute Auto 0.7 K/mm3 (0.1-0.6); Monocytes Percent Auto 5.9 % (2.6-8.5); Neutrophils Absolute Auto 9.5 K/mm3 (1.3-6.7); Neutrophils Percent Auto 85.4 % (45.5-73.1); Platelet Count Result 108 k/mm3 (150-375); Red Blood Count 3.07 M/mm3 (4.6-6.20); White Blood Count 11.1 K/mm3 (4.5-10.0)
[2023-07-22 05:47] LABS: Alveolar/Arterial O2 Gradient 138.2 mmHg; Base Excess ABG 2.1 mEq/l (+/-2.0); Carboxyhemoglobin 0.1 % THb (0-2.0); Fractional Inspired Oxygen 40 %; Methemoglobin ABG 0.3 %THb (0-1.5); Oxygen Content ABG 13.6 %vol (16.0-22.0); Oxyhemoglobin 97.2 % THb (90.0-100.0); PCO2 ABG 37.7 mmHg (35.0-45.0); PO2 ABG 103.6 mmHg (80.0-100.0); PO2 FiO2 Ratio Arterial Blood 2.59 %; Reduced Hemoglobin 2.4 %THb (0-5.0); Total Hemoglobin 9.8 g/dL (12.0-18.0); pH ABG 7.456 (7.350-7.450)
[2023-07-22 05:48] LABS: Device VENTILATOR; Modified Allen's Test Pass; Site Drawn LEFT RADIAL
[2023-07-22 05:49] LABS: Arterial Blood Gas PEEP 8 cmH2O; Arterial Blood Gas Tidal Volume 450 ml; Arterial Blood Gas Vent Mode CMV; Arterial Blood Gas Ventilator rate 16 /MIN
[2023-07-22 05:55] LABS: Alanine Aminotransferase 39 U/L (6-50); Albumin Level 2.9 g/dL (3.5-5.1); Alkaline Phosphatase 151 U/L (38-126); Anion Gap 6 mmol/L (8-16); Aspartate Amino Transferase 31 U/L (17-59); Bilirubin,Total 0.6 mg/dL (0.2-1.3); Blood Urea Nitrogen 14 mg/dL (9-20); Calcium 7.8 mg/dL (8.4-10.2); Carbon Dioxide 27 mmol/L (22-30); Chloride 103 mmol/L (98-107); Estimated CRCL calculation 116 ml/min; Estimated Glomerular Filt Rate > 60; Glucose 177 mg/dL (65-110); Phosphorus 2.8 mg/dL (2.5-4.5); Potassium 3.7 mmol/L (3.4-5.0); Sodium 136 mmol/L (137-145)
[2023-07-22] MEDS: CENTRAL LINE FLUSH 10 ML IV PUSH ×3 (06:43→22:00)
[2023-07-22] MEDS: ATORVASTATIN 40 MG TABLET FEED TUBE (08:32)
[2023-07-22] MEDS: PANTOPRAZOLE SODIUM IV 40 MG VIAL IV PUSH (08:32)
[2023-07-22] MEDS: MINERAL OIL/WHITE PETROLATUM OINTMENT 1 APPLIC EACH EYE (08:32)
[2023-07-22] MEDS: MIRTAZAPINE 7.5 MG TABLET FEED TUBE (08:32)
[2023-07-22] MEDS: BACLOFEN 10 MG TABLET 20 MG FEED TUBE ×3 (08:32→16:45)
[2023-07-22] MEDS: POTASSIUM CHLORIDE 20 MEQ PACKET (FOR LIQUID) 40 MEQ FEED TUBE (08:32)
[2023-07-22 09:06] LABS: Alveolar/Arterial O2 Gradient 99.7 mmHg; Arterial Blood Gas PEEP 8 cmH2O; Arterial Blood Gas Vent Mode SPONTANEOUS; Base Excess ABG 1.7 mEq/l (+/-2.0); Device VENTILATOR; Fractional Inspired Oxygen 30 %; Modified Allen's Test Pass; Oxygen Content ABG 13.3 %vol (16.0-22.0); Oxygen Saturation ABG 95.9 % (95.0-100.0); Oxyhemoglobin 94.9 % THb (90.0-100.0); PCO2 ABG 34.4 mmHg (35.0-45.0); PO2 ABG 73.8 mmHg (80.0-100.0); PO2 FiO2 Ratio Arterial Blood 2.46 %; Site Drawn RIGHT RADIAL; Total Hemoglobin 9.9 g/dL (12.0-18.0)
[2023-07-22 09:07] LABS: Arterial Blood Gas Pressure Support 5 cmH2O
--- NOTE | 2023-07-22 09:22 | P.PNINT_ITS ---
Progress Note: A&P Assessment and Plan (1) Acute respiratory failure: Qualifiers: Respiratory failure complication: hypoxia and hypercapnia Qualified Code(s): J96.01 - Acute respiratory failure with hypoxia; J96.02 - Acute respiratory failure with hypercapnia Code(s): J96.00 - Acute respiratory failure, unspecified whether with hypoxia or hypercapnia Status: Acute Assessment and Plan: 07/18/2023: Patient was seen in intermediate Unit, patient was obtunded, hypoxic, with agonal breathing, patient was intubated and placed on mechanical ventilation -patient was talking cardiac solid thought was that he could have a pulmonary embolism, pneumonia, mucus plugging as he had decreased right-sided breath sounds - Intubation was uneventful, 1st ETT at a cuff leak so ETT was replaced. Post intubation patient had decreased O2 sats, so stat chest x-ray showed mucus plugging in the right mainstem, patient was placed back on the ventilator with a PEEP of 14, quickly suction him with some saline lavage, and bronchoscopy was done. Patient had significant thick mucus plugging in the right mainstem which was suctioned out, also had mild to thick in the left mainstem which was also suctioned out. His O2 sats improved to greater than 95%. 07/18/2023: CTA chest abdomen and pelvis IMPRESSION: No CT evidence of acute pulmonary embolus. Right mainstem bronchus intubation. Bilateral lower lung aspiration. Bilateral pyelonephritis with new lobar nephronia and a small renal infarct on the right. -07/18: ETT was withdrawn 3 cm, repeat chest x-ray showed ETT in good position but patient had worsening mucus plugging of the right lung -07/18: Bronchoscopy was performed for mucus plugging on the right side with atelectasis and collapse of the right lung. The right lung open up after bronchoscopy with good O2 sats. Bronchoscopy note in the chart -07/20: ETT had a cuff leak, new ETT using a bougie and glide scope was placed without any difficulty Chest x-ray this morning: Small right pleural effusion persists, left lung is clear - 07/21 diagnostic and therapeutic bronchoscopy was done ABG and chest x-ray reviewed reviewed Off all sedation 5/8 PSV SBT done for more than 45 minutes.. RSBI, ABGI and Vitals acceptable. Pt awake and following commands. Will extubate and monitor. Patient will need frequent suctioning. He does have a cough but appears to be weak. I have Be discussed with patient's mother the patient is at risk of requiring re- intubation if he is unable to clear his secretions despite frequent suctioning. Continue bronchodilators p.r.n. (2) Sepsis: Code(s): A41.9 - Sepsis, unspecified organism Status: Acute Assessment and Plan: 07/17/2023: Patient presented with fevers, low blood pressures which responded well to IV fluid bolus Off note: Patient was admitted to [facility] for sepsis and was found to have Pseudomonas UTI and bilateral ureteral stones. He underwent a cystoscopy and bilateral ureteral stents were placed on 06/19/2023. Was sent home on home health with IV cefepime. 07/16/2023 patient went to the urology clinic and had a cystoscopy with bilater al ureteral stent removal, right ureteroscopy with stone extraction, left ureteroscopy with laser lithotripsy and stone extraction, and bilateral ureteral stent placement. He had both and SBT and a Barr after is the 1st procedure, and Barr was removed on 07/16/2023. Sepsis secondary to bilateral pyelonephritis as mentioned the CT scan above and pneumonia -patient was started on vancomycin and cefepime (07/17). 07/21 switch cefepime to meropenem for better Pseudomonas cover
--- NOTE | 2023-07-22 11:09 | PCFNICU ---
ICU Rounding Note: Pt current nutrition is Jevity 1.5. Nutrition recommendation: goal rate at 50 ml/hr. Last recorded weight is 79 kg, up from 77.4 kg on admit. Bowel Motility:colostomy Labs Reviewed:Glu 177, Na 136, Alb 2.96,Hct 28.3,Hgb 8.7 Meds Noted:Remeron, Protonix, NovoLog Skin: WNL Additional Notes: Patient extubated today. Tube feedings change to home tube feeding equivalent of Jevity 1.5 at 50 ml/hr. Tube feedings at goal rate providing 1650 kcals/70 gms protein/839 ml water. Flush 30 ml q 4 hours. Patient typically has bolus feedings of Isosource 1.5 250 ml 4 x per day with 60 ml flush after feedings. Agree with diet orders at this time. Following daily in ICU rounds and reassess every Thursday and Thursday.
[2023-07-22 11:50] LABS: Glucose Point of Care 185 mg/dl (65-105)
[2023-07-22] MEDS: FERROUS SULFATE LIQUID 325 MG/7.4 ML ELIXIR FEED TUBE (12:17)
[2023-07-22] MEDS: CHOLECALCIFEROL 1,000 UNITS TABLET 1000 UNITS FEED TUBE (12:17)
[2023-07-22] MEDS: CYANOCOBALAMIN 1,000 MCG TABLET 1000 MCG FEED TUBE (12:17)
--- NOTE | 2023-07-22 14:26 | PM.IMPN ---
Progress Note: A&P Assessment and Plan (1) Acute respiratory failure: Qualifiers: Respiratory failure complication: hypoxia and hypercapnia Qualified Code(s): J96.01 - Acute respiratory failure with hypoxia; J96.02 - Acute respiratory failure with hypercapnia Code(s): J96.00 - Acute respiratory failure, unspecified whether with hypoxia or hypercapnia Status: Acute Assessment and Plan: 07/18/2023: Patient was seen in intermediate Unit, patient was obtunded, hypoxic, with agonal breathing, patient was intubated and placed on mechanical ventilation -patient was talking cardiac solid thought was that he could have a pulmonary embolism, pneumonia, mucus plugging as he had decreased right-sided breath sounds - Intubation was uneventful, 1st ETT at a cuff leak so ETT was replaced. Post intubation patient had decreased O2 sats, so stat chest x-ray showed mucus plugging in the right mainstem, patient was placed back on the ventilator with a PEEP of 14, quickly suction him with some saline lavage, and bronchoscopy was done. Patient had significant thick mucus plugging in the right mainstem which was suctioned out, also had mild to thick in the left mainstem which was also suctioned out. His O2 sats improved to greater than 95%. 07/18/2023: CTA chest abdomen and pelvis IMPRESSION: No CT evidence of acute pulmonary embolus. Right mainstem bronchus intubation. Bilateral lower lung aspiration. Bilateral pyelonephritis with new lobar nephronia and a small renal infarct on the right. -07/18: ETT was withdrawn 3 cm, repeat chest x-ray showed ETT in good position but patient had worsening mucus plugging of the right lung -07/18: Bronchoscopy was performed for mucus plugging on the right side with atelectasis and collapse of the right lung. The right lung open up after bronchoscopy with good O2 sats. Bronchoscopy note in the chart -07/20: ETT had a cuff leak, new ETT using a bougie and glide scope was placed without any difficulty Chest x-ray this morning: Small right pleural effusion persists, left lung is clear - 07/21 diagnostic and therapeutic bronchoscopy was done ABG and chest x-ray reviewed reviewed Off all sedation 5/8 PSV SBT done for more than 45 minutes.. RSBI, ABGI and Vitals acceptable. Pt awake and following commands. Will extubate and monitor. Patient will need frequent suctioning. He does have a cough but appears to be weak. I have Be discussed with patient's mother the patient is at risk of requiring re-intubation if he is unable to clear his secretions despite frequent suctioning. Continue bronchodilators p.r.n. (2) Sepsis: Code(s): A41.9 - Sepsis, unspecified organism Status: Acute Assessment and Plan: 07/17/2023: Patient presented with fevers, low blood pressures which responded well to IV fluid bolus Off note: Patient was admitted to [facility] for sepsis and was found to have Pseudomonas UTI and bilateral ureteral stones. He underwent a cystoscopy and bilateral ureteral stents were placed on 06/19/2023. Was sent home on home health with IV cefepime. 07/16/2023 patient went to the urology clinic and had a cystoscopy with bilateral ureteral stent removal, right ureteroscopy with stone extraction, left ureteroscopy with laser lithotripsy and stone extraction, and bilateral ureteral stent placement. He had both and SBT and a Barr after is the 1st procedure, and Barr was removed on 07/16/2023. Sepsis secondary to bilateral pyelonephritis as mentioned the CT scan above and pneumonia -patient was started on vancomycin and cefepime (07/17). 07/21 switch cefepime to meropenem for better Pseudomonas coverage and to cover anaerobes. -continue Levophed titration as needed. Currently off -07/17 blood cultures: Pseudomonas , pansensitive except for fluoroquinolones -07/17 urine cultures: Pseudomonas pansensitive except soon fluoroquinolones, intermediate to imipenem -07/19: Sputum
[2023-07-22 16:45] LABS: Glucose Point of Care 156 mg/dl (65-105)
[2023-07-22 23:37] LABS: Glucose Point of Care 194 mg/dl (65-105)
[2023-07-23] VITALS (14 sets, daily range): BP systolic 103–130; BP diastolic 62–94; PULSE 95–124; RESP 12–24; TEMP 36.9–37.3; O2SAT 74–98
[2023-07-23 04:40] LABS: Basophils Percent Auto 0.3 % (0.2-1.2); Eosinophils Absolute Auto 0.5 K/mm3 (0-0.3); Eosinophils Percent Auto 5.2 % (0-4.4); Hematocrit 29.1 % (42.0-52.0); Immature Granulocyte Absolute 0.18 K/mm3 (0.00-0.031); Immature Granulocyte Percent A 1.9 % (0-0.5); Lymphocytes Absolute Auto 0.99 K/mm3 (0.9-3.2); Lymphocytes Percent Auto 10.4 % (18.3-44.2); Mean Corpuscular HGB Conc 30.9 g/dl (32-36); Mean Corpuscular Hemoglobin 28.7 pg (26-34); Mean Corpuscular Volume 92.7 fl (80-100); Mean Platelet Volume 10.8 fl (7.4-10.4); Monocytes Absolute Auto 0.7 K/mm3 (0.1-0.6); Monocytes Percent Auto 6.9 % (2.6-8.5); Neutrophils Absolute Auto 7.2 K/mm3 (1.3-6.7); Neutrophils Percent Auto 75.3 % (45.5-73.1); Platelet Count Result 152 k/mm3 (150-375); Red Blood Count 3.14 M/mm3 (4.6-6.20); Red Cell Distribution Width 15.1 % (11.5-14.5); White Blood Count 9.6 K/mm3 (4.5-10.0)
[2023-07-23 04:55] LABS: Alveolar/Arterial O2 Gradient 123.1 mmHg; Base Excess ABG 3.2 mEq/l (+/-2.0); Carboxyhemoglobin 0.2 % THb (0-2.0); Fractional Inspired Oxygen 35 %; HCO3 ABG 28.3 mEq/l (22.0-26.0); Methemoglobin ABG 0.3 %THb (0-1.5); Oxygen Content ABG 13.8 %vol (16.0-22.0); Oxygen Saturation ABG 94.9 % (95.0-100.0); Oxyhemoglobin 93.7 % THb (90.0-100.0); PCO2 ABG 45.5 mmHg (35.0-45.0); PO2 ABG 73.6 mmHg (80.0-100.0); Reduced Hemoglobin 5.8 %THb (0-5.0); Total Hemoglobin 10.4 g/dL (12.0-18.0); pH ABG 7.411 (7.350-7.450)
[2023-07-23 04:56] LABS: Alanine Aminotransferase 55 U/L (6-50); Albumin Level 3.1 g/dL (3.5-5.1); Alkaline Phosphatase 148 U/L (38-126); Anion Gap 8 mmol/L (8-16); Aspartate Amino Transferase 47 U/L (17-59); Bilirubin,Total 0.5 mg/dL (0.2-1.3); Blood Urea Nitrogen 15 mg/dL (9-20); Calcium 8.3 mg/dL (8.4-10.2); Carbon Dioxide 28 mmol/L (22-30); Chloride 104 mmol/L (98-107); Estimated CRCL calculation 134 ml/min; Estimated Glomerular Filt Rate > 60; Glucose 152 mg/dL (65-110); Phosphorus 3.1 mg/dL (2.5-4.5); Potassium 4.2 mmol/L (3.4-5.0); Sodium 140 mmol/L (137-145)
[2023-07-23 04:58] LABS: Device HIGH FLOW THERAPY; Modified Allen's Test Pass; Site Drawn RIGHT RADIAL
[2023-07-23] MEDS: MEROPENEM 1 GM/NS 100 ML 1 GM/100 ML BAG IVPB (06:17)
[2023-07-23] MEDS: CENTRAL LINE FLUSH 10 ML IV PUSH (06:17)
--- NOTE | 2023-07-23 06:22 | PC.NURSE ---
pt having increasing secretions this morning since bath. now having desats to mids 80s with quick recovery. voice weak but stronger than beginning of shift. discussed with patient about the possible need to reintubate if he keeps desating adn is unable to clear his secretions. Pt shook his head no when asked if he would lie to be reintubated.. I said I will call his mom, but he needs to talk with her during the day also.
--- NOTE | 2023-07-23 08:53 | WPDINTPN ---
Progress Note: A&P Assessment and Plan (1) Acute respiratory failure: Qualifiers: Respiratory failure complication: hypoxia and hypercapnia Qualified Code(s): J96.01 - Acute respiratory failure with hypoxia; J96.02 - Acute respiratory failure with hypercapnia Code(s): J96.00 - Acute respiratory failure, unspecified whether with hypoxia or hypercapnia Status: Acute Assessment and Plan: 07/18/2023: Patient was seen in intermediate Unit, patient was obtunded, hypoxic, with agonal breathing, patient was intubated and placed on mechanical ventilation -patient was talking cardiac solid thought was that he could have a pulmonary embolism, pneumonia, mucus plugging as he had decreased right-sided breath sounds - Intubation was uneventful, 1st ETT at a cuff leak so ETT was replaced. Post intubation patient had decreased O2 sats, so stat chest x-ray showed mucus plugging in the right mainstem, patient was placed back on the ventilator with a PEEP of 14, quickly suction him with some saline lavage, and bronchoscopy was done. Patient had significant thick mucus plugging in the right mainstem which was suctioned out, also had mild to thick in the left mainstem which was also suctioned out. His O2 sats improved to greater than 95%. 07/18/2023: CTA chest abdomen and pelvis IMPRESSION: No CT evidence of acute pulmonary embolus. Right mainstem bronchus intubation. Bilateral lower lung aspiration. Bilateral pyelonephritis with new lobar nephronia and a small renal infarct on the right. -07/18: ETT was withdrawn 3 cm, repeat chest x-ray showed ETT in good position but patient had worsening mucus plugging of the right lung -07/18: Bronchoscopy was performed for mucus plugging on the right side with atelectasis and collapse of the right lung. The right lung open up after bronchoscopy with good O2 sats. Bronchoscopy note in the chart -07/20: ETT had a cuff leak, new ETT using a bougie and glide scope was placed without any difficulty Chest x-ray this morning: Small right pleural effusion persists, left lung is clear - 07/21 diagnostic and therapeutic bronchoscopy was done ABG and chest x-ray reviewed reviewed Off all sedation 07/22 5/8 PSV SBT done for more than 45 minutes.. RSBI, ABGI and Vitals acceptable. Pt awake and following commands. Will extubate and monitor. Patient will need frequent suctioning. He does have a cough but appears to be weak. I have discussed with patient's mother the patient is at risk of requiring re-intubation if he is unable to clear his secretions despite frequent suctioning. Continue bronchodilators p.r.n. 07/23 patient was extubated yesterday and did well through the day yesterday. He was on 2 L nasal cannula for close to 12 hours with increased oxygen requirement last night. Overnight patient had deterioration in his respiratory status with increased oxygen requirement increased tachypnea and inability to clear his secretions. He refused nurses to perform NT suction stating that it is uncomfortable for him. This morning he is on Airvo at 35 L flow and 50% FiO2. He clearly is in respiratory distress with inability to clear secretions. I had long discussion with patient, his both parents while 2 of his sons were at bedside. I discussed with the patient that the only reasonable option at this time would be re-intubation for his respiratory failure respiratory distress and inability to clear his airway. I also discussed with him and his family the once intubated, patient may and will likely need tracheostomy. Patient overnight refused nurses to be intubated. He reiterated to me that he does not want to go back on the ventilator at any cost. I Explained to him and his family that if we do not provide him with mechanical ventilation support his oxygen levels and respiratory status will likely deteriorate further and he may from this. He verbalized understanding and states that he does not want to go on a v
[2023-07-23] MEDS: MORPHINE SULFATE (*CRX) 4 MG/ML INJ IV PUSH (09:15)
--- NOTE | 2023-07-23 09:17 | PM.EVENT ---
Event Note Event Note Event Note: Patient's oxygen requirement and respiratory distress continues to deteriorate. I was called into the room by patient and his family. Patient has decided to proceed with comfort care and palliative care at this time. Family is agreeable. Patient will be started on ICU comfort care and will be given morphine for air hunger and respiratory distress. Patient understands that he is going to and the goal of the treatment at this time is to keep him comfortable and treat his pain and respiratory distress. Family also verbalized understanding. I have placed orders for p.r.n. morphine Ativan and medications to decrease his respiratory secretions.
[2023-07-23] MEDS: MORPHINE SULFATE INJ (*CRX) 10 MG/ML AMP 5 MG IV PUSH (09:35)
[2023-07-23] MEDS: SCOPOLAMINE 1.5 MG PATCH TRANSDERM (09:37)
--- NOTE | 2023-07-23 11:11 | PCFNICU ---
ICU Rounding Note: Pt current nutrition is NPO. Last recorded weight is 79 kg, up from 77.4 kg on admit. Bowel Motility: +BM reported 07/20 Labs Reviewed:Glu 152, Cr 0.6,Alb 3.1 Meds Noted: Morphine Skin: WNL Additional Notes: Patient DNR status-comfort measures. Tube feedings have been discontinued. No further nutritional needs. Following daily in ICU rounds.
[2023-07-23] MEDS: MORPHINE SULFATE (*CRX) 2 MG/ML INJ 4 MG IV PUSH ×2 (11:30→14:17)
--- NOTE | 2023-07-23 16:28 | PM.IMHP ---
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 He had been admitted in June 2023 for Pseudomonas UTI associated with ureter stones and had ureteral stents placed and completed antibiotics as an outpatient. On 07-16-23 he underwent elective stent removal, laser lithotripsy, stone extration and stents replacement. Within 24 hours, he was febrile to 104.5 and he returned to the [place] [facility]. CT confirmed bilateral pyelitis/pyelonephritis and satisfactory stent positioning. By 07-18 pt had become hypoxic with agonal respirations. Mucus plugging was relieved with bronchoscopy; repeat CT showed bilateral lower lung aspiration. Following repeat bronchoscopy 07-21, he was extubated 07-22. Though his cough was noted to be weak, he did well through the day 07-22. His oxygen requirement increased overnight and he was noted to have poor airway secretion clearance and reportedly was refusing staff airway suctioning. By this AM (07-23), pt had been upgraded to a 35L/min airvo with 50% FIO2 and he remained in distress. Industrial Rehabilitation Consultant conversations are documented in chart. Pt ultimately chose to be DNR, with goal of comfort, in light of needing imminent return to mechanical ventilation and long-term tracheostomy. He has received several morphine 4 mg IV boluses which have given him partial relief of resp distress, while remaining on airvo. Pt remains interactive and responds appropriately in conversation, and family has reportedly joined in conversations and agree with comfort plan which includes addition of hospice support. Despite IV morphine boluses, it is evident that pt requires a continuous morphine infusion for better relief of dyspnea, air hunger and discomfort, along with IV lorazepam. He is unsafe for po med administration. He continues airvo in the hospital ICU presently. For these reasons his needs cannot be met with home hospice. Hospice admit staff have discussed this with pt and family (including Dr. Stone via telemedicine link). Patient acknowledges that although his wishes for no further mech ventilation will result in his soon, he wishes to proceed, with treatments to relieve his current symptoms. Review of Systems Review of Systems: As above, pt with limited stamina to communicate, conversation streamlined to most immediate needs. ROS unobtainable: Yes unobtainable due to medical condition Constitutional: Constitutional: Reports as per HPI, Reports body ache(s), Reports chills and Reports fatigue ENT: Reports Normal hearing present, Denies epistaxis and Denies nasal congestion Comments: wearing airvo Cardiovascular: Cardiovascular: Reports no additional cardiovascular complaints Respiratory: Respiratory: Reports as per HPI and Reports cough (very poor secretion clearance ) Gastrointestinal: Gastrointestinal: Reports no additional gastrointestinal complaints Genitourinary: Genitourinary: Reports as per HPI Musculoskeletal: Musculoskeletal: Reports myalgias Integumentary/Breasts: Skin/Breast: Reports system reviewed and no additional complaints, except as docu Neurologic: Comments: chronic weakness 4 extremities, autonomic bladder dysfunction, weak cough all related to MS Psychiatric: Psychiatric: Reports no additional psychiatric complaints PMFSH Past Medical History Medical History Cardiac defibrillator in place CHF (congestive heart failure) Coronary artery disease History of [place] x2, 1 in 2018 and another in 2019. Hyperlipidemia Hypertension Kidney stone Multiple sclerosis Paraplegia Primary chronic progressive multiple sclerosis Patient is wheelchair-bound. Has suprapubic catheter, colostomy, and G-tube. Suprapubic maegan
--- NOTE | 2023-07-27 18:31 | P.DS_ITS ---
DS: Admitting Diagnosis Discharge Date 07/23/23 Admitting Diagnosis fever DS: Discharge Diagnosis Discharge Diagnosis (1) Acute respiratory failure: Qualifiers: Respiratory failure complication: hypoxia and hypercapnia Qualified Code(s): J96.01 - Acute respiratory failure with hypoxia; J96.02 - Acute respiratory failure with hypercapnia Code(s): J96.00 - Acute respiratory failure, unspecified whether with hypoxia or hypercapnia Status: Acute Assessment and Plan: 07/18/2023: Patient was seen in intermediate Unit, patient was obtunded, hypoxic, with agonal breathing, patient was intubated and placed on mechanical ventilation -patient was talking cardiac solid thought was that he could have a pulmonary embolism, pneumonia, mucus plugging as he had decreased right-sided breath sounds - Intubation was uneventful, 1st ETT at a cuff leak so ETT was replaced. Post intubation patient had decreased O2 sats, so stat chest x-ray showed mucus plugging in the right mainstem, patient was placed back on the ventilator with a PEEP of 14, quickly suction him with some saline lavage, and bronchoscopy was done. Patient had significant thick mucus plugging in the right mainstem which was suctioned out, also had mild to thick in the left mainstem which was also suctioned out. His O2 sats improved to greater than 95%. 07/18/2023: CTA chest abdomen and pelvis IMPRESSION: No CT evidence of acute pulmonary embolus. Right mainstem bronchus intubation. Bilateral lower lung aspiration. Bilateral pyelonephritis with new lobar nephronia and a small renal infarct on the right. -07/18: ETT was withdrawn 3 cm, repeat chest x-ray showed ETT in good position but patient had worsening mucus plugging of the right lung -07/18: Bronchoscopy was performed for mucus plugging on the right side with atelectasis and collapse of the right lung. The right lung open up after bronchoscopy with good O2 sats. Bronchoscopy note in the chart -07/20: ETT had a cuff leak, new ETT using a bougie and glide scope was placed without any difficulty Chest x-ray this morning: Small right pleural effusion persists, left lung is clear - 07/21 diagnostic and therapeutic bronchoscopy was done ABG and chest x-ray reviewed reviewed Off all sedation 07/22 5/8 PSV SBT done for more than 45 minutes.. RSBI, ABGI and Vitals acceptable. Pt awake and following commands. Will extubate and monitor. Patient will need frequent suctioning. He does have a cough but appears to be weak. I have discussed with patient's mother the patient is at risk of requiring re-intubation if he is unable to clear his secretions despite frequent suctioning. Continue bronchodilators p.r.n. 07/23 patient was extubated yesterday and did well through the day yesterday. He was on 2 L nasal cannula for close to 12 hours with increased oxygen requirement last night. Overnight patient had deterioration in his respiratory status with increased oxygen requirement increased tachypnea and inability to clear his secretions. He refused nurses to perform NT suction stating that it is uncomfortable for him. This morning he is on Airvo at 35 L flow and 50% FiO2. He clearly is in respiratory distress with inability to clear secretions. I had long discussion with patient, his both parents while 2 of his sons were at bedside. I discussed with the patient that the only reasonable option at this time would be re-intubation for his respiratory failure respiratory distress and inability to clear his airway. I also discussed with him and his family the once intubated, patient may and will likely need tracheostomy. Patient overnight refused nurses to be intubated.
== END 2023-07-23 15:59 | disposition hospice, inpatient (51) | DRG 871 ==
LOC: ANHED 17:47 → ANH3MEDSUR 20:21 → ANHIMU 21:20 → ANHICU 07-18 13:12
PROVIDERS: Internal Medicine; Internal Medicine Pulmonary Disease; Physician Assistant; Admitting Provider Internal Medicine; Emergency Provider Emergency Medicine; PCP Internal Medicine; Visit Provider Student in an Organized Health Care Education/Training Program
PROC: 0BJ08ZZ Inspection of Tracheobronchial Tree, Via Natural or Artificial Opening Endoscopic (ICD-10-PCS; CPT 31622; principal; 2023-07-21 12:00)
DX: A41.52 Sepsis due to Pseudomonas (principal); G93.41 Metabolic encephalopathy; J96.01 Acute respiratory failure with hypoxia; R65.21 Severe sepsis with septic shock; J96.02 Acute respiratory failure with hypercapnia; N13.6 Pyonephrosis; T17.590A Other foreign object in bronchus causing asphyxiation, initial encounter; G72.81 Critical illness myopathy; G82.20 Paraplegia, unspecified; G35 Multiple sclerosis; I11.0 Hypertensive heart disease with heart failure; I25.2 Old myocardial infarction; I50.9 Heart failure, unspecified; D69.6 Thrombocytopenia, unspecified; F17.210 Nicotine dependence, cigarettes, uncomplicated; I25.10 Atherosclerotic heart disease of native coronary artery without angina pectoris; N21.0 Calculus in bladder; Z96.0 Presence of urogenital implants; Z95.810 Presence of automatic (implantable) cardiac defibrillator; Z93.1 Gastrostomy status; Z93.3 Colostomy status; B96.5 Pseudomonas (aeruginosa) (mallei) (pseudomallei) as the cause of diseases classified elsewhere; Z66 Do not resuscitate; Z99.3 Dependence on wheelchair
CPT/HCPCS: 36415; 36569; 36600; 70450; 71045; 71260; 71275; 74177; 80048; 80053; 80202; 81001; 82140; 82375; 82550; 82805; 82948; 83050; 83605; 83690; 83735; 84100; 84478; 84484; 85025; 85055; 85610; 85730; 86140; 87040; 87070; 87077; 87081; 87086; 87088; 87186; 87205; 93005; 93922; 93970; 94002; 94003; 94640; 94667; 94668; 94669; 96361; 96365; 96366; 96367; 99285; A9270; C8929; C9113; G0378; J0692; J1650; J1815; J2185; J2250; J2270; J2704; J3010; J3370; J3475; J7030; J7040; J7060; J7120; Q9957; Q9967

== ENCOUNTER 2023-07-23 16:00 | HOS | payer OTHER, MEDICARE, MEDICAID, SELFPAY ==
[2023-07-23 16:53] VITALS: BMI 25.0
--- NOTE | 2023-07-23 16:57 | HP_ITS ---
This report was moved to the correct visit on 07/24/2023. The original report was signed by Beau Stone MD on 07/23/23 [id number]. 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 He had been admitted in June 2023 for Pseudomonas UTI associated with ureter stones and had ureteral stents placed and completed antibiotics as an outpatient. On 07-16-23 he underwent elective stent removal, laser lithotripsy, stone extration and stents replacement. Within 24 hours, he was febrile to 104.5 and he returned to the [place] ER. CT confirmed bilateral pyelitis/pyelonephritis and satisfactory stent positioning. By 07-18 pt had become hypoxic with agonal respirations. Mucus plugging was relieved with bronchoscopy; repeat CT showed bilateral lower lung aspiration. Following repeat bronchoscopy 07-21, he was extubated 07-22. Though his cough was noted to be weak, he did well through the day 07-22. His oxygen requirement increased overnight and he was noted to have poor airway secretion clearance and reportedly was refusing staff airway suctioning. By this AM (07-23), pt had been upgraded to a 35L/min airvo with 50% FIO2 and he remained in distress. Reimbursement Coordinator conversations are documented in chart. Pt ultimately chose to be DNR, with goal of comfort, in light of needing imminent return to mechanical ventilation and long-term tracheostomy. He has received several morphine 4 mg IV boluses which have given him partial relief of resp distress, while remaining on airvo. Pt remains interactive and responds appropriately in conversation, and family has reportedly joined in conversations and agree with comfort plan which includes addition of hospice support. Despite IV morphine boluses, it is evident that pt requires a continuous morphine infusion for better relief of dyspnea, air hunger and discomfort, along with IV lorazepam. He is unsafe for po med administration. He continues airvo in the hospital ICU presently. For these reasons his needs cannot be met with home hospice. Hospice admit staff have discussed this with pt and family (including Dr. Stone via telemedicine link). Patient acknowledges that although his wishes for no further mech ventilation will result in his soon, he wishes to proceed, with treatments to relieve his current symptoms. Review of Systems Review of Systems: As above, pt with limited stamina to communicate, conversation streamlined to most immediate needs. ROS unobtainable: Yes unobtainable due to medical condition Constitutional: Constitutional: Reports as per HPI, Reports body ache(s), Reports chills and Reports fatigue ENT: Reports Normal hearing present, Denies epistaxis and Denies nasal congestion Comments: wearing airvo Cardiovascular: Cardiovascular: Reports no additional cardiovascular complaints Respiratory: Respiratory: Reports as per HPI and Reports cough (very poor secretion clearance ) Gastrointestinal: Gastrointestinal: Reports no additional gastrointestinal complaints Genitourinary: Genitourinary: Reports as per HPI Musculoskeletal: Musculoskeletal: Reports myalgias Integumentary/Breasts: Skin/Breast: Reports system reviewed and no additional complaints, except as docu Neurologic: Comments: chronic weakness 4 extremities, autonomic bladder dysfunction, weak cough all related to MS Psychiatric: Psychiatric: Reports no additional psychiatric complaints PMFSH Past Medical History Medical History Cardiac defibrillator in [place]
--- NOTE | 2023-07-23 17:08 | PM.DS ---
DS: Admitting Diagnosis Discharge Date 07/23/23 Admitting Diagnosis respiratory failure DS: Discharge Diagnosis Discharge Diagnosis Plan Assessment and Plan (1) Acute respiratory failure: ?Qualifiers: ?Respiratory failure complication:?hypoxia and hypercapnia? Qualified Code(s):?J96.01 - Acute respiratory failure with hypoxia; J96.02 - Acute respiratory failure with hypercapnia ?Code(s): J96.00 - Acute respiratory failure, unspecified whether with hypoxia or hypercapnia ?Status:?Acute ?Assessment and Plan: 07/18/2023:? Patient was seen in intermediate Unit, patient was obtunded, hypoxic, with agonal breathing, patient was intubated and placed on mechanical ventilation -patient was talking cardiac solid thought was that he could have a pulmonary embolism, pneumonia, mucus plugging as he had decreased right-sided breath sounds - Intubation was uneventful, 1st ETT at a cuff leak so? ETT was replaced.? Post intubation patient had decreased O2 sats, so stat chest x-ray showed mucus plugging in the right mainstem, patient was placed back on the ventilator with a PEEP of 14, quickly suction him with some saline lavage, and bronchoscopy was done.? Patient had significant thick mucus plugging in the right mainstem which was suctioned out, also had mild to thick in the left mainstem which was also suctioned out.? His O2 sats improved to greater than 95%. 07/18/2023:? CTA chest abdomen and pelvis IMPRESSION: No CT evidence of acute pulmonary embolus. Right mainstem bronchus intubation. Bilateral lower lung aspiration. Bilateral pyelonephritis with new lobar nephronia and a small renal infarct on the right. -07/18: ETT was withdrawn 3 cm, repeat chest x-ray showed ETT in good position but patient had worsening mucus plugging of the right lung -07/18:? Bronchoscopy was performed for mucus plugging on the right side with atelectasis and collapse of the right lung.? The right lung open up after bronchoscopy with good O2 sats.? Bronchoscopy note in the chart -07/20:? ETT had a cuff leak, new ETT using a bougie and glide scope was placed without any difficulty Chest x-ray this morning:? Small right pleural effusion persists, left lung is clear - 07/21 diagnostic and therapeutic bronchoscopy was done ABG and chest x-ray reviewed reviewed Off all sedation 07/22 5/ PSV SBT done for more than 45 minutes.. RSBI, ABGI and Vitals acceptable. Pt awake and following commands. Will extubate and monitor.? Patient will need frequent suctioning.? He does have a cough but appears to be weak.? I have? discussed with patient's mother the patient is at risk of requiring re-intubation if he is unable to clear his secretions despite frequent suctioning. Continue bronchodilators p.r.n. 07/23 patient was extubated yesterday and did well through the day yesterday.? He was on 2 L nasal cannula for close to 12 hours with increased oxygen requirement last night.? Overnight patient had deterioration in his respiratory status with increased oxygen requirement increased tachypnea and inability to clear his secretions.? He refused nurses to perform NT suction stating that it is uncomfortable for him.? This morning he is on Airvo at 35 L flow and 50% FiO2.? He clearly is in respiratory distress with inability to clear secretions. I had long discussion with patient, his both parents while 2 of his sons were at bedside.? I discussed with? the patient that the only reasonable option at this time would be re-intubation for his respiratory failure respiratory distress and inability to clear his airway.? I also discussed with him and his family the once intubated, patient may and will likely need tracheostomy.? Patient overnight refused nurses? to be intubated.? He reiterated to me that he does not want to go back on the ventilator at any cost.? I Explained to him and his family that if we do not provide him with mechanical ventilation support his oxygen levels and respiratory status will lik
[2023-07-23 17:33] VITALS: PULSE 100; RESP 20
[2023-07-23] MEDS: MORPHINE 50 MG/NS 100ML (*CRX) 50 MG/100 ML BAG IV CONT (17:33)
[2023-07-23] MEDS: MORPHINE SULFATE (*CRX) 2 MG/ML INJ IV PUSH ×2 (17:33→19:29)
[2023-07-23 17:45] VITALS: PULSE 92; RESP 18; O2SAT 93
[2023-07-23 18:35] VITALS: O2SAT 92
[2023-07-23] MEDS: LORazepam INJ (*CRX) 2 MG/ML VIAL 1 MG IV PUSH ×2 (18:45→20:50)
[2023-07-23] MEDS: GLYCOPYRROLATE INJ (*SP) 0.2 MG/ML VIAL 0.1 MG IV PUSH (19:29)
[2023-07-23 19:59] VITALS: PULSE 122; RESP 12; O2SAT 92
--- NOTE | 2023-07-23 22:30 | PC.NURSE ---
Pt transferred to 318. Parents at bedside
[2023-07-24] MEDS: LORazepam INJ (*CRX) 2 MG/ML VIAL 1 MG IV PUSH ×6 (00:31→21:52)
[2023-07-24] MEDS: GLYCOPYRROLATE INJ (*SP) 0.2 MG/ML VIAL 0.1 MG IV PUSH ×3 (00:32→21:51)
[2023-07-24] MEDS: MORPHINE SULFATE (*CRX) 2 MG/ML INJ IV PUSH ×4 (00:32→09:50)
--- NOTE | 2023-07-24 08:45 | PC.NURSE ---
Assessed pt at 0845. Pt appeared sedated. Pt did not seem agitated, in pain, or distress of any kind. Pt's father, mother, and unknown family member were in the room. Pt's father became agitated because we were not giving pt ativan every 2 hours scheduled. I explained to him that it was prn and pt did not appear to need it at this time. He became angry and said that Benedict told him otherwise at 0430 this morning. I explained that we were following Benedict' orders as well as explaining the prn process again. He cut me off and said he would speak with Benedict and have them straighten me out.
[2023-07-24 09:00] VITALS: BP 122/75; PULSE 137; RESP 20; TEMP 38.6; O2SAT 96
[2023-07-24] MEDS: PROCHLORPERAZINE EDISYLATE 10 MG/2 ML VIAL IV PUSH (09:50)
[2023-07-24] MEDS: CENTRAL LINE FLUSH 10 ML IV PUSH ×2 (09:53→21:54)
--- NOTE | 2023-07-24 10:23 | WPDPN ---
Progress Note: A&P Assessment and Plan (1) End of life care: Code(s): Z51.5 - Encounter for palliative care Status: Acute Assessment and Plan: Was started on morphine drip yesterday after prn morphine was not effective for his SOB/anxiety. Appears more comfortable now though he is tachycardic with a heart rate of 137. We will continue the morphine at the current dose of 2 mg/hr. He got one prn dose of morphine 2 mg early this morning when he was noted to be restless. His fever likely accounts for some of his tachycardia, but we will add scheduled ativan 1 mg q 4 h to help with restlessness. He continues to require GIP care for control of these symptoms. (2) Acute respiratory failure: Qualifiers: Respiratory failure complication: hypoxia and hypercapnia Qualified Code(s): J96.01 - Acute respiratory failure with hypoxia; J96.02 - Acute respiratory failure with hypercapnia Code(s): J96.00 - Acute respiratory failure, unspecified whether with hypoxia or hypercapnia Status: Acute Assessment and Plan: He was taken off airvo and is now on O2 at 5L per nasal cannula. (3) Multiple sclerosis: Code(s): G35 - Multiple sclerosis Status: Acute Subjective Date/time seen: 07/24/23 10:23 Interval history: 48yo male with MS, CAD, CHF, kidney stones with recent right ureteroscopy with stone extraction, left ureteroscopy with laser lithotripsy and stone extraction on 07/16 was admitted with with septic shock and respiratory failure. Required intubation initially , was extubated on 07/22. On Airvo until last night, was admitted to hospice yesterday and started on a morphine drip. He was able to interact with family and staff yesterday. This he is unresponsive, mouth breathing. Appears mildly tachypneic. Mother and father at bedside say he was quite restless early this morning, was given a dose of prn morphine and has seemed calmer since then. He continues on a morphine drip at 2 mg/hour. Review of Systems Review of Systems: ROS unobtainable: Yes unobtainable due to mental status Exam Const: General: diaphoretic (mildly) and patient obtunded Orientation/consciousness: patient obtunded HENMT: Head: normal to inspection Resp: Effort & Inspection: tachypneic Cardio: Rate: tachycardic Rhythm: regular rhythm Peripheral pulses: other Other: radial pulses weak GI: Inspection: other Auscultation: Hypoactive bowel sounds present Other: GT dressing C/D/I Urinary Catheter: Urinary Catheter: patent and draining and urine dark Skin: General skin exam: normal color Other: mildly diaphoretic Neuro: General: patient obtunded Extrem: Other: PICC RUE in place. Objective Data Vital Signs Vital Signs: Vital Signs - 24 hr 07/23/23 17:33 07/23/23 17:45 07/23/23 18:35 Temperature Pulse Rate 100 92 Respiratory Rate 20 18 Blood Pressure Pulse Oximetry 93 92 Oxygen Delivery High Flow Therapy with Na Oxygen Flow Rate 40 40 Fraction of Inspired Oxygen 60 60 07/23/23 19:59 07/24/23 09:00 Temperature 38.6 C H Pulse Rate 122 H 137 H Respiratory Rate 12 20 Blood Pressure 122/75 Pulse Oximetry 92 96 Oxygen Delivery Nasal Cannula Oxygen Flow Rate 5 Fraction of Inspired Oxygen Meds/Results Medications: Active Medications Generic Name Dose Route Start Last Admin Trade Name Freq PRN Reason Stop Dose Admin Artificial Tears 1 drop 07/23/23 16:39 Artificial Tears Ophth Soln 15 Ml Bottle EACH EYE Q12HR PRN Dry Eye(s) Bisacodyl 10 mg 07/23/23 16:40 Bisacodyl 10 Mg Suppository RECTAL QAM PRN Constipation Glycopyrrolate 0.1 mg 07/23/23 16:37 07/24/23 09:50 Glycopyrrolate Inj (*Sp) 0.2 Mg/Ml Vial IV PUSH 0.1 mg Q4HR PRN Administration Secretions Morphine Sulfate 50 mg in 100 mls @ 4 mls/hr 07/23/23 16:50 07/23/23 17:33 IV CONT 2 mg/hr .Q24H LLOYD 4 mls/hr Admin
[2023-07-24 14:40] VITALS: PULSE 90; RESP 20
[2023-07-24 14:41] VITALS: PULSE 90; RESP 20
[2023-07-24] MEDS: MORPHINE 50 MG/NS 100ML (*CRX) 50 MG/100 ML BAG IV CONT (14:41)
[2023-07-24 20:00] VITALS: O2SAT 97
[2023-07-24 21:22] VITALS: BP 127/82; PULSE 121; RESP 12; TEMP 36.4; O2SAT 97
[2023-07-25] MEDS: LORazepam INJ (*CRX) 2 MG/ML VIAL 1 MG IV PUSH ×3 (02:03→09:53)
[2023-07-25] MEDS: GLYCOPYRROLATE INJ (*SP) 0.2 MG/ML VIAL 0.1 MG IV PUSH ×3 (05:44→14:57)
[2023-07-25] MEDS: CENTRAL LINE FLUSH 10 ML IV PUSH ×3 (05:45→21:09)
[2023-07-25] MEDS: MORPHINE SULFATE (*CRX) 2 MG/ML INJ IV PUSH ×2 (09:52→14:59)
--- NOTE | 2023-07-25 14:28 | WPDPN ---
Progress Note: A&P Assessment and Plan (1) Acute respiratory failure: Qualifiers: Respiratory failure complication: hypoxia and hypercapnia Qualified Code(s): J96.01 - Acute respiratory failure with hypoxia; J96.02 - Acute respiratory failure with hypercapnia Code(s): J96.00 - Acute respiratory failure, unspecified whether with hypoxia or hypercapnia Status: Acute Assessment and Plan: In last 24 hours has required 3 doses of IV Glycopyrrolate prn, one additional dose of morphine IV prn this am, and one additional dose of ativan IV prn this am, all on top of ongoing continuous infusion morphine 2 mg/hr and intermittent ativan 1 mg q 4h IV. All required to control air hunger, dyspnea, pain, secretions, anxiety. Because family describes restlessness toward end of Ativan dosing interval, will increase Ativan to 2 mg IV q 4h scheduled. Because of pt's inability to clear secretions, drastically reduced level of consciousness and previously demonstrated unstable respiratory status, home hospice therapy with po medications is not possible. In addition to parenteral drug administration, pt continues round the clock expert reassessment of secretions, airway, anxiety and discomfort. (2) End of life care: Code(s): Z51.5 - Encounter for palliative care Status: Acute Assessment and Plan: As above. Conferred with parents and son in room today, all questions answered. Continues daily follow-up. (3) Sepsis: Code(s): A41.9 - Sepsis, unspecified organism Status: Acute Assessment and Plan: Fever presently subsided, monitoring, tylenol prn. (4) Primary chronic progressive multiple sclerosis: Code(s): G35 - Multiple sclerosis Status: Acute Plan As detailed above. Time Spent With Patient Time: Via telemedicine, 35 minutes, inclusive of chart review, conferral with other providers and family. Time with patient: 25 - 35 minutes Subjective Date/time seen: 07/25/23 14:28 Interval history: Mother, father, son at bedside this afternoon. They report pt had restlessness especially toward end of Ativan dosing intervals overnight. No purposeful interaction. Per family, has generally otherwise remained calm without distress. Review of Systems Review of Systems: ROS unobtainable: Yes unobtainable due to medical condition and unobtainable due to mental status Exam Narrative: Vitals 14:15 via [facility] fast brim pouncer: 116/68 128 16 97.7 Const: Other: Mouth breathing, semirecumbent in bed, does not purposefully rouse with verbal nor tactile stimulation. Eyes only semi-closed. Reflexive LUE movement with cares. HENMT: Face/Nose/Sinus: Normal nares present and no epistaxis Mouth: Yes dry mucous membranes Eyes: Sclera: sclerae normal Other: bilat lids partially closed, does not rouse Neck: Neck: supple and no JVD Cardio: Rate: tachycardic Rhythm: regular rhythm GI: Inspection: non-distended GI Palp: Yes Soft to palpation, No Tenderness to palpation present (GI) and No Guarding due to palpation present (GI) Auscultation: normal bowel sounds Other: PEG, colostomy, suprapubic cath present. Dressing midline. Urinary Catheter: Urinary Catheter: patent and draining and urine dark (dark yellow urine, not cloudy) Skin: General skin exam: normal color, no rashes or lesions noted and no erythema Lesions: no lesions noted Wounds: no wounds Extrem: General: edema Other: trace R hand edema; PICC line present & patent LUE Psych: Other: nonresponsive Objective Data Vital Signs Vital Signs: Vital Signs - 24 hr 07/24/23 14:40 07/24/23 14:41 07/24/23 21:22 Temperature 36.4 C Pulse Rate 90 90 121 H Respiratory Rate 20 20 12 Blood Pressure 127/82 Pulse Oximetry 97 Oxygen Delivery Oxygen Flow Rate 07/24/23 20:00 Temperature Pulse Rate Respiratory Rate Blood Pressure Pulse Oximetry 97 Oxygen Delive
[2023-07-25] MEDS: MORPHINE 50 MG/NS 100ML (*CRX) 50 MG/100 ML BAG IV CONT (14:57)
[2023-07-25] MEDS: LORazepam INJ (*CRX) 2 MG/ML VIAL IV PUSH ×3 (14:57→21:09)
[2023-07-25 16:00] VITALS: BP 126/87; PULSE 134; RESP 16; TEMP 36.6; O2SAT 97
[2023-07-25 20:00] VITALS: O2SAT 97
[2023-07-25 21:00] VITALS: BP 130/76; PULSE 129; RESP 10; TEMP 39.7; O2SAT 98
[2023-07-26] VITALS (7 sets, daily range): BP systolic 130–136; BP diastolic 78–79; PULSE 136; RESP 14–24; TEMP 35.8–39.5; O2SAT 96–97
[2023-07-26] MEDS: LORazepam INJ (*CRX) 2 MG/ML VIAL IV PUSH ×6 (01:23→20:41)
[2023-07-26] MEDS: ACETAMINOPHEN ELIXIR 325 MG/10.15 ML UDC 650 MG FEED TUBE (01:24)
[2023-07-26] MEDS: CENTRAL LINE FLUSH 10 ML IV PUSH ×3 (06:04→20:41)
--- NOTE | 2023-07-26 06:45 | PC.NURSE ---
[facility] called in regards to pt developing a fever of 103.4. Pt was warm to touch and other vitals were stable. Tylenol 650mg elixir via Peg tube PRN Q4H ordered was received and implemented. Pt fever decreased down to 96.9. Continued monitoring.
[2023-07-26] MEDS: MORPHINE SULFATE (*CRX) 2 MG/ML INJ IV PUSH (09:13)
[2023-07-26] MEDS: GLYCOPYRROLATE INJ (*SP) 0.2 MG/ML VIAL 0.1 MG IV PUSH (09:13)
[2023-07-26] MEDS: PROCHLORPERAZINE EDISYLATE 10 MG/2 ML VIAL IV PUSH (09:13)
[2023-07-26] MEDS: MORPHINE 50 MG/NS 100ML (*CRX) 50 MG/100 ML BAG 6 MG IV CONT (12:50)
--- NOTE | 2023-07-26 17:08 | WPDPN ---
Progress Note: A&P Assessment and Plan (1) Acute respiratory failure: Qualifiers: Respiratory failure complication: hypoxia and hypercapnia Qualified Code(s): J96.01 - Acute respiratory failure with hypoxia; J96.02 - Acute respiratory failure with hypercapnia Code(s): J96.00 - Acute respiratory failure, unspecified whether with hypoxia or hypercapnia Status: Acute Assessment and Plan: In last 24 hours has required an increased morphine drip to 3mg.hr, one prn dose of morphine 2 mg, one dose of robinal. All required to control air hunger, restlessness, pain, secretions, anxiety. Because family describes restlessness toward end of Ativan dosing interval, increased Ativan to 2 mg IV q 4h scheduled yesterday. Because of pt's inability to clear secretions, drastically reduced level of consciousness and previously demonstrated unstable respiratory status, home hospice therapy with po medications is not possible. In addition to parenteral drug administration, pt continues round the clock expert reassessment of secretions, airway, anxiety and discomfort. (2) End of life care: Code(s): Z51.5 - Encounter for palliative care Status: Acute Assessment and Plan: As above. Answered questions and provided education on end of life symptoms. Parents think he is currenty comfortable following the IV ibuprofen and increased morphine. They note that he is often restless in the methods time analyst starting around 2 am. (3) Sepsis: Code(s): A41.9 - Sepsis, unspecified organism Status: Acute Assessment and Plan: Fever successfully treated with IV ibuprofen. (4) Primary chronic progressive multiple sclerosis: Code(s): G35 - Multiple sclerosis Status: Acute Plan As detailed above. Time Spent With Patient Time: Via telemedicine, 35 minutes, inclusive of chart review, conferral with other providers and family. Time with patient: 25 - 35 minutes Subjective Date/time seen: 07/26/23 17:08 Interval history: 48 yo male with PMHx MS, CAD, recent ureteral stent placement respiratory failure and sepsis on [facility] hospice for control of hiis respiratory distress and pain. REquired an increase in his morphine drip to 3 mg/hour and scheduled ativan at a higher dose of 2 mg q 4 hours to treat symptoms of restlessness and discomfort. Also given IV ibuprofen for fever. Parents and brother at bedside, Review of Systems Review of Systems: ROS unobtainable: Yes unobtainable due to mental status Exam HENMT: Head: normal to inspection Mouth: Yes dry mucous membranes Resp: Auscultation: diminished lung sounds Cardio: Rate: tachycardic Rhythm: regular rhythm GI: Auscultation: Hypoactive bowel sounds present Urinary Catheter: Urinary Catheter: patent and draining and urine dark Neuro: General: patient obtunded Objective Data Vital Signs Vital Signs: Vital Signs - 24 hr 07/25/23 21:00 07/25/23 20:00 07/26/23 01:24 Temperature 39.7 C H 38.8 C H Pulse Rate 129 H Respiratory Rate 10 L Blood Pressure 130/76 Pulse Oximetry 98 97 Oxygen Delivery Nasal Cannula Oxygen Flow Rate 2.5 07/26/23 02:24 07/26/23 07:45 Temperature 35.8 C L 39.5 C H Pulse Rate Respiratory Rate 24 H Blood Pressure Pulse Oximetry Oxygen Delivery Oxygen Flow Rate Intake/Output Intake/Output: Intake & Output 07/23/23 07/24/23 07/25/23 07/26/23 23:59 23:59 23:59 23:59 Intake Total 100 100 Output Total 800 1850 650 Balance -700 -1750 -650 Meds/Results Medications: Active Medications Generic Name Dose Route Start Last Admin Trade Name Freq PRN Reason Stop Dose Admin Acetaminophen 650 mg 07/25/23 23:44 07/26/23 01:24 Acetaminophen Elixir 325 Mg/10.15 Ml Udc FEED TUBE 650 mg Q4H PRN Administration Mild Pain (1-3) or Fever Artificial Tears 1 drop 07/23/23 16:39 Artificial Tears Ophth Soln 15 Ml Bottle EACH EYE Q12HR PRN Dry
[2023-07-26] MEDS: IBUPROFEN IV 400 MG in SODIUM CHLORIDE 0.9% IV 100 ML 208 MG IVPB (22:11)
[2023-07-27 00:59] VITALS: TEMP 37
[2023-07-27] MEDS: LORazepam INJ (*CRX) 2 MG/ML VIAL IV PUSH ×2 (02:22→05:16)
[2023-07-27 03:08] VITALS: TEMP 37.8
[2023-07-27] MEDS: IBUPROFEN IV 400 MG in SODIUM CHLORIDE 0.9% IV 100 ML 208 MG IVPB (03:08)
[2023-07-27] MEDS: MORPHINE SULFATE (*CRX) 2 MG/ML INJ IV PUSH ×2 (03:09→06:07)
[2023-07-27 04:07] VITALS: PULSE 38; RESP 14
[2023-07-27] MEDS: MORPHINE 50 MG/NS 100ML (*CRX) 50 MG/100 ML BAG 6 MG IV CONT (04:07)
[2023-07-27 04:08] VITALS: TEMP 36.7
[2023-07-27] MEDS: CENTRAL LINE FLUSH 10 ML IV PUSH (05:16)
--- NOTE | 2023-07-27 08:36 | PM.DDS ---
Discharge Summary Date and Time Date of : 07/27/23 Time of : 06:35 Provider Pronounced By: Micki Devine RN/Nilda Fish RN Probable Cause of Probable Cause of : Respiratory failure associated with multiple sclerosis; sepsis of urinary origin Summary Hospital Course: Mr. Juan was readmitted to [facility] 07-17-23 presenting with fevers and quickly evolved into respiratory failure. After mechanical ventilation 07-18 to 07-22, he was extubated but observed to have a very weak cough and progressively increasing oxygen needs and poor secretion clearance. Pt chose no further intubation/mechanical ventilation on 07-23-23, chose DNR status and was enrolled in [facility]. His complex and critical needs could not be met in an outpatient hospice setting as he required IV morphine, IV ativan, IV glycopyrrolate to manage dyspnea, air-hunger, anxiety, pain and secretions. He could not handle po meds and his PEG tube was learned to be leaking and unreliable. Pt also required expert inpatient monitoring of respiratory, airway and comfort status. While on [facility] hospice, interdisciplinary team saw patient and family and offered continual support. Medications were titrated as clinically required. Fever developed 07-25 and was treated. Additional Data Confirmation of as documented by pronouncing clinician: Pupillary Reflex, Palpable Pulses, Response to Stimuli, Heart Tones and Breath Sounds Name of Provider Notified: Bertha Time Provider Notified: 06:45 [employer] Notified: Yes Date [facility] Notified of : 07/27/23 Time [facility] Notified of : 06:48 Advance directives: Yes Hospice patient?: Yes
--- NOTE | 2023-07-27 09:12 | PC.NURSE ---
patient to [facility]. waiting for [facility] to call back for possible donation
--- NOTE | 2023-07-27 09:53 | PC.NURSE ---
Family refused donation. Body released to the home. Levar Rae in [place] notified. Security notified.
== END 2023-07-27 06:35 | disposition expired | DRG 951 ==
LOC: ANHICU 17:13 → ANH3MEDSUR 22:39
PROVIDERS: Admitting Provider Internal Medicine Nephrology; PCP Internal Medicine; Visit Provider Internal Medicine Nephrology
DX: Z51.5 Encounter for palliative care (principal); A41.52 Sepsis due to Pseudomonas; J96.00 Acute respiratory failure, unspecified whether with hypoxia or hypercapnia; T83.592A Infection and inflammatory reaction due to indwelling ureteral stent, initial encounter; G82.20 Paraplegia, unspecified; G35 Multiple sclerosis; I11.0 Hypertensive heart disease with heart failure; I50.9 Heart failure, unspecified; I25.10 Atherosclerotic heart disease of native coronary artery without angina pectoris; E78.5 Hyperlipidemia, unspecified; F17.210 Nicotine dependence, cigarettes, uncomplicated; I25.2 Old myocardial infarction; Z99.3 Dependence on wheelchair; Z93.1 Gastrostomy status; Z93.3 Colostomy status; Z93.50 Unspecified cystostomy status; Z95.810 Presence of automatic (implantable) cardiac defibrillator; Z87.442 Personal history of urinary calculi; R00.0 Tachycardia, unspecified
CPT/HCPCS: A9270; J0780; J1741; J2060; J2270